=== PATIENT | female | born 1935 | race Caucasian/White ===

== ENCOUNTER 2024-02-25 10:31 | Emergency (ER) | payer MEDICARE, SELFPAY ==
[2024-02-25 10:36] VITALS: BP 153/76; PULSE 78; TEMP 36.8; O2SAT 98; BMI 32.3
--- NOTE | 2024-02-25 10:44 | PC.NURSE ---
Complains of pain to left knee, and left foot, denies injury to area, skin to LLE pink and warm and pulses present, no redness, bruising or swelling present.
--- NOTE | 2024-02-25 10:49 | XR_ITS ---
The [address] [address] Patient Name: ESPERANZA TELLEZ MRN: [id number] date: 1935 Sex: F Assigned Patient Location: ER Current Patient Location: ER Accession/Order Number: [id number] Exam Date: 02/25/2024 11:20 Report Date: 02/25/2024 12:51 At the request of: ADOLPH DOYLE Procedure: XR knee LT 3V EXAM: XR knee LT 3V HISTORY: pain COMPARISON: None. TECHNIQUE: AP, oblique, lateral x-ray left knee. FINDINGS: No fracture or focal bone lesion. Minor spurring without joint space narrowing. Subcutaneous edema. Joint effusion suprapatellar bursa. Faint chondrocalcinosis. No erosive or destructive change. XR/XR knee LT 3V IMPRESSION: Negative for fracture. Joint effusion, subcutaneous edema. Chondrocalcinosis without bony erosion. Electronically authenticated by: MARGO SANFORD Date: 02/25/2024 12:51
--- NOTE | 2024-02-25 10:49 | XR_ITS ---
The [address] [address] Patient Name: ESPERANZA TELLEZ MRN: [id number] date: 1935 Sex: F Assigned Patient Location: ER Current Patient Location: ER Accession/Order Number: [id number] Exam Date: 02/25/2024 11:20 Report Date: 02/25/2024 12:39 At the request of: ADOLPH DOYLE Procedure: XR foot LT 2V HISTORY: Left foot pain and swelling. XR foot LT 2V: 02/25/2024 11:20 AM EST COMPARISON: None. FINDINGS: There is soft tissue swelling along the dorsum of the foot. No fracture or dislocation is seen. There is a hallux valgus deformity. There appear to be at least mild degenerative changes of the first MTP joint and first metatarsal-sesamoid joints. There is a bipartite medial sesamoid bone. There is an enthesophyte at the Achilles tendon insertion on the calcaneus. There is an os peroneum. XR/XR foot LT 2V IMPRESSION: There is nonspecific soft tissue swelling along the dorsum of the foot, but no fracture or dislocation is seen. Electronically authenticated by: KENTRELL TAN Date: 02/25/2024 12:39
[2024-02-25] MEDS: KETOROLAC TROMETHAMINE 30 MG/ML VIAL 15 MG IM (10:56)
--- NOTE | 2024-02-25 11:05 | ED_ITS ---
HPI HPI - Extremity Injury (Lower) General Chief Complaint: Extremity Injury, Lower Stated Complaint: Extremity pain, lower Time Seen by Provider: 02/25/24 10:44 Source: patient Mode of arrival: Wheelchair History of Present Illness HPI Narrative: Patient is coming to the ER with left foot pain and left knee pain that started over the last 2 days she denies any fall or trauma, mentioned that she has not been able to put weight on her left foot since that day because of the pain Related Data Home Medications ?Medication ?Instructions ?Recorded ?Confirmed allopurinol 100 mg tablet 100 mg PO .every other day 02/25/24 02/25/24 carvedilol 25 mg tablet 25 mg PO BID 02/25/24 02/25/24 triamterene 37.5 1 tab PO QAM 02/25/24 02/25/24 mg-hydrochlorothiazide 25 mg tablet Previous Rx's ?Medication ?Instructions ?Recorded acetaminophen 650 mg 650 mg PO Q8H PRN pain #20 tabs 02/25/24 tablet,extended release (Tylenol Arthritis Pain) prednisone 20 mg tablet 40 mg (2 x 20 mg) PO DAILY 3 days 02/25/24 #6 tabs tramadol 50 mg tablet 50 mg PO BID PRN pain #6 tabs 02/25/24 Allergies Allergy/AdvReac Type Severity Reaction Status Date / Time No Known Drug Allergies Allergy Verified 02/25/24 10:42 Opioid HPI Opioid Management Most Recent Pain and Opioid Data: Last Pain Scale 6 02/25/24 10:56 02/25/24 Last ED Pain Assessment 02/25/24 10:55 Last MAR Pain Assessment 02/25/24 10:56 Review of Systems ROS Status of ROS 10 or more systems reviewed and unremark able except as noted in history and below [facility] Medical History (Updated 02/25/24 @ 13:52 by Serenity Rand MD) HTN (hypertension) ?I10 - Essential (primary) hypertension (ICD-10) Gout ?M10.9 - Gout, unspecified (ICD-10) Social History Little interest or pleasure in doing things: not at all Feeling down, depressed, or hopeless: not at all Exam Narrative Exam Narrative: Nurses notes and vital signs reviewed and patient is not hypoxic. Left lower extremity: There is a mild edema on the dorsum of the left foot with the patient have a good anterior tibial pulse the patient also have pain upon palpation of the anterior patella on the left side with the knee having some limitation of movement due to pain and small effusion There is no redness hotness or any signs of infection General: Well-appearing and in no apparent distress. Skin: Warm, dry, no pallor noted. No rash. Head: Normocephalic, atraumatic. Neck: Supple, non-tender. Eye: Pupils are equal, round and EOMI. No scleral icterus. Ears, Nose, Mouth, and Throat: TM are clear, no nasal mucosal hypertrophy. Oral mucosa is moist, no posterior oropharynx erythema, uvula is mid-line Cardiovascular: Regular Rate and Rhythm without murmur, gallop or rub. Respiratory: No accessory muscle use or respiratory distress. Lungs are clear to auscultation, no wheezing, rales or rhonchi Chest Wall: no tenderness Back: No midline thoracic or lumbar vertebral tenderness. No CVA tenderness GI: Abdomen is soft, non-distended. Normal bowel sounds. No masses appreciated. No tenderness to palpation. No rebound, guarding, or rigidity noted. Neurological: A&O x4. No cranial nerve dysfunction observed. No truncal ataxia. Moves all extremities. Sensation intact. Psychiatric: Cooperative and interactive. Normal mood and affect. Constitutional Vital Signs, click to edit/add: Last Vital Signs Temp 98.3 F 02/25/24 10:36 Pulse 78 02/25/24 10:36 Resp 16 02/25/24 10:36 BP 153/76 H 02/25/24 10:36 Pulse Ox 98 02/25/24 10:36 O2 Del Method Room Air 02/25/24 10:36 Course Vital Signs Vital signs: Vital Signs Temperature 98.3 F 02/25/24 10:36 Pulse Rate 78 02/25/24 10:36 Respiratory Rate 16 02/25/24 10:36 Blood Pressure 153/76 H 02/25/24 10:36 Pulse Oximetry 98 02/25/24 10:36 Oxygen Delivery Method Room Air 02/25/24 10:36 Temperature 98.3 F 02/25/24 10:36 Pulse Rate 78 02/25/24 10:36 Respiratory Rate 16 02/25/24 10:36 Blood Pressure 153/76 H 02/25/24 10:36 Pulse Oximetry 98 02/25/24 10:36 Oxygen Delivery Method Room Air 02/25/24 10:36 MDM - Extremity Injury (Lower) MDM Narrative Medical decision making narrative: Patient x-ray of the foot as well as x-ray of the knee showed no acute pathology The patient presentation could be secondary to arthritis or gout the patient was treated in the ER with Toradol after which she felt feeling better She was discharged home with tramadol prednisone for the next 3 days and Tylenol Patient was able to ambulate better after initial treatment ,she was instructed to come back in case of new symptoms of concern The patient is to follow up with primary care physician in next 2-3 days or to return to the emergency department should any of the signs or symptoms worsen or new symptoms develop. The patient agrees with the following Diagnosis and Treatment plan and the patient will be discharged home. Discharge Plan Discharge Chief Complaint: Extremity Injury, Lower Clinical Impression: Arthritis, Gout Patient Disposition: Home, Self-Care Time of Disposition Decision: 13:52 Condition: Good Prescriptions / Home Meds: New prednisone 20 mg tablet 40 mg PO DAILY 3 Days Qty: 6 0RF acetaminophen [Tylenol Arthritis Pain] 650 mg tablet extended release 650 mg PO Q8H PRN (Reason: pain) Qty: 20 0RF tramadol 50 mg tablet 50 mg PO BID PRN (Reason: pain) Qty: 6 0RF No Action allopurinol 100 mg tablet 100 mg PO .every other day carvedilol 25 mg tablet 25 mg PO BID triamterene-hydrochlorothiazid 37.5-25 mg tablet 1 tab PO QAM Print Language: Polish Instructions: Osteoarthritis (DC), Gout (ED) Referrals: Physician,Non-Staff, MD [Primary Care Provider] - 1 week Discharge Date/Time: 02/25/24 14:06
[2024-02-25 11:58] VITALS: BP 136/67; PULSE 68; O2SAT 96
[2024-02-25] MEDS: TRAMADOL HCL 50 MG TABLET PO (13:36)
== END 2024-02-25 14:06 | disposition home or self-care (01) ==
PROVIDERS: Emergency Provider Emergency Medicine
DX: M10.9 Gout, unspecified (principal); M19.90 Unspecified osteoarthritis, unspecified site; M25.462 Effusion, left knee
CPT/HCPCS: 73562; 73620; 96372; 99284; J1885

== ENCOUNTER 2024-12-07 15:09 | Emergency (ER) | payer MEDICARE, SELFPAY ==
[2024-12-07 15:13] VITALS: BP 180/77; PULSE 93; TEMP 36.4; O2SAT 96; BMI 32.4
--- OUTSIDE RECORDS SUMMARY | 2024-12-07 15:24 | XMS_ITS | CCD ---
Author Organization [facility] Care Team Providers [employer] Driver Name Role Phone MATT, DR BUENO Admitting Unavailable ANAND, DR BUENO Primary Care Unavailable ANAND, DR BUENO Consulting Unavailable ANAND, DR BUENO Attending Unavailable ANAND, DR BUENO Primary Care Unavailable HEMMER, DR NANCY Rangel Admitting Unavailable HEMMER, DR NANCY Rangel Attending Unavailable WEST, DR JACINTO Weiss Consulting Unavailable HEMMER, DR NANCY Rangel Consulting Unavailable ANAND, DR BUENO Primary Care Unavailable HEMMER, DR NANCY Rangel Admitting Unavailable ZIEBER, DR CHLOE Agee Consulting Unavailable HEMELIZABETH, DR NANCY Rangel Attending Unavailable HEMMER, DR NANCY Rangel Consulting Unavailable MATT, DR BUENO Primary Care Unavailable ANAND, DR BUENO Consulting Unavailable ANAND, DR BUENO Attending Unavailable ANAND, DR BUENO Admitting Unavailable ZIEBER, DR CHLOE Agee Consulting Unavailable Nicole, Flor Unavailable Phu Anand MD Unavailable Phu Anand MD Primary Care Provider [place] BODY WORKER, Mary Unavailable Unavailable [place] BODY WORKER, Mary Unavailable NANCY MUELLER Attending Unavailable HEMELIZABETH, NANCY Rangel Attending Unavailable HEMELIZABETH, NANCY Rangel Attending Unavailable HEMMERNANCY Attending Unavailable HEMMER, NANCY Rangel Attending Unavailable HEMMER, NANCY Rangel Attending Unavailable Allergies Allergy Classification Reported Allergen(s) Allergy Type Date of Onset Reaction(s) Facility (16 sources) Cephalexin Drug Allergy 12-06-2022 Anaphylaxis [facility] Medications Current Medications Medication Drug Class(es) Dates Sig (Normalized) Sig (Original) Acetaminophen (1 source) Acetaminophen Active allopurinol 100 mg oral tablet (17 sources) Xanthine Oxidase Inhibitor Start: 01-12-2022 End: 01-10-2024 take 1 tablet by mouth every other day allopurinol (Zyloprim) 100 MG tablet Indications: Elevated uric acid in blood Take 1 tablet (100 mg) by mouth every other day 45 tablet 3 01/10/2024 Active carvedilol 25 mg oral tablet (18 sources) alpha-Adrenergic Shyam, beta-Adrenergic Shyam Start: 11-16-2023 End: 01-10-2024 take 1 tablet by mouth in the morning carvedilol (Coreg) 25 MG tablet Indications: Essential hypertension Take 1 tablet (25 mg) by mouth in the morning and 1 tablet (25 mg) in the evening. Take with meals. Take with food.. 180 tablet 3 01/10/2024 Active Carvedilol Activ e cholecalciferol 0.05 mg oral capsule (13 sources) Vitamin D Start: 07-03-2024 take 1 capsule by mouth once daily cholecalciferol (Vitamin D-3) 50 MCG (2000 UT) capsule Indications: Vitamin D deficiency Take 1 capsule (50 mcg) by mouth Daily 100 capsule 3 07/03/2024 Active Start: 11-25-2022 End: 01-10-2024 take 1 capsule by mouth once daily cholecalciferol (Vitamin D-3) 125 MCG (5000 UT) capsule Indications: Vitamin D deficiency TAKE ONE CAPSULE BY MOUTH DAILY 90 capsule 11/25/2022 01/10/2024 Discontinued (Other) fluticasone propionate 0.05 mg/actuat metered dose nasal spray (1 source) Corticosteroid Start: 09-02-2021 take 2 spray(s) nasal route once daily Fluticasone Propionate 50 MCG/ACT 2 sprays Nasally Once a day for 14 day(s) August, Active hydroCHLOROthiazide 25 mg / triamterene 37.5 mg oral tablet (17 sources) Potassium-sparing Diuretic, Thiazide Diuretic Start: 03-29-2023 End: 01-10-2024 take 1 tablet by mouth in the morning triamterene-hydro chlorothiazide (Maxzide-25) 37.5-25 MG tablet Indications: Essential hypertension Take 1 tablet by mouth in the morning. 100 tablet 3 01/10/2024 Active triamcinolone acetonide 0.25 mg/ml topical cream (16 sources) Corticosteroid Start: 11-16-2023 triamcinolone (Kenalog) 0.025 % cream Indications: Dermatitis Apply topically 2 (two) times a day 30 g 2 11/16/2023 Active Triamterene-HCTZ (1 source) Triamterene-HCTZ Active Completed/Discontinued Medications Medication Drug Class(es) Dates Sig (Normalized) Sig (Original) Albuterol Sulfate (2.5 MG/ 3 ML) 2.5 MG/3ML 0.083% Nebulization Solution (1 source) Start: 04-10-2016 Albuterol Sulfate (2.5 MG/ 3 ML) 2.5 MG/3ML 0.083% Nebulization Solution 3ml as needed Inhalation 4 times a day Mar, Not-Taking Blood Glucose Monitoring Suppl (Blood Glucose Monitor System) w/Device kit (8 sources) Start: 07-05-2024 End: 10-08-2024 Blood Glucose Monitoring Suppl (Blood Glucose Monitor System) w/Device kit Indications: Type 2 diabetes mellitus with other specified complication, without long-term current use of insulin ([facility]) 1 each Daily 1 kit 07/05/2024 10/08/2024 Discontinued Start: 07-05-2024 Blood Glucose Monitoring Suppl (Blood Glucose Monitor System) w/Device kit Indications: Type 2 diabetes mellitus with other specified complication, without long-term current use of insulin ([facility]) 1 each Daily 1 kit 07/05/2024 Active Start: 07-05-2024 Blood Glucose Monitoring Suppl (Blood Glucose Monitor System) w/Device kit Indications: Type 2 diabetes mellitus with other specified complication, without long-term current use of insulin 1 each Daily 1 kit 07/05/2024 Active Start: 07-05-2024 Blood Glucose Monitoring Suppl (Blood Glucose Monitor System) w/Device kit Indications: Type 2 diabetes mellitus with other specified complication, without long-term current use of insulin ([facility]) 1 each Daily 1 kit 07/05/2024 Active Naproxen (1 source) Nonsteroidal Anti-inflammatory Drug Aleve Not-Taking oseltamivir 75 mg oral capsule (1 source) Neuraminidase Inhibitor Start: 04-10-20 16 take 1 capsule by mouth every twelve hours Tamiflu 75 MG 1 capsule Orally Twice a day for 5 day(s) Mar, Not-Taking Propranolol (1 source) beta-Adrenergic Shyam Proprano lol HCl Not-Taking Problems Active Problems Problem Classification Problem Date Documented Date Episodic/Chronic Administrative/social admission (2 sources) Patient encounter status; Translations: [Other specified counseling] 01-10-2024 Episodic Chronic kidney disease (20 sources) Chronic kidney disease stage 3B ; Translations: [Stage 3b chronic kidney disease (HCC)] Onset: 12-06-2022 Resolved: 07-05-2024 12-06-2022 Chronic Diabetes mellitus with complications (6 sources) Type 2 diabetes mellitus; Translations: [Type 2 diabetes mellitus with other specified complication] 07-05-2024 Chronic Diabetes mellitus without complication (1 source) Impaired fasting glycemia; Translations: [Impaired fasting glucose] 07-03-2024 Episodic Disorders of lipid metabolism (20 sources) Pure hypercholesterolemia; Translations: [Pure hypercholesterolemia, unspecified] Onset: 12-06-2022 Resolved: 07-03-2024 12-06-2022 Chronic Esophageal disorders (18 sources) Gastroesophageal reflux disease without esophagitis; Translations: [Gastro-esophageal reflux disease without esophagitis] Onset: 12-06-2022 12-06-2022 Chronic Essential hypertension (20 sources) Essential hypertension; Translations: [Essential (primary) hypertension] Onset: 10-24-2007 12-06-2022 Chronic Gout and other crystal arthropathies (20 sources) Primary gout; Translations: [Idiopathic gout, unspecified site] Onset: 12-06-2022 12-06-2022 Chronic Headache; including migraine (18 sources) Migraine without aura, not refractory ; Translations: [Migraine without aura, not intractable, without status migrainosus] Onset: 12-06-2022 12-06-2022 Chronic Hypertension with complications and secondary hypertension (19 sources) Hypertensive chronic kidney disease with stage 1 through stage 4 chronic kidney disease, or unspecified chronic kidney disease; Translations: [Benign hypertensive heart AND renal disease] Onset: 07-09-2020 12-06-2022 Chronic Menopausal disorders (20 sources) Other primary ovarian failure; Translations: [Decreased estrogen level] Onset: 06-11-2021 Chronic Nausea and vomiting (5 sources) Nausea; Translations: [Nausea] Onset: 10-21-2020 Episodic Nutritional deficiencies (20 sources) Vitamin D deficiency; Translations: [Vitamin D deficiency, unspecified] Onset: 12-06-2022 12-06-2022 Chronic Osteoporosis (18 sources) Localized osteoporosis - [place]; Translations: [Localized osteoporosis [[place]]] Onset: 12-06-2022 12-06-2022 Chronic Other bone disease and musculoskeletal deformities (1 source) Other specified disorders of bone density and structure, unspecified site; Translations: [OTH D/O BONE DEN STRUCT UNS SITE] Onset: 06-12-2021 Episodic Other connective tissue disease (4 sources) Pain in right foot; Translations: [PAIN IN RIGHT FOOT] Onset: 06-02-2021 Episodic Other connective tissue disease (1 source) Other specified soft tissue disorders; Translations: [OTHER SPEC SOFT TISSUE DISORDERS] Onset: 06-04-2021 Episodic Other connective tissue disease (1 source) Pain in left lower limb; Translations: [Pain in left leg] 03-07-2024 Episodic Other diseases of veins and lymphatics (1 source) Compression of vein; Translations: [COMPRESSION OF VEIN] Onset: 06-04-2021 Episodic Other inflammatory condition of skin (18 sources) Rosacea; Translations: [Other rosacea] Onset: 12-06-2022 12-06-2022 Chronic Other nervous system disorders (18 sources) Polyneuropathy; Translations: [Polyneuropathy, unspecified] Onset: 12-06-2022 12-06-2022 Chronic Other nutritional; endocrine; and metabolic disorders (20 sources) Hypercalcemia; Translations: [Hypercalcemia] Onset: 12-06-2022 12-06-2022 Chronic Other nutritional; endocrine; and metabolic disorders (20 sources) Morbid obesity; Translations: [Morbid (severe) obesity due to excess calories] Onset: 12-06-2022 12-06-2022 Chronic Other nutritional; endocrine; and metabolic disorders (20 sources) Body mass index 30+ - obesity; Translations: [Obesity, unspecified] Onset: 12-06-2022 Resolved: 10-08-2024 12-06-2022 Chronic Other upper respiratory disease (1 source) Allergic rhinitis; Translations: [Allergic rhinitis, unspecified] Chronic Other upper respiratory disease (1 source) Allergic rhinitis, unspecified Onset: 09-02-2021 Resolved: 09-02-2021 Chronic Spondylosis; intervertebral disc disorders; other back problems (18 sources) Degeneration of lumbar intervertebral disc; Translations: [Lumbar degenerative disc disease] Onset: 12-06-2022 12-06-2022 Chronic Unclassified (1 source) CHRN KIDNEY DISEASE STG 3 UNSP; Translations: [CHRN KIDNEY DISEASE STG 3 UNSP] Onset: 07-09-2020 Past or Other Problems Problem Classification Problem Date Documented Da te Episodic/Chronic Mood disorders (14 sources) Mood disorders Onset: 01-10-2024 01-10-2024 Other inflammatory condition of skin (16 sources) Dermatitis herpetiformis; 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] Onset: 12-06-2022 Resolved: 01-10-2024 12-06-2022 Chronic Other liver diseases (18 sources) Alkaline phosphatase raised; Translations: [Abnormal levels of other serum enzymes] Onset: 12-06-2022 12-06-2022 Episodic Other nutritional; endocrine; and metabolic disorders (18 sources) Blood urate raised; Translations: [Hyperuricemia without signs of inflammatory arthritis and tophaceous disease] Onset: 12-06-2022 12-06-2022 Episodic Other screening for suspected conditions (not mental disorders or infectious disease) (18 sources) Abnormal presence of myoglobin; Translations: [Abnormal histological findings in specimens from other organs, systems and tissues] Onset: 12-06-2022 12-06-2022 Episodic Other skin disorders (18 sources) Actinic keratosis; Translations: [Actinic keratosis] Onset: 12-06-2022 12-06-2022 Episodic Pleurisy; pneumothorax; pulmonary collapse (18 sources) Atelectasis; Translations: [Atelectasis] Onset: 12-06-2022 12-06-2022 Episodic Residual codes; unclassified (4 sources) Localized edema; Translations: [LOCALIZED EDEMA] Onset: 07-01-2020 Episodic Results Test Name Value Interpretation Reference Range Facility ALBUMIN, RANDOM URINE W/CREA [place] 10-10-2024 ALBUMIN, URINE 2.0 mg/dL Normal See Note: [facility] Comment on above: Result Comment: Refe rence Range: Reference Range Not established Performed By: #### 6 517 #### [facility] [place] [address] [place] , [address] [place] [id number] Shop Girl: Brandon Browning MD ALBUMIN/CREATININE RATIO, RANDOM URINE 19 mg/g creat Normal <30 [facility] Comment on above: Result Comment: The ADA defines abnormalities in albumin excretion as follows: Albuminuria Category Result (mg/g creatinine) Normal to Mildly increased <30 Moderately increased 30-299 Severely increased > OR = 300 The ADA recommends that at least two of three specimens collected within a 3-6 month period be abnormal before considering a patient to be within a diagnostic category. Performed By: #### 6 517 #### [facility] [place] [address] Shop Girl: Brandon Browning MD Creatinine (U) [Mass/Vol] 105 mg/dL Normal 20-275 [facility] Comment on above: Performed By: #### 6 517 #### [facility] [place] [address] Shop Girl: Brandon Browning MD Laboratory - Hematology and Cell countson 10-08-2024 HbA1c (Bld) [Mass fraction] 6.3 % [facility] [employer] No Panel Informationon 10-08 Interpretation and review of laboratory results Abnormal [facility] CBC (INCLUDES DIFF/PLT)on Basophils (Bld) [#/Vol] 0.028 10*3/uL Normal 0-200 [facility] Comment on above: Performed By: #### 4 96, 36857, 7600, 905, 78706, 6399 #### [facility] [place] [address] Shop Girl: Brandon Browning MD Basophils/100 WBC (Bld) 0.4 % Normal [facility] Comment on above: Performed By: #### 4 96, 30436, 7600, 905, 10807, 6399 #### [facility] [address], [address] [place] [address] Shop Girl: Brandon Browning MD Eosinophils (Bld) [#/Vol] 0.186 10*3/uL Normal 15-500 [facility] Comment on above: Performed By: #### 4 96, 32045, 7600, 905, 42940, 6399 #### [facility] [place] [address] Shop Girl: Brandon Browning MD Eosinophils/100 WBC (Bld) 2.7 % Normal [facility] Comment on above: Performed By: #### 4 96, 63086, 7600, 905, 32664, 6399 #### [facility] of [address], [address] [place] [address] Shop Girl: Branodn Browning MD Erythrocyte distribution width (RBC) [Ratio] 13.9 % Normal 11.0-15.0 [facility] Comment on above: Performed By: #### 4 96, 60306, 7600, 905, 50227, 6399 #### [facility] of [address], [address] [place] [address] Shop Girl: Brandon Browning MD Hematocrit (Bld) [Volume fraction] 37.3 % Normal 35.0-45.0 [facility] Comment on above: Performed By: #### 4 96, 74324, 7600, 905, 64507, 6399 #### [facility] of [address], [address] [place] [address] Shop Girl: Brandon Browning MD Hemoglobin (Bld) [Mass/Vol] 12.5 g/dL Normal 11.7-15.5 [facility] Comment on above: Performed By: #### 4 96, 92649, 7600, 905, 08915, 6399 #### [facility] of [address], [address] [place] [address] Shop Girl: Brandon Browning MD Lymphocytes (Bld) [#/Vol] 2.346 10*3/uL Normal 850-3900 [facility] Comment on above: Performed By: #### 4 96, 83447, 7600, 905, 94650, 6399 #### [facility] of [address], [address] [place] [address] Shop Girl: Brandon Browning MD Lymphocytes/100 WBC (Bld) 34.0 % Normal [facility] Comment on above: Performed By: #### 4 96, 64538, 7600, 905, 44801, 6399 #### [facility] of [address], [address] [place] [address] Shop Girl: Brandon Browning MD MCH (RBC) [Entitic mass] 29.6 pg Normal 27.0-33.0 [facility] Comment on above: Performed By: #### 4 96, 73413, 7600, 905, 13945, 6399 #### [facility] of [place] [address] Shop Girl: Brandon Browning MD MCHC (RBC) [Mass/Vol] 33.5 g/dL Normal 32.0-36.0 [facility] Comment on above: Result Comment: For adults, a slight decrease in the calculated MCHC value (in the range of 30 to 32 g/dL) is most likely not clinically significant; however, it should be interpreted with caution in correlation with other red cell parameters and the patient's clinical condition. Performed By: #### 4 96, 13099, 7600, 905, 39214, 6399 #### [facility] [place] [address] Shop Girl: Brandon Browning MD MCV (RBC) [Entitic vol] 88.2 fL Normal 80.0-100.0 [facility] Comment on above: Performed By: #### 4 96, 05975, 7600, 905, 25427, 6399 #### [facility] [place] [address] Shop Girl: Brandon Browning MD Monocytes (Bld) [#/Vol] 0.49 10*3/uL Normal 200-950 [facility] Comment on above: Performed By: #### 4 96, 61929, 7600, 905, 32303, 6399 #### [facility] of [place] [address] Shop Girl: Brandon Browning MD Monocytes/100 WBC (Bld) 7.1 % Normal [facility] Comment on above: Performed By: #### 4 96, 07891, 7600, 905, 76609, 6399 #### [facility] [place] [address] Shop Girl: Brandon Browning MD Neutrophils (Bld) [#/Vol] 3.85 10*3/uL Normal 3110-9413 [facility] Comment on above: Performed By: #### 4 96, 14401, 7600, 905, 39673, 6399 #### [facility] of [place] [address] Shop Girl: Brandon Browning MD Neutrophils/100 WBC (Bld) 55.8 % Normal [facility] Comment on above: Performed By: #### 4 96, 33403, 7600, 905, 67832, 6399 #### [facility] of [place] [address] Shop Girl: Brandon Browning MD Platelet mean volume (Bld) [Entitic vol] 11.2 fL Normal 7.5-12.5 [facility] Comment on above: Performed By: #### 4 96, 11994, 7600, 905, 49376, 6399 #### [facility] of [place] [address] Shop Girl: Brandon Browning MD Platelets (Bld) [#/Vol] 257 10*3/uL Normal 140-400 [facility] Comment on above: Performed By: #### 4 96, 99231, 7600, 905, 92684, 6399 #### [facility] of [place] [address] Shop Girl: Brandon Browning MD RBC (Bld) [#/Vol] 4.23 10*6/uL Normal 3.80-5.10 [facility] Comment on above: Performed By: #### 4 96, 58652, 7600, 905, 35061, 6399 #### [facility] of [place] [address] Shop Girl: Brandon Browning MD WBC (Bld) [#/Vol] 6.9 10*3/uL Normal 3.8-10.8 [facility] Comment on above: Performed By: #### 4 96, 79055, 7600, 905, 47562, 6399 #### [facility] of [address], [address] [place] [address] Shop Girl: Brandon Browning MD COMPREHENSIVE METABOLIC PANE [facility] 07-04-2024 Albumin [Mass/Vol] 4.1 g/dL Normal 3.6-5.1 [facility] Comment on above: Performed By: #### 4 96, 85300, 7600, 905, 10892, 6399 #### [facility] of [place] [address] Shop Girl: Brandon Browning MD Albumin/Globulin [Mass ratio] 1.8 {ratio} Normal 1.0-2.5 [facility] Comment on above: Performed By: #### 4 96, 28199, 7600, 905, 93875, 6399 #### [facility] of [place] [address] Shop Girl: Brandon Browning MD ALP [Catalytic activity/Vol] 83 U/L Normal 37-153 [facility] Comment on above: Performed By: #### 4 96, 04521, 7600, 905, 96416, 6399 #### [facility] of [place] [address] Shop Girl: Brandon Browning MD ALT [Catalytic activity/Vol] 15 U/L Normal 6-29 [facility] Comment on above: Performed By: #### 4 96, 13048, 7600, 905, 64060, 6399 #### [facility] of [place] [address] Shop Girl: Brandon Browning MD AST [Catalytic activity/Vol] 11 U/L Normal 10-35 [facility] Comment on above: Performed By: #### 4 96, 46885, 7600, 905, 28982, 6399 #### [facility] of [place] [address] Shop Girl: Brandon Browning MD Bilirubin [Mass/Vol] 0.6 mg/dL Normal 0.2-1.2 [facility] Comment on above: Performed By: #### 4 96, 39320, 7600, 905, 34790, 6399 #### [facility] [place] [address] Shop Girl: Brandon Browning MD Calcium [Mass/Vol] 10.8 mg/dL High 8.6-10.4 [facility] Comment on above: Performed By: #### 4 96, 60489, 7600, 905, 35613, 6399 #### [facility] [place] [address] Shop Girl: Brandon Browning MD Chloride [Moles/Vol] 104 mmol/L Normal 98-110 [facility] Comment on above: Performed By: #### 4 96, 35492, 7600, 905, 46009, 6399 #### [facility] [place] [address] Shop Girl: Brandon Browning MD CO2 [Moles/Vol] 27 mmol/L Normal 20-32 [facility] Comment on above: Performed By: #### 4 96, 04463, 7600, 905, 15679, 6399 #### [facility] [place] [address] Shop Girl: Brandon Browning MD Creatinine [Mass/Vol] 1.60 mg/dL High 0.60-0.95 [facility] Comment on above: Performed By: #### 4 96, 55830, 7600, 905, 70143, 6399 #### [facility] of [place] [address] Shop Girl: Brandon Browning MD GFR/1.73 sq M.predicted among non-blacks MDRD (S/P/Bld) [Vol rate/Area] 31 mL/min/{1.73_m2} Low > OR = 60 [facility] Comment on above: Performed By: #### 4 96, 38841, 7600, 905, 90415, 6399 #### [facility] of [address], [address] [place] [address] Shop Girl: Brandon Browning MD Globulin (S) [Mass/Vol] 2.3 g/dL Normal 1.9-3.7 [facility] Comment on above: Performed By: #### 4 96, 40956, 7600, 905, 76801, 6399 #### [facility] [place] [address] Shop Girl: Brandon Browning MD Glucose [Mass/Vol] 141 mg/dL High 65-99 [facility] Comment on above: Result Comment: Fasting reference interval For someone without known diabetes, a glucose value >125 mg/dL indicates that they may have diabetes and this should be confirmed with a follow-up test. Performed By: #### 4 96, 64489, 7600, 905, 66168, 6399 #### [facility] [place] [address] Shop Girl: Brandon Browning MD Potassium [Moles/Vol] 5.1 mmol/L Normal 3.5-5.3 [facility] Comment on above: Performed By: #### 4 96, 76067, 7600, 905, 76536, 6399 #### [facility] [place] [address] Shop Girl: Brandon Browning MD Protein [Mass/Vol] 6.4 g/dL Normal 6.1-8.1 [facility] Comment on above: Performed By: #### 4 96, 35616, 7600, 905, 75031, 6399 #### [facility] [place] [address] Shop Girl: Brandon Browning MD Sodium [Moles/Vol] 141 mmol/L Normal 135-146 [facility] Comment on above: Performed By: #### 4 96, 07683, 7600, 905, 72440, 6399 #### [facility] [place] [address] Shop Girl: Brandon Browning MD Urea nitrogen [Mass/Vol] 31 mg/dL High 7-25 [facility] Comment on above: Performed By: #### 4 96, 55929, 7600, 905, 05096, 6399 #### [facility] [address], [address] [place] [address] Shop Girl: Brandon Browning MD Urea nitrogen/Creatinine [Mass ratio] 19 mg/mg Normal 6-22 [facility] Comment on above: Performed By: #### 4 96, 42831, 7600, 905, 27587, 6399 #### [facility] of [address], [address] [place] [address] Shop Girl: Brandon Browning MD HEMOGLOBIN A1con 07-04-2024 HEMOGLOBIN A1c 7.1 % of total Hgb High <5.7 [facility] Comment on above: Result Comment: For someone without known diabetes, a hemoglobin A1c value of 6.5% or greater indicates that they may have diabetes and this should be confirmed with a follow-up test. For someone with known diabetes, a value <7% indicates that their diabetes is well controlled and a value greater than or equal to 7% indicates suboptimal control. A1c targets should be individualized based on duration of diabetes, age, comorbid conditions, and other considerations. Currently, no consensus exists regarding use of hemoglobin A1c for diagnosis of diabetes for children. Performed By: #### 4 96, 20306, 7600, 905, 64001, 6399 #### [facility] of [address], [address] [place] [address] Shop Girl: Brandon Browning MD LIPID PANEL, STANDARDon 06-10 Cholesterol [Mass/Vol] 270 mg/dL High <200 [facility] Comment on above: Order Comment: FASTI NG:YES FASTING: YES Performed By: #### 4 96, 40324, 7600, 905, 87303, 6399 #### [facility] [address], [address] [place] [address] Shop Girl: Brandon Browning MD Cholesterol in HDL [Mass/Vol] 42 mg/dL Low > OR = 50 [facility] Comment on above: Order Comment: FASTI NG:YES FASTING: YES Performed By: #### 4 96, 94609, 7600, 905, 37998, 6399 #### [facility] [address], [address] [place] [address] Shop Girl: Brandon Browning MD Cholesterol.total/C holesterol in HDL [Mass ratio] 6.4 {ratio} High <5.0 [facility] Comment on above: Order Comment: FASTI NG:YES FASTING: YES Performed By: #### 4 96, 54129, 7600, 905, 68765, 6399 #### [facility] [address], [address] Shop Girl: Brandon Browning MD LDL-CHOLESTEROL Normal [facility] Comment on above: Order Comment: FASTI NG:YES FASTING: YES Result Comment: LDL cholesterol not calculated. Triglyceride levels greater than 400 mg/dL invalidate calculated LDL results. Reference range: <100 Desirable range <100 mg/dL for primary prevention; <70 mg/dL for patients with CHD or diabetic patients with > or = 2 CHD risk factors. LDL-C is now calculated using the Kamran-Lemuel calculation, which is a validated novel method providing better accuracy than the Friedewald equation in the estimation of LDL-C. Kamran PARKINSON et al. JAKY. 2013;310(19): 6995-9542 (http://education.bMobilized.Taplister/faq/BXQ060) Performed By: #### 4 96, 84954, 7600, 905, 78971, 6399 #### [facility] [address], [address] [place] [address] Shop Girl: Brandon Browning MD NON HDL CHOLESTEROL 228 mg/dL (calc) High <130 [facility] Comment on above: Order Comment: FASTI NG:YES FASTING: YES Result Comment: Non- HDL level > or = 220 is very high and may indicate genetic familial hypercholesterolemia (FH). Clinical assessment and measurement of blood lipid levels should be considered for all first-degree relatives of patients with an FH diagnosis. For patients with diabetes plus 1 major ASCVD risk factor, treating to a non-HDL-C goal of <100 mg/dL (LDL-C of <70 mg/dL) is considered a therapeutic option. Performed By: #### 4 96, 10561, 7600, 905, 63757, 6399 #### [facility] [address], [address] [place] [address] Shop Girl: Brandon Browning MD Triglyceride [Mass/Vol] 466 mg/dL High <150 [facility] Comment on above: Order Comment: FASTI NG:YES FASTING: YES Result Comment: If a non-fasting specimen was collected, consider repeat triglyceride testing on a fasting specimen if clinically indicated. Rae et al. J. of Clin. Lipidol. 2015;9:129-169. Performed By: #### 4 96, 63066, 7600, 905, 95935, 6399 #### [facility] [address], [address] [place] [address] Shop Girl: Brandon Browning MD TEST AUTHORIZATIONon 025 CLIENT CONTACT: NANCY MUELLER/KAELA Normal [facility] Comment on above: Performed By: #### 4 96, 58884, 7600, 905, 64181, 6399 #### [facility] [address], [address] [place] [address] Shop Girl: Brandon Browning MD COMMENT Normal [facility] Comment on above: Result Comment: Plea se have the ordering physician or his or her authorized contact center representative sign a copy of this report and promptly return it by faxing it to: [phone] or by returning the form to your rolloff truck driver. Performed By: #### 4 96, 20336, 7600, 905, 91623, 6399 #### [facility] [address], [address] [place] [address] Shop Girl: Brandon Browning MD REPORT ALWAYS MESSAGE SIGNATURE Normal [facility] Comment on above: Result Comment: The laboratory testing on this patient was verbally requested or confirmed by the ordering physician or his or her authorized contact center representative after contact with an employee of [employer]. Federal regulations require that we maintain on file written authorization for all laboratory testing. Accordingly we are asking that the ordering physician or his or her authorized contact center representative sign a copy of this report and promptly return it to the client service manager. Signature: Performed By: #### 4 96, 38658, 7600, 905, 06545, 6399 #### [facility] [place] [address] Shop Girl: Brandon Browning MD TEST CODE: [id number] Normal [facility] Comment on above: Performed By: #### 4 96, 99949, 7600, 905, 88608, 6399 #### [facility] [place] [address] Shop Girl: Brandon Browning MD TEST NAME: HEMOGLOBIN A1c Normal [facility] Comment on above: Performed By: #### 4 96, 66561, 7600, 905, 50249, 6399 #### [facility] [place] [address] Shop Girl: Brandon Browning MD URIC ACIDon 07-04-2024 Urate [Mass/Vol] 8.5 mg/dL High 2.5-7.0 [facility] Comment on above: Result Comment: Ther apeutic target for gout patients: <6.0 mg/dL Performed By: #### 4 96, 71185, 7600, 905, 13274, 6399 #### [facility] [place] [address] Shop Girl: Brandon Browning MD VITAMIN D,25-OH,TOTAL,IAon 0 07-04-2024 VITAMIN D,25-OH,TOTAL,IA 24 ng/mL Low 30-100 [facility] Comment on above: Result Comment: Klarissa min D Status 25-OH Vitamin D: Deficiency: <20 ng/mL Insufficiency: 20 - 29 ng/mL Optimal: > or = 30 ng/mL For 25-OH Vitamin D testing on patients on D2-supplementation and patients for whom quantitation of D2 and D3 fractions is required, the QuestAssureD() 25-OH VIT D, (D2,D3), LC/MS/MS is recommended: order code 73955 (patients >2yrs). See Note 1 Note 1 For additional information, please refer to http://education.quietrevolution/faq/LMA347 (This link is being provided for informational/ educational purposes only.) Performed By: #### 4 96, 13128, 7600, 905, 96168, 6399 #### [facility] [address] [facility], [address] [place] [address] Shop Girl: Brandon Browning MD XR DEXA BONE DENSITYon 06-11 XR DEXA BONE DENSITY EXAMINATION: XR DEXA BONE DENSITY, 06/11/2021 9:23 AM EST HISTORY: Primary ovarian failure COMPARISON: 2017. TECHNIQUE: Dual-energy X-ray absorptiometry (DEXA) bone density study performed for the axial skeleton. FINDINGS: Bone mineral density of the lumbar spine L2-L4 measures 1.32 g/sq cm. T score 1.5. WHO classification: Normal. The lowest bone mineral density is in the left femoral neck measuring 0.749 g/sq cm. T score -2.1. WHO classification: Osteopenia. This is a 6.3% reduction from the prior exam, physiologic IMPRESSION: Physiologic reduction in bone mineral density. Osteopenia with moderate fracture risk Electronically authenticated by: JACINTO GUZMAN Date: 2021-06-11 10:11 Normal [facility] Complete Blood Count with Au to Diffon 06-02-2021 Basophils (Bld) [#/Vol] 0.03 10*3/uL Normal 0.00-0.20 [facility] Clerical Office Worker Comment on above: Performed By: #### U MEETA, CBCAD, VITD, ESR, CMP, LIPD #### [facility] [address] [place], [place] [id number] Basophils/100 WBC (Bld) 0.3 % Normal [facility] Clerical Office Worker Comment on above: Performed By: #### U MEETA, CBCAD, VITD, ESR, CMP, LIPD #### [facility] [address] [place], [place] [id number] Eosinophils (Bld) [#/Vol] 0.10 10*3/uL Normal 0.02-0.50 [facility] Specialist Comment on above: Performed By: #### U MEETA, CBCAD, VITD, ESR, CMP, LIPD #### [facility] [address] [place], [place] [id number] Eosinophils/100 WBC (Bld) 1.1 % Normal [facility] Specialist Comment on above: Performed By: #### U MEETA, CBCAD, VITD, ESR, CMP, LIPD #### [facility] [address], [place] [id number] Erythrocyte distribution width (RBC) [Ratio] 14.0 % Normal 11.0-15.0 [facility] Specialist Comment on above: Performed By: #### U MEETA, CBCAD, VITD, ESR, CMP, LIPD #### [facility] [address], [place] [id number] Hematocrit (Bld) [Volume fraction] 38.3 % Normal 35.0-47.0 [facility] Specialist Comment on above: Performed By: #### U MEETA, CBCAD, VITD, ESR, CMP, LIPD #### [facility] [address], [place] [id number] Hemoglobin (Bld) [Mass/Vol] 12.4 g/dL Normal 11.6-15.5 [facility] Specialist Comment on above: Performed By: #### U MEETA, CBCAD, VITD, ESR, CMP, LIPD #### [facility] [address], [place] [id number] Lymphocytes (Bld) [#/Vol] 2.3 10*3/uL Normal 0.9-3.9 [facility] Specialist Comment on above: Performed By: #### U MEETA, CBCAD, VITD, ESR, CMP, LIPD #### [facility] [address], [place] [id number] Lymphocytes/100 WBC (Bld) 24.0 % Normal [facility] Specialist Comment on above: Performed By: #### U MEETA, CBCAD, VITD, ESR, CMP, LIPD #### [facility] [address], [place] [id number] MCH (RBC) [Entitic mass] 28.4 pg Normal 27.0-33.0 [facility] Specialist Comment on above: Performed By: #### U MEETA, CBCAD, VITD, ESR, CMP, LIPD #### [facility] [address], [place] [id number] MCHC (RBC) [Mass/Vol] 32.4 g/dL Normal 32.0-36.0 [facility] Comment on above: Performed By: #### U MEETA, CBCAD, VITD, ESR, CMP, LIPD #### [facility] [address], [place] [id number] MCV (RBC) [Entitic vol] 88 fL Normal 80-100 [facility] Special[facility] Comment on above: Performed By: #### U MEETA, CBCAD, VITD, ESR, CMP, LIPD #### [facility] [address], [place] [id number] Monocytes (Bld) [#/Vol] 1.0 10*3/uL High 0.2-0.9 [facility] Comment on above: Performed By: #### U MEETA, CBCAD, VITD, ESR, CMP, LIPD #### [facility] [address], [place] [id number] Monocytes/100 WBC (Bld) 10.2 % Normal [facility] Comment on above: Performed By: #### U MEETA, CBCAD, VITD, ESR, CMP, LIPD #### [facility] [address], [place] [id number] Neutrophils (Bld) [#/Vol] 6.0 10*3/uL Normal 1.5-7.8 [facility] Comment on above: Performed By: #### U MEETA, CBCAD, VITD, ESR, CMP, LIPD #### [facility] [address], [place] [id number] Neutrophils/100 WBC (Bld) 64.0 % Normal [facility] Comment on above: Performed By: #### U MEETA, CBCAD, VITD, ESR, CMP, LIPD #### [facility] [address] [place], [place] [id number] Platelet mean volume (Bld) [Entitic vol] 11.00 fL Normal 7.50-12.50 [facility] Clerical Office Worker Comment on above: Performed By: #### U MEETA, CBCAD, VITD, ESR, CMP, LIPD #### [facility] [address], [place] [id number] Platelets (Bld) [#/Vol] 241 10*3/uL Normal 140-400 [facility] Clerical Office Worker Comment on above: Performed By: #### U MEETA, CBCAD, VITD, ESR, CMP, LIPD #### [facility] [address], [place] [id number] RBC (Bld) [#/Vol] 4.36 10*6/uL Normal 3.90-5.20 [facility] Clerical Office Worker Comment on above: Performed By: #### U MEETA, CBCAD, VITD, ESR, CMP, LIPD #### [facility] [address], [place] [id number] RDW-SD 44.6 fL Normal 37.0-50.0 [facility] Clerical Office Worker Comment on above: Performed By: #### U MEETA, CBCAD, VITD, ESR, CMP, LIPD #### [facility] [address], [place] [id number] WBC (Bld) [#/Vol] 9.4 10*3/uL Normal 3.8-11.0 Halina hernandez [place] Clerical Office Worker Comment on above: Performed By: #### U MEETA, CBCAD, VITD, ESR, CMP, LIPD #### [facility] [address], [place] [id number] Comprehensive Metabolic Pane kashmir 06-02-2021 Albumin [Mass/Vol] 4.4 g/dL Normal 3.6-5.1 Halina rn [place] Clerical Office Worker Comment on above: Performed By: #### U MEETA, CBCAD, VITD, ESR, CMP, LIPD #### [facility] [address], [place] [id number] Albumin/Globulin [Mass ratio] 2.3 {ratio} Normal 1.0-2.5 [facility] Clerical Office Worker Comment on above: Performed By: #### U MEETA, CBCAD, VITD, ESR, CMP, LIPD #### [facility] [address], [place] [id number] ALP [Catalytic activity/Vol] 122 U/L High 35-119 [facility] Specialist Comment on above: Performed By: #### U MEETA, CBCAD, VITD, ESR, CMP, LIPD #### [facility] [address], [place] [id number] ALT [Catalytic activity/Vol] 10 U/L Normal 6-33 [facility] Comment on above: Result Comment: 03/11 Female reference range changed. Performed By: #### U MEETA, CBCAD, VITD, ESR, CMP, LIPD #### [facility] [address], [place] [id number] Anion gap [Moles/Vol] 20 mmol/L Normal 12-20 [facility] Comment on above: Result Comment: Effe ctive 04/16/2019 reference range changed. Performed By: #### U MEETA, CBCAD, VITD, ESR, CMP, LIPD #### [facility] [address], [place] [id number] AST [Catalytic activity/Vol] 9 U/L Normal 9-34 [facility] Comment on above: Performed By: #### U MEETA, CBCAD, VITD, ESR, CMP, LIPD #### [facility] [address] [place], [place] [id number] Bilirubin [Mass/Vol] 0.75 mg/dL Normal 0.30-1.20 [facility] Comment on above: Performed By: #### U MEETA, CBCAD, VITD, ESR, CMP, LIPD #### [facility] [address], [place] [id number] BUN/CREA 22 Ratio Normal 6-22 [facility]ist Comment on above: Performed By: #### U MEETA, CBCAD, VITD, ESR, CMP, LIPD #### [facility] [address], [place] [id number] Calcium [Mass/Vol] 11.2 mg/dL High 8.6-10.2 [facility] Comment on above: Performed By: #### U MEETA, CBCAD, VITD, ESR, CMP, LIPD #### [facility] [address] [place], [place] [id number] Chloride [Moles/Vol] 103 mmol/L Normal 98-107 [facility] Comment on above: Performed By: #### U MEETA, CBCAD, VITD, ESR, CMP, LIPD #### [facility] [address] [place], [place] [id number] CO2 [Moles/Vol] 23 mmol/L Normal 20-31 [facility] Comment on above: Performed By: #### U MEETA, CBCAD, VITD, ESR, CMP, LIPD #### [facility] [address], [place] [id number] Creatinine [Mass/Vol] 1.8 mg/dL High 0.6-1.4 [facility] Comment on above: Performed By: #### U MEETA, CBCAD, VITD, ESR, CMP, LIPD #### [facility] [address], [place] [id number] eGFRAA 33 mL/min/1.73m2 Low >60 [facility] Comment on above: Performed By: #### U MEETA, CBCAD, VITD, ESR, CMP, LIPD #### [facility] [address] [place], [place] [id number] eGFRNAA 28 mL/min/1.73m2 Low >60 [facility] Comment on above: Performed By: #### U MEETA, CBCAD, VITD, ESR, CMP, LIPD #### [facility] [address] [place], [place] [id number] Globulin (S) [Mass/Vol] 1.9 g/dL Normal 1.9-3.7 [facility] Comment on above: Performed By: #### U MEETA, CBCAD, VITD, ESR, CMP, LIPD #### [facility] [address] [place], [place] [id number] Glucose [Mass/Vol] 110 mg/dL High 65-99 [facility] Comment on above: Result Comment: For FASTING Glucose --- ADA reference ranges: Normal 65-99 mg/dl Prediabetes 100-125 Diabetes >/= 126 Performed By: #### U MEETA, CBCAD, VITD, ESR, CMP, LIPD #### [facility] [address] [id number] Potassium [Moles/Vol] 5.0 mmol/L Normal 3.5-5.5 [facility] Clerical Office Worker Comment on above: Performed By: #### U MEETA, CBCAD, VITD, ESR, CMP, LIPD #### [facility] [address] [facility] [place] [id number] Protein [Mass/Vol] 6.3 g/dL Normal 6.1-8.1 Halina hernandez [place] Clerical Office Worker Comment on above: Performed By: #### U MEETA, CBCAD, VITD, ESR, CMP, LIPD #### [facility] [address] [place], [place] [id number] Sodium [Moles/Vol] 142 mmol/L Normal 135-146 [facility] Clerical Office Worker Comment on above: Performed By: #### U MEETA, CBCAD, VITD, ESR, CMP, LIPD #### [facility] [address] [id number] Urea nitrogen [Mass/Vol] 38 mg/dL High 7-25 [facility] Clerical Office Worker Comment on above: Performed By: #### U MEETA, CBCAD, VITD, ESR, CMP, LIPD #### [facility] [address] [id number] Lipid Panelon 06-02-2021 Cholesterol [Mass/Vol] 271 mg/dL High 125-200 [facility] Clerical Office Worker Comment on above: Result Comment: Low risk < 200mg/dL Borderline risk 201-239 mg/dl High risk > or equal to 240 Performed By: #### U MEETA, CBCAD, VITD, ESR, CMP, LIPD #### [facility] [address] [id number] Cholesterol in HDL [Mass/Vol] 50 mg/dL Normal >40 [facility] Clerical Office Worker Comment on above: Result Comment: High Cardiovascular Risk HDL <40 mg/dL Low Cardiovascular Risk HDL > or equal to 60 mg/dl Performed By: #### U MEETA, CBCAD, VITD, ESR, CMP, LIPD #### [facility] [address] [place] [id number] Cholesterol in LDL [Mass/Vol] 165 mg/dL Normal [place] Clerical Office Worker Comment on above: Result Comment: LDL ATP III CLASSIFICATION LDL less than 100 mg/dl Optimal LDL 100-129 mg/dl Near or above optimal LDL 130-159 Borderline high LDL 160-189 High LDL greater than 189 mg/dl Very High Performed By: #### U MEETA, CBCAD, VITD, ESR, CMP, LIPD #### [facility] [address], [place] [id number] Cholesterol in VLDL [Mass/Vol] 56 mg/dL Normal [facility] Specialist Comment on above: Performed By: #### U MEETA, CBCAD, VITD, ESR, CMP, LIPD #### [facility] [address] [place], [place] [id number] Cholesterol.total/C holesterol in HDL [Mass ratio] 5 {ratio} Normal [facility] Specialist Comment on above: Performed By: #### U MEETA, CBCAD, VITD, ESR, CMP, LIPD #### [facility] [address], [place] [id number] Triglyceride [Mass/Vol] 279 mg/dL High 30-150 [facility] Clerical Office Worker Comment on above: Result Comment: TRIG ATPIII CLASSIFICATIONS TRIG less than 150 mg/dl Normal TRIG 150-199 mg/dl Borderline High TRIG 200-500 mg/dl High TRIG greather than 500 mg/dl Very High Performed By: #### U MEETA, CBCAD, VITD, ESR, CMP, LIPD #### [facility] [address], [place] [id number] RBC Sedimentation Rateon ESR (Bld) [Velocity] 31.00 mm/h High 0.00-30.00 [facility] Specialist Comment on above: Performed By: #### U MEETA, CBCAD, VITD, ESR, CMP, LIPD #### [facility] [address] [place], [place] [id number] US KINSEY DOP LEG RTon 06-02-19 US KINSEY DOP LEG RT EXAMINATION: US KINSEY DOP LEG RT HISTORY: Disorder of soft tissue COMPARISON: No relevant comparison available. FINDINGS: REGION: Right lower extremity THROMBI: None. COMPRESSIBILITY: Normal compressibility. FLOW: Normal waveform and antegrade flow between 5 and 20 cm/s. OTHER: Short segment of partially compressible small saphenous vein. IMPRESSION: 1. No deep vein thrombus within the right lower extremity. 2. Short segment of the superficial small saphenous vein is partially compressible suggesting nonocclusive chronic clot versus superficial thrombophlebitis. Electronically authenticated by: CHLOE HESTER Date: 2021-06-02 15:05 Normal [facility] Uric Acidon 06-02-2021 URIC 10.2 mg/dL High 2.5-7.0 [facility] Clerical Office Worker Comment on above: Result Comment: Refe rence range change 02/25/2017. Prior reference range F 2.4-5.7mg/dL. M 3.4-7.0 mg/dL. Performed By: #### U MEETA, CBCAD, VITD, ESR, CMP, LIPD #### [facility] [address], [place] [id number] Vitamin D 25-OHon 06-02-2021 VIT D 25 OH 14 ng/ml Low >29 [facility] Clerical Office Worker Comment on above: Result Comment: Klarissa min D Status Deficiency <20 ng/mL Insufficiency 20-29 ng/mL Optimal 30-100 ng/mL Possible Toxicity >=150 ng/mL Performed By: #### U MEETA, CBCAD, VITD, ESR, CMP, LIPD #### [facility] [address] [place], [place] [id number] HSV Culture and Typingon HSV Culture and Typing Normal . [facility] Comment on above: Order Comment: SOURC E OF SPECIMEN: UTM SWAB Result Comment: Nega tive No Herpes simplex virus isolated. Performed at: - [facility] [id number] Perforator Typist: Vikas Cleveland PhD, Phone: [phone] PERFORMED BY: [facility] [address] [place] [address] PATHOLOGIST INTERACTIVE WEB DEVELOPER PETRONA MAYNARD M.D. Performed By: #### H SV CULTwTYPING #### [facility] , Superficial Wound Cultureon 02-27-2021 Superficial Wound Culture ORGANISM: Staphylococcus aureus (O:STAAUR) Quantity of Growth Heavy Growth Aerobic ROMAN Charge (PC45) - SUSCEPTIBILITY ORGANISM: O:STAAUR ANTIBIOTIC INTERPRETATION ROMAN Amoxacillin/K Clavulanate S <4/2 Ampicillin POOJA 8 Ampicillin/Sulbactam S <8/4 Azithromycin S <2 Cefazolin S <8 Ceftaroline S <0.5 Ceftriaxone S <8 Ciprofloxacin S <1 Clindamycin S <0.5 Daptomycin S <1 Erythromycin S <0.25 Levofloxacin S <1 Linezolid S 4 Meropenem S <4 Oxacillin S 0.5 Penicillin POOJA >8 Piperacillin/Tazobactam S <4 Rifampin S <1 Tetracycline S <4 Trimethoprim/Sulfamethox azole S <0.5/9.5 Vancomycin S 1 S = SUSCEPTIBLE I = INTERMEDIATE R = RESISTANT BLANK = DATA NOT AVAILABLE, OR DRUG NOT ADVISABLE OR TESTED R* = RESISTANCE DUE TO EXTENDED SPECTRUM BETA-LACTAMASES ESBL = EXTENDED SPECTRUM BETA-LACTAMASE TFG = THYMIDINE-DEPENDENT STRAIN POOJA = BETA-LACTAMASE POSITIVE IB = INDUCIBLE BETA-LACTAMASE. APPEARS IN PLACE OF 'S' WITH SPECIES KNOWN TO POSSESS INDUCIBLE BETA-LACTAMASES. POTENTIALLY THEY MAY BECOME RESISTANT TO ALL B-LACTAM DRUGS. PERFORMED BY: [place] [address] PATHOLOGIST INTERACTIVE WEB DEVELOPER PETRONA MAYNARD M.D. [facility] Comment on above: Performed By: #### C USUP #### [facility] [address] [place] [address] Superficial Wound Cultureon 07-18-2020 Superficial Wound Culture BACTERIA IDENTIFIED IN SKIN BY AEROBE CULTURE; RIGHT INFERIOR MEDIAL MALAR CHEEK AND FACE Light Normal Skin Janie 2 Days PERFORMED BY: [place] [address] PATHOLOGIST INTERACTIVE WEB DEVELOPER PETRONA MAYNARD M.D. [facility] Comment on above: Performed By: #### C USUP #### [address] ECHOCARDIO M/2D COMPLETEon 0 07-01-2020 ECHOCARDIO M/2D COMPLETE Patient: ESPERANZA TELLEZ V. Exam Date: 07/01/2020 : 1935 Gender:F Ordering : DR PHU ANAND M.D. Admission #: [id number] Family : Order #: [id number] CLICK HERE TO VIEW EXAM ECHOCARDIOGRAM REPORT PROCEDURE: CARDIO PULMONARY ECHOCARDIO M/2D COMP INDICATIONS: Edema, HTN, CKD COMPARISON: None. DESCRIPTION: COMPLETE ECHOCARDIOGRAM Real-time transthoracic echocardiography with 2D, M-mode, spectral and color flow Doppler performed. QUALITY: Technical quality was good. LEFT VENTRICLE: Normal chamber size. Borderline left ventricular hypertrophy. LV EF: Normal left ventricular ejection fraction, (>55%). DIASTOLIC: Normal diastolic function. ATRIAL SEPTUM: LEFT ATRIUM: Normal chamber size. RIGHT ATRIUM: Normal chamber size. RIGHT VENTRICLE: Normal chamber size. Normal systolic function. TRICUSPID VALVE: Normal mobility and thickness. No stenosis with trace regurgitation. No evidence of pulmonary hypertension.RVSP 22 mmHg. MITRAL VALVE: Mildly thickened with normal mobility. No evidence of mitral valve stenosis. There is no mitral annular calcification. Trace mitral regurgitation. AORTIC VALVE: Normal trileaflet appearance. Normal leaflet mobility. No evidence of aortic valve stenosis. No aortic regurgitation. AORTIC ROOT: Normal diameter and appearance. PULMONIC VALVE: Normal thickness and mobility. No stenosis. Trace regurgitation. PERICARDIUM: No evidence of pericardial effusion. IVC: PLEURA: CONCLUSION: 1. Normal ventricular function. 2. No significant valvular dysfunction. 3. Normal right sided pressures. Adult Echocardiography Procedure Report Left Ventricle LVEDD (3.7 - 5.6 cm): 4.15 cm LVESD (2.2 - 4.0 cm): 2.72 cm LVIVS thickness (0.6 - 1.2 cm): 1.11 cm LVPW thickness (0.5 - 1.0 cm): 9.50 mm e': 3.84 cm/s E - e': 15.40 LVOT Area (cm2): 3.80 cm2 LVOT Diameter 2.20 cm Left Ventricular Ejection Fraction: 64 % Left Atrium Left Atrium Systolic Dimension: 3.90 cm Left Atrium Systolic Area(A4C): 14.20 cm2 Left Atrium Systolic Volume(A4C): 39346 mm3 Mitral Valve MV E to A Ratio: 0.80 Mitral Valve A-Wave Peak Velocity: 78.00 cm/s Mitral Valve E-Wave Peak Velocity: 59.20 cm/s Deceleration Time: 251 ms Right Ventricle Aorta AO Root Diam: 3.20 cm Aortic Valve AoV Area (Peak Maldonado): 2.88 cm2 Peak Velocity(Antegrade Flow): 97.00 cm/s Peak Gradient(Antegrade Flow): 4 mm[Hg] Tricuspid Valve Pulmonic Valve Peak Velocity: 109.00 cm/s Peak Gradient: 5 mm[Hg] Right Atrium Dictated by: Hiram Sexton M.D. on 07/01/2020 at 19:14 Approved by: Hiram Sexton M.D. on 07/01/2020 at 19:17 [facility] Vital Signs Date Time Vital Sign Value Performing Clinician Facility 10-08-2024 14:56-0400 Body height 165.1 cm Nancy Hemmer PA Work Phone: [facility] 10-08-2024 14:56-0400 Body mass index (BMI) [Ratio] 36.28 kg/m2 Nancy Hemmer PA Work Phone: [facility] 10-08-2024 14:56-0400 Body weight 98.88 kg Nancy Hemmer PA Work Phone: [facility] 10-08-2024 14:56-0400 Diastolic blood pressure 84 mm[Hg] Nancy Hemmer PA Work Phone: [facility] 10-08-2024 14:56-0400 Heart rate 67 /min Nancy Hemmer PA Work Phone: [facility] 10-08-2024 14:56-0400 Respiratory rate 16 /min Nancy Hemmer PA Work Phone: [facility] 10-08-2024 14:56-0400 SaO2% (BldA) [Mass fraction] 97 % Nancy Hemmer PA Work Phone: [facility] 10-08-2024 14:56-0400 Systolic blood pressure 136 mm[Hg] Nancy Hemmer PA Work Phone: [facility] 08-06-2024 14:57-0400 Body height 165.1 cm Nancy Hemmer PA Work Phone: [facility] 08-06-2024 14:57-0400 Body mass index (BMI) [Ratio] 35.71 kg/m2 Nancy Hemmer PA Work Phone: [facility] 08-06-2024 14:57-0400 Body weight 97.34 kg Nancy Hemmer PA Work Phone: [facility] 08-06-2024 14:57-0400 Diastolic blood pressure 76 mm[Hg] Nancy Hemmer PA Work Phone: [facility] 08-06-2024 14:57-0400 Heart rate 71 /min Nancy Hemmer PA Work Phone: [facility] 08-06-2024 14:57-0400 Respiratory rate 16 /min Nancy Hemmer PA Work Phone: [facility] 08-06-2024 14:57-0400 SaO2% (BldA) [Mass fraction] 96 % Nancy Hemmer PA Work Phone: [facility] 08-06-2024 14:57-0400 Systolic blood pressure 118 mm[Hg] Nancy Hemmer PA Work Phone: [facility] 07-05-2024 14:58-0400 Body height 165.1 cm Nancy Hemmer PA Work Phone: [facility] 07-05-2024 14:58-0400 Body mass index (BMI) [Ratio] 36.58 kg/m2 Nancy Hemmer PA Work Phone: [facility] 07-05-2024 14:58-0400 Body weight 99.7 kg Nancy Hemmer PA Work Phone: [facility] 07-05-2024 14:58-0400 Diastolic blood pressure 72 mm[Hg] Nancy Hemmer PA Work Phone: [facility] 07-05-2024 14:58-0400 Heart rate 75 /min Nancy Hemmer PA Work Phone: [facility] 03-27-2025 14:58-0400 Respiratory rate 16 /min Nancy Hemmer PA Work Phone: [facility] 07-05-2024 14:58-0400 SaO2% (BldA) [Mass fraction] 96 % Nancy Hemmer PA Work Phone: [facility] 07-05-2024 14:58-0400 Systolic blood pressure 138 mm[Hg] Nancy Hemmer PA Work Phone: [facility] 03-07-2024 15:56-0500 Body mass index (BMI) [Ratio] 34.95 kg/m2 Nancy Hemmer PA Work Phone: [facility] 03-07-2024 15:56-0500 Body weight 95.25 kg Nancy Hemmer PA Work Phone: [facility] 03-07-2024 15:56-0500 Diastolic blood pressure 65 mm[Hg] Nancy Hemmer PA Work Phone: [facility] 03-07-2024 15:56-0500 Heart rate 88 /min Nancy Hemmer PA Work Phone: [facility] 03-07-2024 15:56-0500 Respiratory rate 17 /min Nancy Hemmer PA Work Phone: [facility] 03-07-2024 15:56-0500 SaO2% (BldA) [Mass fraction] 98 % Nancy Hemmer PA Work Phone: [facility] 03-07-2024 15:56-0500 Systolic blood pressure 130 mm[Hg] Nancy Hemmer PA Work Phone: [facility] 01-10-2024 13:53-0400 Body height 165.1 cm Nancy Hemmer PA Work Phone: [facility] 01-10-2024 13:53-0400 Body mass index (BMI) [Ratio] 36.04 kg/m2 Nancy Hemmer PA Work Phone: [facility] 01-10-2024 13:53-0400 Body weight 98.25 kg Nancy Hemmer PA Work Phone: [facility] [employer] 01-10-2024 13:53-0400 Diastolic blood pressure 60 mm[Hg] Nancy Hemmer PA Work Phone: [facility] [employer] 01-10-2024 13:53-0400 Heart rate 76 /min Nancy Hemmer PA Work Phone: [facility] [employer] 01-10-2024 13:53-0400 Respiratory rate 16 /min Nancy Hemmer PA Work Phone: [facility] [employer] 01-10-2024 13:53-0400 SaO2% (BldA) [Mass fraction] 98 % Nancy Hemmer PA Work Phone: [facility] [employer] 01-10-2024 13:53-0400 Systolic blood pressure 110 mm[Hg] Nancy Hemmer PA Work Phone: [facility] [employer] 09-02-2021 18:40-0400 Body height 168.91 cm Flor Garciamond Other [email or web address] Other 09-02-2021 18:40-0400 Body mass index (BMI) [Ratio] 33.7 kg/m2 Flor Nicole Other [email or web address] Other 09-02-2021 18:40-0400 Body temperature 97.6 [degF] Flor Garciamond Other [email or web address] Other 09-02-2021 18:40-0400 Body weight 96.16 kg Flor Garciamond Other [email or web address] Other 09-02-2021 18:40-0400 Respiratory rate 14 /min Flor Nicole Other [email or web address] Other 09-02-2021 18:40-0400 SaO2% (BldA) [Mass fraction] 98 % Flor Nicole Other [email or web address] Other Encounters Encounter Date Encounter Type Care Provider Facility Start: 10-08-2024 End: 10-08-2024 Office outpatient visit 15 minutes Nancy Mueller PA Work Phone: [facility] Comment on above: Type 2 diabetes fatou itus with other specified complication, without long-term current use of insulin (HCC) (Primary Dx); Essential hypertension, benign ; Morbid obesity (CMS-HCC) Start: 10-08-2024 End: 10-08-2024 ambulatory NANCY MUELLER Not Available Start: 10-08-2024 End: 10-08-2024 Bamboo flowsheet Nancy Mueller PA Work Phone: [facility] Start: 10-08-2024 End: 10-08-2024 Bamboo flowsheet Nancy Mueller PA Work Phone: [facility] Start: 08-06-2024 End: 08-06-2024 Office outpatient visit 25 minutes Nancy Mueller PA Work Phone: [facility] Comment on above: Type 2 diabetes fatou itus with other specified complication, without long-term current use of insulin (Primary Dx); Essential hypertension, benign (CMS/HCC); Morbid obesity (CMS/HCC); BMI 35.0-35.9,adult Start: 08-06-2024 End: 08-06-2024 ambulatory NANCY MUELLER Not Available Start: 08-06-2024 End: 08-06-2024 Bamboo flowsheet Nancy Mueller PA Work Phone: [facility] Start: 08-06-2024 End: 08-06-2024 Bamboo flowsheet Nancy Mariemer PA Work Phone: [facility] Start: 07-05-2024 End: 07-05-2024 Office outpatient visit 25 minutes Nancy Mueller PA Work Phone: [facility] Comment on above: Type 2 diabetes fatou itus with other specified complication, without long-term current use of insulin (CMS/HCC) (Primary Dx); Mixed hyperlipidemia (CMS/HCC); Idiopathic chronic gout of multiple sites without tophus; Hypercalcemia; Vitamin D deficiency; Chronic kidney disease, stage 3b (HCC) ([facility]/HCC) Start: 07-05-2024 End: 07-05-2024 ambulatory NANCY MUELLER Not Available Start: 07-05-2024 End: 07-05-2024 Bamboo flowsheet Nancyclaudio Mariemer PA Work Phone: [facility] Start: 07-05-2024 End: 07-05-2024 Bamboo flowsheet Nancy Mariemer PA Work Phone: [facility] Start: 07-03-2024 End: 07-04-2024 Telephone encounter Nancy Mueller PA Work Phone: [facility] Start: 07-02-2024 End: 07-02-2024 ambulatory NANCY MUELLER Not Available Start: 03-07-2024 End: 03-07-2024 Office outpatient visit 15 minutes Nancy Mueller PA Work Phone: [facility] Comment on above: Left leg pain (Prima ry Dx) Start: 03-07-2024 End: 03-07-2024 ambulatory NANCY MUELLER Not Available Start: 03-07-2024 End: 03-07-2024 Bamboo flowsheet Nancy Mueller PA Work Phone: [facility] Start: 03-07-2024 End: 03-07-2024 Bamboo flowsheet Nancy Mueller PA Work Phone: [facility] Start: 01-10-2024 End: 01-10-2024 Bamboo flowsheet Nancy Mariemer PA Work Phone: [facility] Start: 01-10-2024 End: 01-10-2024 Bamboo flowsheet Nancy Rangel Hemmer PA Work Phone: [facility] Start: 01-10-2024 End: 01-10-2024 Patient encounter procedure Nancy Mueller PA Work Phone: [facility] Comment on above: Medicare annual well ness visit, subsequent (Primary Dx); Essential hypertension ([facility]); ACP (advance care planning); Elevated uric acid in blood; Degeneration of intervertebral disc of lumbar region with discogenic back pain; Peripheral polyneuropathy; Atelectasis; 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, stage 1 through stage 4 or unspecified chronic kidney disease, without heart failure ([facility]/HCC); Gastro-esophageal reflux disease without esophagitis; Localized osteoporosis of [place] ([facility]); Morbid obesity ([facility]); Vitamin D deficiency; Actinic keratosis; Elevated alkaline phosphatase level; Elevated myoglobin level; Estrogen deficiency; Hypercalcemia; Idiopathic chronic gout of multiple sites without tophus; Menopausal and postmenopausal disorder; Migraine without aura, not refractory ([facility]); Other rosacea; Pure hypercholesterolemia ([facility]); Chronic kidney disease, stage 4 (severe) ([facility]); BMI 36.0-36.9,adult Start: 01-10-2024 End: 01-10-2024 ambulatory NANCY MUELLER Not Available Start: 01-04-2024 End: 01-11-2024 Telephone encounter Phu Anand MD Work Phone: [facility] Start: 09-02-2021 End: 09-02-2021 ambulatory Flor Rivera Other [email or web address] Other Start: 09-02-2021 Office outpatient vi sit 15 minutes Flor Rivera [facility] [place] Start: 06-11-2021 End: 06-12-[address] PHU ANAND Facility:[facility] Start: 06-02-2021 End: 06-03-[address] PHU ANAND Facility:[facility] Start: 10-21-2020 End: 10-22-[address] PHU ANAND Facility:[facility] Start: 07-01-2020 End: 07-02-[address] PHU ANAND Facility:[facility] Procedures Date Procedure Procedure Detail Performing Clinician Start: 10-08-2024 Hemoglobin glycosyla maikel a1c Nancy Mueller PA Work Phone: Plan of Treatment Date Care Activity Detail Author Start: 01-09-2025 Medicare Annual Wellness (AWV) Medicare Annual Wellness (AWV) [facility] Start: 01-09-2025 Pneumococcal Vaccine: 65+ Years (2 of 2 - PCV) Pneumococcal Vaccine: 65+ Years (2 of 2 - PCV) [facility] Comment on above: Postponed from 03/14/2020 (Patient Refus ed) Start: 01-08-2025 Hemoglobin A1c measurement Diabetes: Hemoglobin A1C [facility] Start: 12-10-2024 Influenza vaccination Influenza Vaccine (Season Ended) [facility] Start: 10-08-2024 End: 10-08-2024 Patient encounter procedure [facility] Comment on above: Arrived Start: 10-08-2024 Influenza vaccination Influenza Vaccine (#1) [facility] Comment on above: Postponed from 12/11/2023 (Patient Refus ed) Start: 10-02-2024 Hemoglobin A1c measurement Diabetes: Hemoglobin A1C [facility] Start: 08-06-2024 End: 08-06-2024 Patient encounter procedure [facility] Comment on above: Arrived Start: 08-06-2024 End: 08-06-2025 Microalbumin/Creatinin e panel in random Urine Microalbumin / creatinine, urine ratio Lab Routine Type 2 diabetes mellitus with other specified complication, without long-term current use of insulin Expected: 08/06/2024 (Approximate), Expires: 08/06/2025 [facility] Work Phone: Comment on above: Expected: 08/06/2024 (Approximate), Expi res: 08/06/2025 Start: 07-05-2024 End: 07-05-2024 Patient encounter procedure [facility] Comment on above: Arrived Start: 03-07-2024 End: 03-07-2024 Patient encounter procedure 03/07/2024 4:00 PM EST Office Visit [facility] [address] [place] [address] Nancy Mueller PA [address] [place] [address] Arrived [facility] Comment on above: Arrived Start: 01-10-2024 End: 01-09-2025 25-hydroxyvitamin D3 [Mass/volume] in Serum or Plasma Vitamin D 25 hydroxy Total Lab Routine Medicare annual wellness visit, subsequent Vitamin D deficiency Expected: 01/10/2024 (Approximate), Expires: 01/09/2025 [facility] Comment on above: Expected: 01/10/2024 (Approximate), Expi res: 01/09/2025 Start: 01-10-2024 End: 01-09-2025 CBC W Auto Differential panel - Blood CBC and differential Lab Routine Medicare annual wellness visit, subsequent Essential hypertension (CMS/HCC) Chronic kidney disease, stage 4 (severe) (CMS/HCC) Expected: 01/10/2024 (Approximate), Expires: 01/09/2025 [facility] Work Phone: Comment on above: Expected: 01/10/2024 (Approximate), Expi res: 01/09/2025 Start: 01-10-2024 End: 01-09-2025 Comprehensive metabolic 2000 panel - Serum or Plasma Comprehensive metabolic panel Lab Routine Medicare annual wellness visit, subsequent Essential hypertension (CMS/HCC) Elevated alkaline phosphatase level Hypercalcemia Chronic kidney disease, stage 4 (severe) (CMS/HCC) Expected: 01/10/2024 (Approximate), Expires: 01/09/2025 [facility] Comment on above: Expected: 01/10/2024 (Approximate), Expi res: 01/09/2025 Start: 01-10-2024 End: 01-09-2025 Lipid 1996 panel - Serum or Plasma Lipid panel Lab Routine Medicare annual wellness visit, subsequent Essential hypertension (CMS/HCC) Pure hypercholesterolemia (CMS/HCC) Expected: 01/10/2024 (Approximate), Expires: 01/09/2025 [facility] Comment on above: Expected: 01/10/2024 (Approximate), Expi res: 01/09/2025 Start: 01-10-2024 End: 01-10-2024 Patient encounter procedure 01/10/2024 2:00 PM EDT Office Visit [facility] [address] [facility] [address] [place] [address] Nancy Mueller PA [address] [facility] [address] [place] [address] Arrived [facility] Comment on above: Arrived Start: 01-10-2024 End: 10-01-2025 Urate [Mass/volume] in Serum or Plasma Uric acid Lab Routine Medicare annual wellness visit, subsequent Elevated uric acid in blood Idiopathic chronic gout of multiple sites without tophus Expected: 01/10/2024 (Approximate), Expires: 01/09/2025 [facility] Comment on above: Expected: 01/10/2024 (Approximate), Expi res: 01/09/2025 Start: 12-11-2023 Influenza vaccination Influenza Vaccine (#1) [facility] Start: 03-14-2020 Pneumococcal Vaccine: 65+ Years (2 of 2 - PCV) Pneumococcal Vaccine: 65+ Years (2 of 2 - PCV) [facility] Start: 08-19-1955 Urine screening for protein Diabetes: Urine Protein Screening [facility] Start: 1945 Glaucoma screening Diabetes: Retinopathy Screening [facility] Immunizations Immunization Date Immunization Notes Care Provider Fa [facility] 01-29-2020 influenza, high dose seasonal, preservative-free Nancy Hemelizabeth PA Work Phone: [facility] 01-29-2020 influenza virus vacc ine, unspecified formulation Nancy Hemmer PA Work Phone: [facility] 03-14-2019 pneumococcal polysaccharide vaccine, 23 valent Nancy Hemelizabeth PA Work Phone: [facility] 02-07-2019 influenza, high dose seasonal, preservative-free Nancy Hemmer PA Work Phone: [facility] 10-03-2013 tetanus toxoid, redu sada diphtheria toxoid, and acellular pertussis vaccine, adsorbed Nancy Hemmer PA Work Phone: [facility] 01-20-2003 seasonal influenza, intradermal, preservative free Nancy Hemmer PA Work Phone: [facility] Payers Date Payer Category Payer Private Health Insurance KENDY espitia [id number] 2022 Unknown AARP AARP [id number] 2022-Present [address] [place] [address] [id number] 2001 Medicare [id number] 1959 Medicare [id number] 1959 Unknown [id number] 1936 Unknown [id number] 1936 Unknown [id number] 1936 Unknown [id number] 1936 Unknown [id number] 1936 Unknown [id number] 1936 Unknown [id number] 1936 Unknown [id number] 1936 Unknown [id number] 1936 Unknown [id number] 1936 Unknown [id number] Social History Date Type Detail Facility Start: 12-08-2022 End: 04-06-2024 Sex Assigned At [facility] [employer] Other Start: 12-06-2022 Tobacco smoking stat [facility] Never smoked tobacco [facility] Start: 12-06-2022 Tobacco use and exposure Smokeless tobacco non-user [facility] Start: 12-08-2022 End: 10-08-2024 Alcoholic beverage intake Lifetime non-drinker (finding) [facility] Start: 12-08-2022 End: 04-06-2024 History of Social function [facility] Start: 1935 Sex assigned at Not on file [facility] How often do you nee d to have someone help you when you read instructions, pamphlets, or other written material from your doctor or pharmacy [SILS] Rarely [facility] Work Phone: Within the last year , have you been afraid of your partner or ex-partner? No [facility] Are you now , , , , never or living with a partner? [facility] How often to you hav e a drink containing alcohol? Never [facility] Do you feel stress - tense, restless, nervous, or anxious, or unable to sleep at night because your mind is troubled all the time - these days [OSQ] Not at all [facility] (I/We) worried wheth er (my/our) food would run out before (I/we) got money to buy more. Never true [facility] How often do you nee d to have someone help you when you read instructions, pamphlets, or other written material from your doctor or pharmacy [SILS] Rarely [facility] Work Phone: Medical Equipment Procedure Code Equipment Code Equipment Origin al Text Equipment Identifier Dates 1 each by In Vit ro route Daily [id number] Start: 07-05-2024 1 each Daily [id number] Start: 07-05-2024 Functional Status Date Assessment Result Facility 10-08-2024 Patient Health Quest ionnaire 2 item (PHQ-2) [Reported] [facility] 08-06-2024 Patient Health Quest ionnaire 2 item (PHQ-2) [Reported] [facility] Clinical Notes 10-21-2020 to 10-08-2024 CARLOS Howe - 10/08/2024 3:00 PM CARLOS Chaves - 08/06/2024 3:00 PM CARLOS Chaves - 07/05/2024 3:00 PM EDTTelephone Encounter - Serene Ortez - 07/04/2024 9:16 AM EDT Note Date & Type Note Facility 10-08-2024 History of Presen t illness Narrative Images from the original note were not included. Subjective Patient ID: Esperanza Tellez is a 89 y.o. female who presents for diabetes. Esperanza is present today for follow up diabetes. Denies foot ulcers, hypoglycemia, tingling/numbness in extremities. Does check BS's at home every other day and running on average 125. Not currently on any medications for diabetes. States has had no candy since her last appointment. Over the past 2 weeks, how often have you been bothered by any of the following problems? Little interest or pleasure in doing things: Not at all Feeling down, depressed, or hopeless: Not at all Patient Health Questionnaire-2 Score: 0 Current Outpatient Medications on File Prior to Visit Medication Sig Dispense Refill allopurinol (Zyloprim) 100 MG tablet Take 1 tablet (100 mg) by mouth every other day 45 tablet 3 carvedilol (Coreg) 25 MG tablet Take 1 tablet (25 mg) by mouth in the morning and 1 tablet (25 mg) in the evening. Take with meals. Take with food.. 180 tablet 3 cholecalciferol (Vitamin D-3) 50 MCG (1999 UT) capsule Take 1 capsule (50 mcg) by mouth Daily 100 capsule 3 Glucose Blood (Blood Glucose Test) strip 1 each by In Vitro route Daily 100 strip 3 Lancets 30G misc 1 each Daily 100 each 3 triamcinolone (Kenalog) 0.025 % cream Apply topically 2 (two) times a day 30 g 2 triamterene-hydrochlorothiazide (Maxzide-25) 37.5-25 MG tablet Take 1 tablet by mouth in the morning. 100 tablet 3 [DISCONTINUED] Blood Glucose Monitoring Suppl (Blood Glucose Monitor System) w/Device kit 1 each Daily 1 kit 0 No current facility-administered medications on file prior to visit. I have reviewed and reconciled the history and medication list with the patient today. Allergies Allergen Reactions Cephalexin Anaphylaxis Social History Tobacco Use Smoking status: Never Smokeless tobacco: Never Vaping Use Vaping status: Never Used Substance Use Topics Alcohol use: Never Drug use: Never No family history on file. 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 Respiratory: Negative for cough, shortness of breath and wheezing. Cardiovascular: Negative for chest pain, palpitations and leg swelling. Gastrointestinal: Negative for abdominal pain, constipation, diarrhea, nausea and vomiting. Skin: Negative for rash. Objective Physical Exam Constitutional: General: She is not in acute distress. Appearance: She is well-developed. She is obese. HENT: Head: Normocephalic and atraumatic. Eyes: General: No scleral icterus. Conjunctiva/sclera: Conjunctivae normal. Cardiovascular: Rate and Rhythm: Normal rate and regular rhythm. Heart sounds: Normal heart sounds. No murmur heard. Pulmonary: Effort: Pulmonary effort is normal. No respiratory distress. Breath sounds: Normal breath sounds. No wheezing, rhonchi or rales. Skin: General: Skin is warm and dry. Neurological: General: No focal deficit present. Mental Status: She is alert and oriented to person, place, and time. Gait: Gait abnormal. Psychiatric: Mood and Affect: Mood normal. Behavior: Behavior normal. Office Visit on 10/08/2024 Component Date Value Ref Range Status Hemoglobin A1C 10/08/2024 6.3 Final Assessment/Plan Diagnoses and all orders for this visit: Type 2 diabetes mellitus with other specified complication, without long-term current use of insulin (HCC) - POCT Glycated hemoglobin, total Advised pt that her HgbA1c has improved from 7.1 to 6.3. She is doing great with improving her diet. Encouraged her to continue to limit simple sugars. Will recheck HgbA1c at her follow up. She can go down to twice a week checking her glucose. Urine sample was obtained for Microalbumin send out today. Essential hypertension, benign Patient's blood pressure is currently stable. Continue with current medications and I will continue to monitor. Goal BP remains less than 130/80. Morbid obesity Encouraged portion control, decrease simple sugars and carbohydrates, gradually increase activity level. Aim for gradual steady weight loss. Follow up in about 14 weeks (around 01/14/2025) for Medicare Wellness Visit. documented in this encounter [facility] 08-06-2024 History of Presen t illness Narrative Images from the original note were not included. Subjective Patient ID: Esperanza Tellez is a 88 y.o. female who presents for diabetes. Esperanza is present today for follow up diabetes. Denies foot ulcers, hypoglycemia, tingling/numbness in extremities. She was diagnosed with diabetes on 07/05/24 with an A1C of 7.1, but she did not want to go on any medication. She wanted to try lifestyle changes first and was advised to check her BS's at home, which she has been and they are running between 108 - 155. She has cut most of her sugar intake out of her diet. She has been trying to eat fruit instead of candy bars. States had one episode of lightheadedness, queasiness, after eating a meal. Had to sit for a while and drank some water and started to feel better. Current Outpatient Medications on File Prior to Visit Medication Sig Dispense Refill allopurinol (Zyloprim) 100 MG tablet Take 1 tablet (100 mg) by mouth every other day 45 tablet 3 Blood Glucose Monitoring Suppl (Blood Glucose Monitor System) w/Device kit 1 each Daily 1 kit 0 carvedilol (Coreg) 25 MG tablet Take 1 tablet (25 mg) by mouth in the morning and 1 tablet (25 mg) in the evening. Take with meals. Take with food.. 180 tablet 3 cholecalciferol (Vitamin D-3) 50 MCG (1999) capsule Take 1 capsule (50 mcg) by mouth Daily 100 capsule 3 Glucose Blood (Blood Glucose Test) strip 1 each by In Vitro route Daily 100 strip 3 Lancets 30G misc 1 each Daily 100 each 3 triamcinolone (Kenalog) 0.025 % cream Apply topically 2 (two) times a day 30 g 2 triamterene-hydrochlorothiazide (Maxzide-25) 37.5-25 MG tablet Take 1 tablet by mouth in the morning. 100 tablet 3 No current facility-administered medications on file prior to visit. I have reviewed and reconciled the history and medication list with the patient today. Allergies Allergen Reactions Cephalexin Anaphylaxis Social History Tobacco Use Smoking status: Never Smokeless tobacco: Never Vaping Use Vaping status: Never Used Substance Use Topics Alcohol use: Never Drug use: Never No family history on file. 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 Respiratory: Negative for cough, shortness of breath and wheezing. Cardiovascular: Negative for chest pain, palpitations and leg swelling. Gastrointestinal: Negative for abdominal pain, constipation, diarrhea, nausea and vomiting. Skin: Negative for rash. Objective Physical Exam Constitutional: General: She is not in acute distress. Appearance: She is well-developed. She is obese. HENT: Head: Normocephalic and atraumatic. Eyes: General: No scleral icterus. Conjunctiva/sclera: Conjunctivae normal. Cardiovascular: Rate and Rhythm: Normal rate and regular rhythm. Heart sounds: Normal heart sounds. No murmur heard. Pulmonary: Effort: Pulmonary effort is normal. No respiratory distress. Breath sounds: Normal breath sounds. No wheezing, rhonchi or rales. Skin: General: Skin is warm and dry. Neurological: General: No focal deficit present. Mental Status: She is alert and oriented to person, place, and time. Gait: Gait abnormal (Straight cane for ambulation). Psychiatric: Mood and Affect: Mood normal. Behavior: Behavior normal. Assessment/Plan Diagnoses and all orders for this visit: Type 2 diabetes mellitus with other specified complication, without long-term current use of insulin - Microalbumin / creatinine, urine ratio; Future Patient's glucose readings have gradually improved and are mostly between 110-130's. Will recheck a HgbA1c in two months. Last HgbA1c was 7.1. Encouraged patient to monitor her glucose every other day, continuing to vary the time of day she checks it, did very well with monitoring it. Encouraged her to check her glucose if she ever has another episode of lightheadedness. Essential hypertension, benign (CMS/HCC) Patient's blood pressure is currently well controlled. Continue with current medications and I will continue to monitor. Goal BP remains less than 130/80. Morbid obesity (CMS/HCC) Has lost 5 pounds since her last appointment. Patient has clearly made some positive lifestyle modifications. Encouraged her to continue to aim for a balanced diet and avoid simple sugars. BMI 35.0-35.9,adult See above. Follow up in about 2 months (around 10/06/2024) for Diabetes. documented in this encounter [facility] 07-05-2024 History of Presen t illness Narrative Images from the original note were not included. Subjective Patient ID: Esperanza Tellez is a 88 y.o. female who presents to discuss lab results. Esperanza is present today to discuss the results of her abnormal labs results. Has been working on adding drinking a bottle of water a day. Has done it a few days. Current Outpatient Medications on File Prior to Visit Medication Sig Dispense Refill allopurinol (Zyloprim) 100 MG tablet Take 1 tablet (100 mg) by mouth every other day 45 tablet 3 carvedilol (Coreg) 25 MG tablet Take 1 tablet (25 mg) by mouth in the morning and 1 tablet (25 mg) in the evening. Take with meals. Take with food.. 180 tablet 3 cholecalciferol (Vitamin D-3) 50 MCG (1999 UT) capsule Take 1 capsule (50 mcg) by mouth Daily 100 capsule 3 triamcinolone (Kenalog) 0.025 % cream Apply topically 2 (two) times a day 30 g 2 triamterene-hydrochlorothiazide (Maxzide-25) 37.5-25 MG tablet Take 1 tablet by mouth in the morning. 100 tablet 3 No current facility-administered medications on file prior to visit. I have reviewed and reconciled the history and medication list with the patient today. Allergies Allergen Reactions Cephalexin Anaphylaxis Social History Tobacco Use Smoking status: Never Smokeless tobacco: Never Vaping Use Vaping status: Never Used Substance Use Topics Alcohol use: Never Drug use: Never No family history on file. 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 Respiratory: Negative for cough, shortness of breath and wheezing. Cardiovascular: Negative for chest pain, palpitations and leg swelling. Gastrointestinal: Negative for abdominal pain, constipation, diarrhea, nausea and vomiting. Skin: Negative for rash. Neurological: Positive for dizziness and weakness. Objective Physical Exam Constitutional: General: She is not in acute distress. Appearance: She is well-developed. She is obese. HENT: Head: Normocephalic and atraumatic. Eyes: General: No scleral icterus. Extraocular Movements: Extraocular movements intact. Conjunctiva/sclera: Conjunctivae normal. Pupils: Pupils are equal, round, and reactive to light. Cardiovascular: Rate and Rhythm: Normal rate and regular rhythm. Heart sounds: Normal heart sounds. No murmur heard. Pulmonary: Effort: Pulmonary effort is normal. No respiratory distress. Breath sounds: Normal breath sounds. No wheezing, rhonchi or rales. Skin: General: Skin is warm and dry. Neurological: General: No focal deficit present. Mental Status: She is alert and oriented to person, place, and time. Cranial Nerves: No cranial nerve deficit. Gait: Gait abnormal (Slow, straight cane for ambulation). Psychiatric: Mood and Affect: Mood normal. Behavior: Behavior normal. No visits with results within 1 Month(s) from this visit. Latest known visit with results is: Office Visit on 01/10/2024 Component Date Value Ref Range Status WHITE BLOOD CELL COUNT 07/02/2024 6.9 3.8 - 10.8 Thousand/uL Final RED BLOOD CELL COUNT 07/02/2024 4.23 3.80 - 5.10 Million/uL Final HEMOGLOBIN 07/02/2024 12.5 11.7 - 15.5 g/dL Final HEMATOCRIT 07/02/2024 37.3 35.0 - 45.0 % Final MCV 07/02/2024 88.2 80.0 - 100.0 fL Final MCH 07/02/2024 29.6 27.0 - 33.0 pg Final MCHC 07/02/2024 33.5 32.0 - 36.0 g/dL Final Comment: For adults, a slight decrease in the calculated MCHC value (in the range of 30 to 32 g/dL) is most likely not clinically significant; however, it should be interpreted with caution in correlation with other red cell parameters and the patient's clinical condition. RDW 07/02/2024 13.9 11.0 - 15.0 % Final PLATELET COUNT 07/02/2024 257 140 - 400 Thousand/uL Final MPV 07/02/2024 11.2 7.5 - 12.5 fL Final ABSOLUTE NEUTROPHILS 07/02/2024 3,850 1,500 - 7,800 cells/uL Final ABSOLUTE LYMPHOCYTES 07/02/2024 2,346 850 - 3,900 cells/uL Final ABSOLUTE MONOCYTES 07/02/2024 490 200 - 950 cells/uL Final ABSOLUTE EOSINOPHILS 07/02/2024 186 15 - 500 cells/uL Final ABSOLUTE BASOPHILS 07/02/2024 28 0 - 200 cells/uL Final NEUTROPHILS 07/02/2024 55.8 % Final LYMPHOCYTES 07/02/2024 34.0 % Final MONOCYTES 07/02/2024 7.1 % Final EOSINOPHILS 07/02/2024 2.7 % Final BASOPHILS 07/02/2024 0.4 % Final Glucose 07/02/2024 141 (H) 65 - 99 mg/dL Final Comment: Fasting reference interval For someone without known diabetes, a glucose value >125 mg/dL indicates that they may have diabetes and this should be confirmed with a follow-up test. BUN 07/02/2024 31 (H) 7 - 25 mg/dL Final Creatinine 07/02/2024 1.60 (H) 0.60 - 0.95 mg/dL Final EGFR 07/02/2024 31 (L) > OR = 60 mL/min/1.73m2 Final BUN/CREATININE RATIO 07/02/2024 19 6 - 22 (calc) Final Sodium 07/02/2024 141 135 - 146 mmol/L Final Potassium, Bld 07/02/2024 5.1 3.5 - 5.3 mmol/L Final Chloride 07/02/2024 104 98 - 110 mmol/L Final Carbon Dioxide 07/02/2024 27 20 - 32 mmol/L Final Calcium 07/02/2024 10.8 (H) 8.6 - 10.4 mg/dL Final PROTEIN, TOTAL 07/02/2024 6.4 6.1 - 8.1 g/dL Final ALBUMIN 07/02/2024 4.1 3.6 - 5.1 g/dL Final GLOBULIN 07/02/2024 2.3 1.9 - 3.7 g/dL (calc) Final ALBUMIN/GLOBULIN RATIO 07/02/2024 1.8 1.0 - 2.5 (calc) Final BILIRUBIN, TOTAL 07/02/2024 0.6 0.2 - 1.2 mg/dL Final ALKALINE PHOSPHATASE 07/02/2024 83 37 - 153 U/L Final AST 07/02/2024 11 10 - 35 U/L Final ALT 07/02/2024 15 6 - 29 U/L Final CHOLESTEROL, TOTAL 07/02/2024 270 (H) <200 mg/dL Final HDL CHOLESTEROL 07/02/2024 42 (L) > OR = 50 mg/dL Final TRIGLYCERIDES 07/02/2024 466 (H) <150 mg/dL Final Comment: If a non-fasting specimen was collected, consider repeat triglyceride testing on a fasting specimen if clinically indicated. aRe et al. J. of Clin. Lipidol. 2015;9:129-169. LDL-CHOLESTEROL 07/02/2024 Final Comment: LDL cholesterol not calculated. Triglyceride levels greater than 400 mg/dL invalidate calculated LDL results. Reference range: <100 Desirable range <100 mg/dL for primary prevention; <70 mg/dL for patients with CHD or diabetic patients with > or = 2 CHD risk factors. LDL-C is now calculated using the Kamran-Hdez calculation, which is a validated novel method providing better accuracy than the Friedewald equation in the estimation of LDL-C. Kamran SS et al. JAKY. 2013;310(19): 7324-8172 (http://education.bMobilized.Taplister /faq/ETE052) CHOL/HDLC RATIO 07/02/2024 6.4 (H) <5.0 (calc) Final NON HDL CHOLESTEROL 07/02/2024 228 (H) <130 mg/dL (calc) Final Comment: Non-HDL level > or = 220 is very high and may indicate genetic familial hypercholesterolemia (FH). Clinical assessment and measurement of blood lipid levels should be considered for all first-degree relatives of patients with an FH diagnosis. For patients with diabetes plus 1 major ASCVD risk factor, treating to a non-HDL-C goal of <100 mg/dL (LDL-C of <70 mg/dL) is considered a therapeutic option. VITAMIN D,25-OH,TOTAL,IA 07/02/2024 24 (L) 30 - 100 ng/mL Final Comment: Vitamin D Status 25-OH Vitamin D: Deficiency: <20 ng/mL Insufficiency: 20 - 29 ng/mL Optimal: > or = 30 ng/mL For 25-OH Vitamin D testing on patients on D2-supplementation and patients for whom quantitation of D2 and D3 fractions is required, the QuestAssureD(TM) 25-OH VIT D, (D2,D3), LC/MS/MS is recommended: order code 94591 (patients >2yrs). See Note 1 Note 1 For additional information, please refer to http://education.bMobilized.Taplister/ faq/OHD586 (This link is being provided for informational/ educational purposes only.) URIC ACID 07/02/2024 8.5 (H) 2.5 - 7.0 mg/dL Final Comment: Therapeutic target for gout patients: <6.0 mg/dL TEST NAME: 07/02/2024 HEMOGLOBIN A1c Final TEST CODE: 07/02/2024 496SB Final CLIENT CONTACT: 07/02/2024 NANCY MUELLER/KAELA Final REPORT ALWAYS MESSAGE SIGNATURE 07/02/2024 Final Comment: The laboratory testing on this patient was verbally requested or confirmed by the ordering physician or his or her authorized contact center representative after contact with an employee of [employer]. Federal regulations require that we maintain on file written authorization for all laboratory testing. Accordingly we are asking that the ordering physician or his or her authorized contact center representative sign a copy of this report and promptly return it to the client service manager. Signature: COMMENT 07/02/2024 Final Comment: Please have the ordering physician or his or her authorized contact center representative sign a copy of this report and promptly return it by faxing it to: [phone] or by returning the form to your rolloff truck driver. Hemoglobin A1C 07/02/2024 7.1 (H) <5.7 % of total Hgb Final Comment: For someone without known diabetes, a hemoglobin A1c value of 6.5% or greater indicates that they may have diabetes and this should be confirmed with a follow-up test. For someone with known diabetes, a value <7% indicates that their diabetes is well controlled and a value greater than or equal to 7% indicates suboptimal control. A1c targets should be individualized based on duration of diabetes, age, comorbid conditions, and other considerations. Currently, no consensus exists regarding use of hemoglobin A1c for diagnosis of diabetes for children. Assessment/Plan Diagnoses and all orders for this visit: Type 2 diabetes mellitus with other specified complication, without long-term current use of insulin ([facility]) - Blood Glucose Monitoring Suppl (Blood Glucose Monitor System) w/Device kit; 1 each Daily - Glucose Blood (Blood Glucose Test) strip; 1 each by In Vitro route Daily - Lancets 30G misc; 1 each Daily Patient's glucose was > 126 on two consecutive labs. HgbA1c ordered and showed that she has Diabetes, at 7.1. Normal is < 5.7. Advise pt that 7.1 is Diabetic range. Discussed today, the importance of proper diabetic control. Discussed possible complications of diabetes, including loss of vision, renal failure, increased risk of heart attacks and strokes, blood vessel and/or nerve damage. Discussed the recommended changes to reduce your blood sugars and minimize the risk of these complications. Discussed diabetic goals, including keeping A1C <7.0%. Encouraged her to work on decreasing carbohydrate and simple sugar intake. Recommend that patient switch to zero sugar Gatorade, and continue to work on increasing her water intake. Limit breads, pastas, and deserts. Provided pt with hand out on low glycemic index foods as a starting point for diet modification. Reviewed portion control with the patient. If the patient still has questions on this, a referral to a Dietitian can be arranged. The patient verbalized understanding of these instructions. Sent in glucometer and supplies to begin testing her glucose daily, varying the time of day she checks it. Advised goal is fasting glucose < 100. Nursing did demonstration and did review technique for checking glucose with the patient. Will see her back in one month to review glucose log and see how she is doing with lifestyle modification. She would like to try to bring her glucose down without medication first if possible. Mixed hyperlipidemia (CMS/HCC) Cholesterol was worse than previous. See above for diet modifications. Will plan to recheck with next labs. Idiopathic chronic gout of multiple sites without tophus Her Uric Acid for Gout was elevated, slightly higher than her previous. Verified with patient that she is taking the Allopurinol routinely every other day. Hypercalcemia Calcium was higher than previous at 10.8, would plan to recheck this after patient has been back on the Vitamin D. Likely when she comes in for her Medicare Wellness in January. Vitamin D deficiency Her Vitamin D was low, advised pt that I sent in a supplement for her to begin once a day. Chronic kidney disease, stage 3b (CMS/HCC) Kidney function still impaired, but slight improvement. This should continue to improve as she increases her water intake. Will recheck with next labs. Follow up in about 4 weeks (around 08/02/2024) for Diabetes. documented in this encounter [facility] 07-04-2024 Telephone encount er Note Pt scheduled [facility] 07-04-2024 Miscellaneous Notes Formattin g of this note might be different from the original. Pt scheduled Please let pt know that her recent labs showed multiple abnormal results that will be easier to discuss in person. Nothing dangerous, but it is important that we get them addressed. Please help her get scheduled for an appointment to discuss the lab results at her convenience. documented in this encounter [facility] 07-03-2024 Telephone encount er Note Please let pt know that her recent labs showed multiple abnormal results that will be easier to discuss in person. Nothing dangerous, but it is important that we get them addressed. Please help her get scheduled for an appointment to discuss the lab results at her convenience. [facility] 03-07-2024 History of Presen t illness Narrative Images from the original note were not included. Flowsheet Row Patient Outreach from 03/01/2024 in [facility] with Angy Tuesday, [employer] Hospital Information ED, Hospital or Group Home Facility Discharge? ED Patient has been contacted within 1 week of being seen in the ED No [Pt contacted outside of 1 week window] Have two attempts been made to contact the patient within one week of being seen in the ED? Yes Diagnosis left foot & knee pain, Arthritis, Gout Discharge Date 02/25/24 Discharged To: Home Setting Discharge Hospital [facility] Engagement Call Start Time 933 Admission Date 02/25/24 Medications Discharge medications reviewed and reconciled from hospital? No [[facility] nurse not available for med rec] Is the patient having any side effects they believe may be caused by any medication additions or changes? No Does the patient have all medications ordered at discharge? Yes Prescription Comments Prednisone 20mg - 2 tablets daily x3 days, Tramadol 50mg tablet - 1 tablet BID prn for pain. Pt reports finishing both prescriptions and taking as prescribed. She did not take acetaminophen 650mg. Appointments Does the patient have a primary care provider? Yes [Nancy GONZALEZ 03/07] Nursing Interventions Verified appointment date/time/provider Nursing Interventions Advised patient to keep appointment Self Management Patient Teaching Does the patient have access to their discharge instructions? Yes Nursing Interventions Reviewed instructions with patient What is the patient's perception of their health status since discharge? Improving Is the patient/caregiver able to teach back the hierarchy of who to call/visit for symptoms/problems? PCP, Specialist, Home Health nurse, Urgent Care, ED, 911 Yes Wrap Up Wrap Up Additional Comments patient presented to ED for left foot and ankle pain. XRs completed. Pt treated with toradol, discharged home with rx tramadol, prednisone, and tylenol arthritis pain. Pt reports completing rx tramadol and prednisone. She did not take the Tylenol arthritis pain. Pt reports pain improved and she is able to ambulate without difficulty. Call End Time 09 Subjective Patient ID: Esperanza Tellez is a 88 y.o. female who presents for a hospital follow up. Esperanza is in today for a hospital follow up from [facility] on 02/24 for left leg and foot pain that they said was gout or arthritis. She was prescribed prednisone and tramadol, states these helped. States she feels better than she did just a little weak. X-rays done in ER were negative for any acute findings. Current Outpatient Medications on File Prior to Visit Medication Sig Dispense Refill allopurinol (Zyloprim) 100 MG tablet Take 1 tablet (100 mg) by mouth every other day 45 tablet 3 carvedilol (Coreg) 25 MG tablet Take 1 tablet (25 mg) by mouth in the morning and 1 tablet (25 mg) in the evening. Take with meals. Take with food.. 180 tablet 3 triamcinolone (Kenalog) 0.025 % cream Apply topically 2 (two) times a day 30 g 2 triamterene-hydrochlorothiazide (Maxzide-25) 37.5-25 MG tablet Take 1 tablet by mouth in the morning. 100 tablet 3 No current facility-administered medications on file prior to visit. I have reviewed and reconciled the history and medication list with the patient today. Allergies Allergen Reactions Cephalexin Anaphylaxis Social History Tobacco Use Smoking status: Never Smokeless tobacco: Never Substance Use Topics Alcohol use: Never No family history on file. 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 Respiratory: Negative for cough, shortness of breath and wheezing. Cardiovascular: Negative for chest pain, palpitations and leg swelling. Gastrointestinal: Negative for abdominal pain, constipation, diarrhea, nausea and vomiting. Musculoskeletal: Positive for arthralgias. Skin: Negative for rash. Neurological: Positive for weakness. Objective Physical Exam Constitutional: General: She is not in acute distress. Appearance: She is well-developed. She is obese. Comments: Very pleasant HENT: Head: Normocephalic and atraumatic. Eyes: General: No scleral icterus. Conjunctiva/sclera: Conjunctivae normal. Cardiovascular: Rate and Rhythm: Normal rate and regular rhythm. Heart sounds: Normal heart sounds. No murmur heard. Pulmonary: Effort: Pulmonary effort is normal. No respiratory distress. Breath sounds: Normal breath sounds. No wheezing, rhonchi or rales. Musculoskeletal: Left knee: Normal range of motion. Left lower leg: No swelling or tenderness. Left ankle: No swelling. No tenderness. Normal range of motion. Left foot: Normal range of motion. No tenderness. Skin: General: Skin is warm and dry. Neurological: General: No focal deficit present. Mental Status: She is alert and oriented to person, place, and time. Psychiatric: Mood and Affect: Mood normal. Behavior: Behavior normal. Assessment/Plan Diagnoses and all orders for this visit: Left leg pain Patient's symptoms are much improved at this time. Encouraged her to follow up with us if the symptoms should return. The patient was seen today in follow up of recent hospital ER visit. All available hospital records/diagnostics were reviewed and discussed with the patient. ER discharge meds were reviewed. Pt is aware of blood work order and states will get this done before the end of the year. Follow up in about 5 months (around 08/05/2024) for Routine Follow Up with Dr. Anand. documented in this encounter [facility] 01-10-2024 History of Presen t illness Narrative Images from the original note were not included. Subjective : Chief Complaint: Esperanza Tellez is an 88 y.o. female here for an annual wellness visit. I have reviewed and reconciled the history and medication list with the patient today. Current Outpatient Medications on File Prior to Visit Medication Sig Dispense Refill triamcinolone (Kenalog) 0.025 % cream Apply topically 2 (two) times a day 30 g 2 [DISCONTINUED] allopurinol (Zyloprim) 100 MG tablet Take 100 mg by mouth every other day [DISCONTINUED] carvedilol (Coreg) 25 MG tablet Take 1 tablet (25 mg) by mouth in the morning and 1 tablet (25 mg) in the evening. Take with meals. Take with food.. 180 tablet 0 [DISCONTINUED] cholecalciferol (Vitamin D-3) 125 MCG (5000 UT) capsule TAKE ONE CAPSULE BY MOUTH DAILY 90 capsule 0 [DISCONTINUED] triamterene-hydrochlorothiazide (Maxzide-25) 37.5-25 MG tablet Take 1 tablet by mouth in the morning. 100 tablet 2 No current facility-administered medications on file prior to visit. Allergies Allergen Reactions Cephalexin Anaphylaxis Social History Tobacco Use Smoking status: Never Smokeless tobacco: Never Substance Use Topics Alcohol use: Never No family history on file. 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 HENT: Negative for congestion, ear pain, rhinorrhea and sore throat. Eyes: Negative for pain, discharge and visual disturbance. Respiratory: Negative for cough, shortness of breath and wheezing. Cardiovascular: Negative for chest pain, palpitations and leg swelling. Gastrointestinal: Negative for abdominal pain, constipation, diarrhea, nausea and vomiting. Genitourinary: Negative for difficulty urinating, dysuria and frequency. Musculoskeletal: Negative for arthralgias and back pain. Skin: Negative for rash. Neurological: Negative for dizziness and numbness. Psychiatric/Behavioral: Negative for sleep disturbance. The patient is not nervous/anxious. List of current healthcare providers: Patient Care Team: Phu Anand MD as PCP - General (Internal Medicine) Phu Anand MD as PCP - ACO Reach Medicare Annual Visit Over the past 2 weeks, how often have you been bothered by any of the following problems? Little interest or pleasure in doing things: Not at all Feeling down, depressed, or hopeless: Not at all Patient Health Questionnaire-2 Score: 0 Over the past 2 weeks, how often have you been bothered by any of the following problems? Trouble falling or staying asleep, or sleeping too much: Not at all Feeling tired or having little energy: Not at all Poor appetite or overeating: Not at all Feeling bad about yourself - or that you are a failure or have let yourself or your family down: Not at all Trouble concentrating on things, such as reading the newspaper or watching television: Not at all Moving or speaking so slowly that other people could have noticed? Or the opposite - being so fidgety or restless that you have been moving around a lot more than usual.: Not at all Thoughts that you would be better off or hurting yourself in some way: Not at all Patient Health Questionnaire-9 Score: 0 Tan Fall Risk History of Falling, Immediate or Within 3 Months: No Health Risk Assessment Form Do you need help eating, bathing, using the toilet, dressing, or getting around your home?: No Can you prepare your own meals?: Yes Can you do your own housework without help?: Yes Can you shop for groceries or clothes without help?: Yes Do you exercise for about 20 minutes 3 or more days a week?: No How confident are you that you can control and manage most of your health problems?: Very confident Can you mange your money, credit cards and accounts, pay bills and taxes?: Yes Vision Screening: Yes, no gross abnormalities Hearing Screening: Yes, no gross abnormalities Cognitive Screening Self Assessment: No overt cognitive deficiency is apparent by direct observation Three Word Registration: Leader, Season, Table Clock Drawing: Partial Clock - 1 (all number correct but time wrong) Three Word Recall: 2/3 words correct - 2 Total Score (0-5 Points): 3 Pain Assessment Pain Score: 2 Advance Care Planning Do you have a living will?: Yes Do you have a medical power of litigation attorney associate?: Yes Objective : BP 110/60 Pulse 76 Resp 16 Ht 5' 5 Wt 216 lb 9.6 oz SpO2 98% BMI 36.04 kg/m No results found. Physical Exam Constitutional: General: She is not in acute distress. Appearance: She is well-developed. She is obese. HENT: Head: Normocephalic and atraumatic. Right Ear: Tympanic membrane and ear canal normal. Left Ear: Tympanic membrane and ear canal normal. Nose: Nose normal. Mouth/Throat: Mouth: Mucous membranes are moist. Pharynx: No posterior oropharyngeal erythema. Eyes: General: No scleral icterus. Extraocular Movements: Extraocular movements intact. Conjunctiva/sclera: Conjunctivae normal. Pupils: Pupils are equal, round, and reactive to light. Neck: Vascular: No carotid bruit. Cardiovascular: Rate and Rhythm: Normal rate and regular rhythm. Heart sounds: Normal heart sounds. No murmur heard. Pulmonary: Effort: Pulmonary effort is normal. No respiratory distress. Breath sounds: Normal breath sounds. No wheezing, rhonchi or rales. Abdominal: General: Bowel sounds are normal. There is no distension. Palpations: Abdomen is soft. Tenderness: There is no abdominal tenderness. There is no guarding. Musculoskeletal: General: No swelling or deformity. Normal range of motion. Cervical back: Normal range of motion and neck supple. No tenderness. Skin: General: Skin is warm and dry. Capillary Refill: Capillary refill takes less than 2 seconds. Findings: No rash. Neurological: General: No focal deficit present. Mental Status: She is alert and oriented to person, place, and time. Cranial Nerves: No cranial nerve deficit. Sensory: No sensory deficit. Motor: No weakness. Gait: Gait normal. Deep Tendon Reflexes: Reflexes normal. Psychiatric: Mood and Affect: Mood normal. Behavior: Behavior normal. Thought Content: Thought content normal. Judgment: Judgment normal. Assessment/Plan : The following health maintenance schedule was reviewed with the patient and provided in printed form in the after visit summary: Health Maintenance Topic Date Due Influenza Vaccine (1) 10/08/2024 (Originally 12/11/2023) Pneumococcal Vaccine: 65+ Years (2 of 2 - PCV) 01/09/2025 (Originally 03/14/2020) Advance Care Planning Has ACP in place. 1. Medicare annual wellness visit, subsequent Reviewed all relevant preventative screenings with the patient in detail. Medicare Wellness form completed and will be scanned into patient's chart. All needed testing was ordered. Will continue with yearly Medicare Wellness exams. - CBC and differential - Comprehensive metabolic panel - Lipid panel - Vitamin D 25 hydroxy Total - Uric acid 2. Essential hypertension (CMS/HCC) Patient's blood pressure is currently well controlled. Continue with current medications and I will continue to monitor. Goal BP remains less than 130/80. - triamterene-hydrochlorothiazide (Maxzide-25) 37.5-25 MG tablet; Take 1 tablet by mouth in the morning. Dispense: 100 tablet; Refill: 3 - carvedilol (Coreg) 25 MG tablet; Take 1 tablet (25 mg) by mouth in the morning and 1 tablet (25 mg) in the evening. Take with meals. Take with food.. Dispense: 180 tablet; Refill: 3 - CBC and differential - Comprehensive metabolic panel - Lipid panel 3. ACP (advance care planning) Patient willing to discuss ACP. Pt has Living Will and DPOA in place. 4. Elevated uric acid in blood This is a chronic medical condition that is stable since last assessment. No changes in treatment are suggested at this time. Will continue to monitor with routine labs. - allopurinol (Zyloprim) 100 MG tablet; Take 1 tablet (100 mg) by mouth every other day Dispense: 45 tablet; Refill: 3 - Uric acid 5. Degeneration of intervertebral disc of lumbar region with discogenic back pain Provided pt with handicap placard today. This is a chronic medical condition that is stable since last assessment. No changes in treatment are suggested at this time. - Handicap Placard Lifetime 6. Peripheral polyneuropathy Provided pt with handicap placard today. This is a chronic medical condition that is stable since last assessment. No changes in treatment are suggested at this time. - Handicap Placard Lifetime 7. Atelectasis This is a chronic medical condition that is stable since last assessment. No changes in treatment are suggested at this time. 8. 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 No changes in treatment are suggested at this time. Will continue to monitor with routine labs. 9. Gastro-esophageal reflux disease without esophagitis This is a chronic medical condition that is stable since last assessment. No changes in treatment are suggested at this time. 10. Localized osteoporosis of [place] ([facility]) This is a chronic medical condition that is stable since last assessment. No changes in treatment are suggested at this time. 11. Morbid obesity ([facility]) Encouraged portion control, decrease simple sugars and carbohydrates, gradually increase activity level. Aim for gradual steady weight loss. 12. Vitamin D deficiency This is a chronic medical condition that is stable since last assessment. No changes in treatment are suggested at this time. Will continue to monitor with routine labs. - Vitamin D 25 hydroxy Total 13. Actinic keratosis This is a chronic medical condition that is stable since last assessment. No changes in treatment are suggested at this time. 14. Elevated alkaline phosphatase level This is a chronic medical condition that is stable since last assessment. No changes in treatment are suggested at this time. Will continue to monitor with routine labs. - Comprehensive metabolic panel 15. Elevated myoglobin level This is a chronic medical condition that is stable since last assessment. No changes in treatment are suggested at this time. 16. Estrogen deficiency This is a chronic medical condition that is stable since last assessment. No changes in treatment are suggested at this time. 17. Hypercalcemia This is a chronic medical condition that is stable since last assessment. No changes in treatment are suggested at this time. Will continue to monitor with routine labs. - Comprehensive metabolic panel 18. Idiopathic chronic gout of multiple sites without tophus This is a chronic medical condition that is stable since last assessment. No changes in treatment are suggested at this time. Will continue to monitor with routine labs. - Uric acid 19. Menopausal and postmenopausal disorder This is a chronic medical condition that is stable since last assessment. No changes in treatment are suggested at this time. 20. Migraine without aura, not refractory ([facility]) This is a chronic medical condition that is stable since last assessment. No changes in treatment are suggested at this time. 21. Other rosacea This is a chronic medical condition that is stable since last assessment. No changes in treatment are suggested at this time. 22. Pure hypercholesterolemia ([facility]/HCC) This is a chronic medical condition that is stable since last assessment. No changes in treatment are suggested at this time. Will continue to monitor with routine labs. - Lipid panel 23. Chronic kidney disease, stage 4 (severe) (CMS/HCC) This is a chronic medical condition that is stable since last assessment. No changes in treatment are suggested at this time. Will continue to monitor with routine labs. - CBC and differential - Comprehensive metabolic panel 24. BMI 36.0-36.9,adult Encouraged portion control, decrease simple sugars and carbohydrates, gradually increase activity level. Aim for gradual steady weight loss. Follow up in about 6 months (around 07/10/2024) for Hypertension. Electronically signed by Nancy Mueller PA-C on January 10, 2024 documented in this encounter [facility] 01-04-2024 Telephone encount er Note LVM [facility] 01-04-2024 Miscellaneous Notes Formattin g of this note might be different from the original. LVM Pt has not been in office since 11/2022 and needs to make an a MAWV appt , at the appt she can get the placard Pt would like to have a handicap plaque if possible. Hers is expiring documented in this encounter [facility] 01-04-2024 Telephone encount er Note Pt has not been in office since 11/2022 and needs to make an a MAWV appt , at the appt she can get the placard [facility] 01-04-2024 Telephone encount er Note Pt would like to have a handicap plaque if possible. Hers is expiring T [facility] 09-02-2021 Evaluation note Encounter Date Diagnosis Assessment Notes August, Allergic rhinitis, unspecified seasonality, unspecified trigger (ICD-10 - J30.9) Drink plenty fluids, get plenty of rest. Continue your home medications as prescribed. Continue to take your daily antihistamine. Use the Flonase inhaler as prescribed until your symptoms improve. Follow-up with your family physician if no improvement in 2 to 3 days. [email or web address] Other 07-13-2021 NotePROCEDURE: XR GI UPPER AIR KUB DUAL CONTRAST, XR CINERADIOGRAPHY COMPARISON: None. HISTORY: Nausea TECHNIQUE: An air contrast upper gastrointestinal series was performed in the usual manner. Standard level fluoroscopic mode of operation utilized. FINDINGS: ESOPHAGUS:Momentary delay in passage of contents from esophagus into the stomach with narrowing of the gastroesophageal junction initially, however, a 13 mm barium tablet passed easily through the gastroesophageal junction indicating the valve will relax and open widely when needed. No gastroesophageal reflux. Occasional mild tertiary waves. STOMACH: No obstruction, mass, or ulceration. Normal motility. DUODENUM:No ulceration or diverticulum. OTHER: Negative. IMPRESSION: 1. No abnormal findings to account the patient's symptoms. Electronically authenticated by: CHLOE HESTER Date: 2020-10-21 11:41[facility]07-13-2021 NotePROCEDURE: XR GI UPPER AIR KUB DUAL CONTRAST, XR CINERADIOGRAPHY COMPARISON: None. HISTORY: Nausea TECHNIQUE: An air contrast upper gastrointestinal series was performed in the usual manner. Standard level fluoroscopic mode of operation utilized. FINDINGS: ESOPHAGUS:Momentary delay in passage of contents from esophagus into the stomach with narrowing of the gastroesophageal junction initially, however, a 13 mm barium tablet passed easily through the gastroesophageal junction indicating the valve will relax and open widely when needed. No gastroesophageal reflux. Occasional mild tertiary waves. STOMACH: No obstruction, mass, or ulceration. Normal motility. DUODENUM:No ulceration or diverticulum. OTHER: Negative. IMPRESSION: 1. No abnormal findings to account the patient's symptoms. 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, stage 1 through stage 4 or unspecified chronic kidney disease, without heart failure ([facility]/HCC) Gastro-esophageal reflux disease without esophagitis Localized osteoporosis of [place] ([facility]/HCC) Morbid obesity ([facility]/HCC) Morbid obesity Vitamin D deficiency Actinic keratosis Elevated alkaline phosphatase level Elevated myoglobin level Other abnormal blood chemistry Estrogen deficiency Other ovarian failure Hypercalcemia Idiopathic chronic gout of multiple sites without tophus Menopausal and postmenopausal disorder Unspecified menopausal and postmenopausal disorder Migraine without aura, not refractory ([facility]) Other rosacea Pure hypercholesterolemia ([facility]/HCC) Pure hypercholesterolemia Chronic kidney disease, stage 4 (severe) ([facility]) BMI 36.0-36.9,adult documented in this encounter [facility] HealthcareEvaluation note* Diagnosis Left leg pain- Primary Pain in soft tissues of limb documented in this encounter [facility] HealthcareEvaluation note* Diagnosis Vitamin D deficiency- Primary Idiopathic chronic gout of multiple sites without tophus Mixed hyperlipidemia ([facility]) Mixed hyperlipidemia Impaired fasting glucose documented in this encounter [facility] HealthcareEvaluation note* Diagnosis Type 2 diabetes mellitus with other specified complication, without long-term current use of insulin ([facility])- Primary Mixed hyperlipidemia ([facility]/HCC) Mixed hyperlipidemia Idiopathic chronic gout of multiple sites without tophus Hypercalcemia Vitamin D deficiency Chronic kidney disease, stage 3b (HCC) ([facility]) documented in this encounter [facility] HealthcareEvaluation note* Diagnosis Type 2 diabetes mellitus with other specified complication, without long-term current use of insulin- Primary Essential hypertension, benign (CMS/HCC) Essential hypertension, benign Morbid obesity ([facility]/HCC) Morbid obesity BMI 35.0-35.9,adult documented in this encounter [facility] HealthcareEvaluation note* Diagnosis Type 2 diabetes mellitus with other specified complication, without long-term current use of insulin ([facility])- Primary Essential hypertension, benign Essential hypertension, benign Morbid obesity ([facility]-HCC) Morbid obesity documented in this encounter [facility] HealthcareHistory general Narrative - Reported* Type Description Date Medical History Hypertension Surgical History cyst removal [email or web address] Other Summary Purpose Family History No Family History Records FoundNo Family History Records FoundNo Family History Records FoundNo Family History Records FoundNo Family History Records Found Advance Directives No Advanced Directives Records FoundDocuments on File Type Date Recorded 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 Power of Aircraft Riveter 07/05/2024 4:04 PM Healt hcare Power of Aircraft Riveter Advance Directives and Living Will 07/05/2024 4:03 PM Living Will Declaration Additional Source Comments INFORMATION SOURCE (unrecogn ized section and content) DATE CREATED AUTHOR 04/25/2021 [facility] DATE CREATED AUTHOR AUTHOR'S ORGANIZ ATION 06/03/2021 [facility] dical Specialist DATE CREATED AUTHOR AUTHOR'S ORGANIZ ATION 06/13/2021 [facility] DATE CREATED AUTHOR AUTHOR'S ORGANIZ ATION 10/09/2024 [facility] d[facility] Specialists EPIC DATE CREATED AUTHOR AUTHOR'S ORGANIZ ATION 10/13/2024 [facility] REASON FOR VISIT (unrecogniz ed section and content) Reason Comments Med Refill Allopurinol, Carvedi olol, Triamterene-hydrochlorothiazide, handicap placard Care Teams (unrecognized sec tion and content) [employer] Relationship Specialty Start Date End Date Phu Anand MD [address] [facility] [address] [place] [address] PCP - ACO Reach 09/02/22 Phu Anand MD [address] [facility] [address] [place] [address] PCP - General Internal Medicine 08/17/22 [employer] Relationship Specialty Start Date End Date Phu Anand MD [address] [facility] [address] [place] [address] PCP - ACO Reach 09/02/22 Phu Anand MD [address] [facility] [address] [place] [address] PCP - General Internal Medicine 08/17/22 [employer] Relationship Specialty Start Date End Date Phu Anand MD [address] [place] [address] [place] [address] PCP - ACO Reach 09/02/22 Phu Anand MD [address] [facility] [address] [place] [address] PCP - General Internal Medicine 08/17/22 [employer] Relationship Specialty Start Date End Date Phu Anand MD [address] [place] [address] [place] [address] PCP - ACO Reach 09/02/22 Phu Anand MD [address] [facility] [address] [place] [address] PCP - General Internal Medicine 08/17/22 [employer] Relationship Specialty Start Date End Date Phu Anand MD [address] [place] [address] [place] [address] PCP - ACO Reach 09/02/22 Phu Anand MD [address] [place] [address] [place] [address] PCP - General Internal Medicine 08/17/22 Mary Almonte LPN 06/29/24 [employer] Relationship Specialty Start Date End Date Phu Anand MD [address] [place] [address] [place] [address] PCP - ACO Reach 09/02/22 Phu Anand MD [address] [facility] [address] [place] [address] PCP - General Internal Medicine 08/17/22 Mary Almonte LPN 06/29/24 [employer] Relationship Specialty Start Date End Date Phu Anand MD [address] [place] [address] [place] [address] PCP - ACO Reach 09/02/22 Phu Anand MD [address] [place] [address] [place] [address] PCP - General Internal Medicine 08/17/22 Mary Almonte LPN 06/29/24 [employer] Relationship Specialty Start Date End Date Phu Anand MD [address] [place] [address] [place] [address] PCP - ACO Reach 09/02/22 Phu Anand MD [address] [place] [address] [place] [address] PCP - General Internal Medicine 08/17/22 Mary Almonte BODY WORKER 06/29/24 [employer] Relationship Specialty Start Date End Date Phu Anand MD [address] [place] [address] [place] [address] PCP - ACO Reach 09/02/22 Phu Anand MD [address] [place] [address] [place] [address] PCP - General Internal Medicine 08/17/22 Mary Almonte LPN 06/29/24 [employer] Relationship Specialty Start Date End Date Phu Anand MD [address] [place] [address] [place] [address] PCP - ACO Reach 09/02/22 Phu Anand MD [address] [place] [address] [place] [address] PCP - General Internal Medicine 08/17/22 Mary Almonte LPN [address] [facility] [address] [place] [address] 06/29/24 [employer] Relationship Specialty Start Date End Date Phu Anand MD [address] [facility] [address] [place] [address] PCP - ACO Reach 09/02/22 Phu Anand MD [address] [facility] [address] [place] [address] PCP - General Internal Medicine 08/17/22 Mary Almonte LPN [address] [facility] [address] [place] [address] 06/29/24 FOR RECORDS PERTAINING TO PATIENTS WHO ARE OR HAVE BEEN ENROLLED IN A CHEMICAL DEPENDENCY/SUBSTANCEABUSE PROGRAM, SOME INFORMATION MAY BE OMITTED. This clinical summary was aggregated from multiple sources. Caution should be exercised in using it in the provision of clinical care. This summary normalizes information from multiple sources, and as a consequence, information in this document may materially change the coding, format and clinical context of patient data. In addition, data may be omitted in some cases. CLINICAL DECISIONS SHOULD BE BASED ON THE PRIMARY CLINICAL RECORDS. [facility]. provides no warranty or guarantee of the accuracy or completeness of information in this document.
--- NOTE | 2024-12-07 15:25 | XR_ITS ---
The [address] [address] Patient Name: ESPERANZA TELLEZ MRN: [id number] date: 1935 Sex: F Assigned Patient Location: ER Current Patient Location: ER Accession/Order Number: [id number] Exam Date: 12/07/2024 15:32 Report Date: 12/07/2024 15:54 At the request of: LISETTE SHAIKH MD Procedure: XR hand LT min 3V XR hand LT min 3V 12/07/2024 3:34 PM SIGNS AND SYMPTOMS: Left hand pain and swelling PROTOCOL: Frontal, lateral, and oblique radiographs of the left hand COMPARISON: None FINDINGS: There is narrowing of the interphalangeal joint spaces and to a lesser extent the metacarpophalangeal joint spaces throughout. There is narrowing of the first carpometacarpal junction. There is no evidence of fracture or dislocation. There is nonspecific diffuse soft tissue swelling. XR/XR hand LT min 3V IMPRESSION: No fracture or dislocation. Nonspecific diffuse soft tissue swelling is noted. Degenerative changes are noted throughout the left hand as above. Impression dictated by: Shaheen Trejo M.D. 12/07/2024 3:54 PM Dictation Location: [place] [address] Electronically authenticated by: [id number] Y Date: 12/07/2024 15:54
[2024-12-07] MEDS: KETOROLAC TROMETHAMINE 30 MG/ML VIAL IM (15:33)
--- NOTE | 2024-12-07 15:53 | ED.GENADUL1 ---
HPI HPI - General Adult General Chief complaint: Extremity Problem, Nontraumatic Stated complaint: SWOLLEN LEFT HAND Time Seen by Provider: 12/07/24 15:19 Source: patient Mode of arrival: walk-in Limitations: no limitations History of Present Illness HPI narrative: 83-year-old female to the emergency department chief complaint of hand pain. Reports this morning she noticed some mild redness and discomfort on the back of her hand over the 2nd and 3rd digits. No falls. No fever, sweats, chills. She has never had anything like this before. Related Data Home Medications ?Medication ?Instructions ?Recorded ?Confirmed allopurinol 100 mg tablet 100 mg PO .every other day 02/25/24 12/07/24 carvedilol 25 mg tablet 25 mg PO BID 02/25/24 12/07/24 triamterene 37.5 1 tab PO QAM 02/25/24 12/07/24 mg-hydrochlorothiazide 25 mg tablet triamcinolone acetonide 0.025 % applic topical 12/07/24 topical cream Previous Rx's ?Medication ?Instructions ?Recorded acetaminophen 650 mg 650 mg PO Q8H PRN pain #20 tabs 02/25/24 tablet,extended release (Tylenol Arthritis Pain) cephalexin 500 mg capsule 500 mg PO Q6H 7 days #28 caps 12/07/24 cephalexin 500 mg capsule 500 mg PO Q6H 7 days #28 caps 12/07/24 Allergies Allergy/AdvReac Type Severity Reaction Status Date / Time No Known Drug Allergies Allergy Verified 02/25/24 10:42 Opioid HPI Opioid Management Most Recent Opioid Data: Last Pain Scale 6 Today, 15:33 Last JUN Pain Assessment Today, 15:33 Review of Systems ROS Status of ROS 10 or more systems reviewed and unremarkable except as noted in history and below [facility] Medical History (Updated 12/07/24 @ 15:55 by Jarrod Kuhn MD) HTN (hypertension) ?I10 - Essential (primary) hypertension (ICD-10) Gout ?M10.9 - Gout, unspecified (ICD-10) Social History Little interest or pleasure in doing things: not at all Feeling down, depressed, or hopeless: not at all Exam Narrative Exam Narrative: VITALS: I have reviewed the triage vital signs. GENERAL: Well developed, well appearing adult in no acute distress. NEURO: Alert and oriented. Moves all extremities. Face is symmetric and expressive. EYES: PERRL. No scleral icterus or conjunctival injection. No discharge. HENT: Normocephalic, atraumatic. Hearing is grossly intact. Nares grossly patent and without discharge. Mucous membranes moist. NECK: No JVD. Patient moves neck without restriction. Left hand: Radial pulses intact. Sensation is intact over the hand. Cap refill intact in each digit. Flexion, extension, gym instructor strength, wrist extension are intact. There is some trace erythema and warmth about the posterior hand. SKIN: Warm and dry. Normal turgor. No rash or lesions appreciated. PSYCH: Mood, affect, and interaction is appropriate to the setting. Constitutional Vital Signs, click to edit/add: Last Vital Signs Temp 97.5 F L 12/07/24 15:13 Pulse 93 H 12/07/24 15:13 Resp 18 12/07/24 15:13 BP 180/77 H 12/07/24 15:13 Pulse Ox 96 12/07/24 15:13 O2 Del Method Room Air 12/07/24 15:13 Course Vital Signs Vital signs: Vital Signs Temperature 97.5 F L 12/07/24 15:13 Pulse Rate 93 H 12/07/24 15:13 Respiratory Rate 18 12/07/24 15:13 Blood Pressure 180/77 H 12/07/24 15:13 Pulse Oximetry 96 12/07/24 15:13 Oxygen Delivery Method Room Air 12/07/24 15:13 Temperature 97.5 F L 12/07/24 15:13 Pulse Rate 93 H 12/07/24 15:13 Respiratory Rate 18 12/07/24 15:13 Blood Pressure 180/77 H 12/07/24 15:13 Pulse Oximetry 96 12/07/24 15:13 Oxygen Delivery Method Room Air 12/07/24 15:13 Medical Decision Making [facility] Narrative Medical decision making narrative: 89-year-old female to the emergency department with chief complaint of hand pain. Vital stable, the patient is afebrile. There is some trace erythema, warmth and edema to the posterior aspect of her left hand. The limb is neurovascularly intact. Suspect an early cellulitis. Will obtain x-ray. X-ray without acute findings Will treat for early cellulitis. Keflex 4 times daily. Follow-up with PCP. Return precautions were discussed. All questions were answered. The patient was discharged home. Medical Records Medical records reviewed: Yes I reviewed the patient's medical records Imaging Data xray hand: Attestation: I have reviewed the pertinent imaging results. Radiologist's impression: ITS Impressions Hand X-Ray 12/07/24 15:25 IMPRESSION: No fracture or dislocation. Nonspecific diffuse soft tissue swelling is noted. Degenerative changes are noted throughout the left hand as above. Impression dictated by: Shaheen Trejo M.D. 12/07/2024 3:54 PM Dictation Location: [place] [address] Electronically authenticated by: [id number] Y Date: 12/07/2024 15:54 Discharge Plan Discharge Chief Complaint: Extremity Problem, Nontraumatic Clinical Impression: Cellulitis Patient Disposition: Home, Self-Care Time of Disposition Decision: 16:16 Condition: Good Mode of Transportation: Private Vehicle Prescriptions / Home Meds: New cephalexin 500 mg capsule 500 mg PO Q6H 7 Days Qty: 28 0RF cephalexin 500 mg capsule 500 mg PO Q6H 7 Days Qty: 28 0RF No Action allopurinol 100 mg tablet 100 mg PO .every other day carvedilol 25 mg tablet 25 mg PO BID triamterene-hydrochlorothiazid 37.5-25 mg tablet 1 tab PO QAM acetaminophen [Tylenol Arthritis Pain] 650 mg tablet extended release 650 mg PO Q8H PRN (Reason: pain) Qty: 20 0RF triamcinolone acetonide 0.025 % cream TOPICAL Print Language: Cam[place]onian Instructions: Cellulitis (ED) Additional Instructions: Call the office of your primary care doctor to arrange for follow-up within the above-stated timeframe. Your ED visit was focused on your acute issue and does not replace primary care. You should review your labs, imaging, and diagnoses from this ED visit with your primary care physician. There may be non-emergent/ incidental findings that need further evaluation. You should review your vital signs including blood pressure with your PCP. If you were prescribed medications you should discuss possible side-effects and drug interactions with your pharmacist. Call 911 or go to the nearest Emergency Department if you develop any new or worsening symptoms. Referrals: Physician,Non-Staff, MD [Primary Care Provider] - 1 week
== END 2024-12-07 16:29 | disposition home or self-care (01) ==
PROVIDERS: Emergency Provider Student in an Organized Health Care Education/Training Program
DX: L03.114 Cellulitis of left upper limb (principal)
CPT/HCPCS: 73130; 96372; 99284; J1885

== ENCOUNTER 2025-04-08 06:00 | Emergency (ER) | payer MEDICARE, SELFPAY ==
[2025-04-08 06:03] VITALS: BP 162/96; PULSE 77; TEMP 37; O2SAT 97; BMI 32.3
--- NOTE | 2025-04-08 06:20 | XR_ITS ---
The [address] [address] Patient Name: ESPERANZA TELLEZ MRN: [id number] date: 1935 Sex: F Assigned Patient Location: ED.MAIN Current Patient Location: ED.MAIN Accession/Order Number: [id number] Exam Date: 04/08/2025 06:38 Report Date: 04/08/2025 09:02 At the request of: AZRA HARRIS Procedure: XR knee LT 4V LEFT KNEE - 4 views COMPARISON: 02/25/2024 CLINICAL DATA: Left knee pain without injury. AP, lateral and both oblique views were obtained. There is osteopenia. No acute fracture or dislocation is noted. There is mild narrowing at the medial tibiofemoral joint compartment. There are small tricompartment marginal spurs. There is enthesophyte at the insertion of quadriceps tendon. A small knee effusion is present. XR/XR knee LT 4V IMPRESSION: OSTEOPENIA AND MILD DEGENERATIVE CHANGES. SMALL KNEE EFFUSION. NO ACUTE BONY FINDINGS. Impression dictated by: Nancy Cuevas M.D. 04/08/2025 9:02 AM Dictation Location: [place] [address] Electronically authenticated by: [id number] Y Date: 04/08/2025 09:02
--- NOTE | 2025-04-08 06:21 | ED.EXTPRO1 ---
HPI - Extremity Problem General Chief complaint: Extremity Problem, Nontraumatic Stated complaint: L LEG PAIN Time Seen by Provider: 04/08/25 06:03 Source: patient Mode of arrival: Wheelchair History of Present Illness HPI Narrative: cc - left knee pain Pt developed increased pain to the left knee 2-3 days ago. She denied any recent injury or increased/changed activity that might have caused the knee pain. She tried some topical Aspercream to the front of the knee but it didn't help at all . She woke this morning about an hour ago with markedly worse pain, so she had a family member bring her to the ED for evaluation and treatment. She reported having gout in the past - but not in that knee. Many years ago, she had a left knee scope - but she cannot tell me what they found. She has never had any other surgeries to that knee. No knee redness, no calf pain, no fever or chills. Related Data Home Medications ?Medication ?Instructions ?Recorded ?Confirmed allopurinol 100 mg tablet 100 mg PO .every other day 02/25/24 04/08/25 carvedilol 25 mg tablet 25 mg PO BID 02/25/24 04/08/25 triamterene 37.5 1 tab PO QAM 02/25/24 04/08/25 mg-hydrochlorothiazide 25 mg tablet Allergies Allergy/AdvReac Type Severity Reaction Status Date / Time No Known Drug Allergies Allergy Verified 02/25/24 10:42 [facility] Medical History (Updated 12/07/24 @ 15:55 by Jarrod Kuhn MD) HTN (hypertension) ?I10 - Essential (primary) hypertension (ICD-10) Gout ?M10.9 - Gout, unspecified (ICD-10) Social History Little interest or pleasure in doing things: not at all Feeling down, depressed, or hopeless: not at all Exam Narrative Exam Narrative: Vital signs reviewed and nurse?s notes. The patient is not hypoxic. General:Alert, no acute distress, patient resting comfortably Skin:warm, intact, no pallor noted Head: Normocephalic, atraumatic Eye:Normal conjunctiva Respiratory:No acute distress Musculoskeletal:No evidence of deformity to the L knee. There is a minimal amount of swelling. There is no ecchymosis. No erythema or warmth noted. DP and PT pulses are intact 2+. Normal sensation, normal capillary refill less than 2 seconds. There is no cyanosis or mottling noted. The patient has tenderness to the anterior and medial aspect of the left knee. The patient has no laxity with varus or valgus stressing -but this testing is limited because of the patient's complaint of pain in the left knee. The patient has negative anterior drawer and Deondre testing -but this is also limited due to pain.The patient was able to flex and extend although with pain. Patient was able to extend leg off the cart but with a great deal of difficulty due to the pain. No tenderness noted to the 5th MT, midfoot, ankle or proximal fibular area. There is no pain with calcaneal squeeze, achilles tendon is intact and no defect is palpated. The patient has no pelvic instability. The patient has no shortening or rotation noted to the bilateral lower extremities. Neurological:alert and orient x4, normal sensory and motor observed. Psychiatric:Cooperative Constitutional Vital Signs, click to edit/add: Last Vital Signs Temp 98.6 F 04/08/25 06:03 Pulse 77 04/08/25 06:03 Resp 18 04/08/25 06:03 BP 162/96 H 04/08/25 06:03 Pulse Ox 97 04/08/25 06:03 O2 Del Method Room Air 04/08/25 06:03 Course Vital Signs Vital signs: Vital Signs Temperature 98.6 F 04/08/25 06:03 Pulse Rate 77 04/08/25 06:03 Respiratory Rate 18 04/08/25 06:03 Blood Pressure 162/96 H 04/08/25 06:03 Pulse Oximetry 97 04/08/25 06:03 Oxygen Delivery Method Room Air 04/08/25 06:03 Temperature 98.6 F 04/08/25 06:03 Pulse Rate 77 04/08/25 06:03 Respiratory Rate 18 04/08/25 06:03 Blood Pressure 162/96 H 04/08/25 06:03 Pulse Oximetry 97 04/08/25 06:03 Oxygen Delivery Method Room Air 04/08/25 06:03 MDM - Extremity (Nontraumatic) MDM Narrative Medical decision making narrative: X-rays of the left knee were ordered to be obtained. Blood was also ordered to be drawn and sent for testing including CBC, CRP, sed rate and uric acid. Patient was ordered to receive oral Tylenol and oral prednisone for pain. She said that she was told by her primary care provider that because of issues with her kidney she could not receive NSAIDs. Pt signed out at shift change. Discharge Plan Discharge Patient Disposition: Still a Patient
[2025-04-08 06:43] LABS: Hematocrit 35.7 % (36.0-48.0); Hemoglobin 11.9 g/dL (12.0-16.0); Immature Granulocytes Abs Auto 0.10 10^3/uL (0.00-0.03); Immature Granulocytes Pct Auto 1.3 % (0.0-0.5); Lymphocytes Absolute Auto 1.9 10^3/uL (1.2-3.8); Mean Corpuscular HGB Conc 33.3 g/dL (29.9-35.2); Mean Corpuscular Hemoglobin 29.4 pg (26.7-34.0); Mean Corpuscular Volume 88.1 fL (81.0-99.0); Platelet Count 258 10^3/uL (150-450); Red Blood Count 4.05 10^6/uL (4.20-5.40); White Blood Count 7.7 10^3/uL (4.0-11.0)
--- OUTSIDE RECORDS SUMMARY | 2025-04-08 06:44 | XMS_ITS | Clinical Summary ---
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 Name Role Phone Unavailable Primary Care Provider Unavailabl e Social History Tobacco UseTypesPacks/DayYears UsedDateSmoking Tobacco: Never AssessedUT Safety & EnvironmentAnswerDate RecordedFear of Current or Ex-PartnerNot on file 06/02/2023Emotionally AbusedNot on file06/02/2023hysically AbusedNot on file 06/02/2023Sexually AbusedNot on file06/02/2023hysically or Sexually AbusedNot on file06/02/2023CommentsUnknownSex and Gender InformationValueDate RecordedSex Assigned at BirthNot on fileLegal DoiDcmnfp48/29/2022 10:33 PM EDT Gender IdentityNot on fileSexual OrientationNot on file Plan of Treatment Not on file
--- OUTSIDE RECORDS SUMMARY | 2025-04-08 06:44 | XMS_ITS | Clinical Summary ---
Author Organization [facility] Address [address] [place] [address] Care Team Providers Care Infection Prevention Specialist Name Role Phone Phu Anand MD Unavailable [phone] hPu Anand MD Primary Care Provider [phone] Mary Almonte LPN Unavailable Allergies Active AllergyReactionsCriticalityNoted DateCommentsCholecalciferolItchingMedium 12/11/2024 Medications MedicationSigDispense QuantityRefillsLast FilledStart DateEnd DateStatus triamcinolone (Kenalog) 0.025 % cream Indications:DermatitisApply topically 2 (two) times a day 30 g 4Active Glucose Blood (Blood Glucose Test) strip Indications:Type 2 diabetes mellitus with other specified complication, without long-term current use of insulin (HCC)1 each by In Vitro route Daily 100 strip 5Active Lancets 30G misc Indications:Type 2 diabetes mellitus with other specified complication, without long-term current use of insulin (HCC)1 each Daily 100 each 5Active allopurinol (Zyloprim) 100 MG tablet Indications:Elevated uric acid in bloodTake 1 tablet (100 mg) by mouth every other day 45 tablet 5Active triamterene-hydrochlorothiazide (Maxzide-25) 37.5-25 MG tablet Indications:Essential hypertensionTake 1 tablet by mouth in the morning. 90 tablet 5Active carvedilol (Coreg) 25 MG tablet Indications:Essential hypertensionTake 1 tablet (25 mg) by mouth in the morning and 1 tablet (25 mg) in the evening. Take with meals.Take with food. 180 tablet 5Active Active Problems ProblemNoted DateDiagnosed DateMixed lmiasswiqticrw93/25/2025Actinic keratosis 12/06/20226796Qbwkrbjarcl25/28/2023enign hypertensive heart and kidney disease with chronic kidney qkahvkd5812/06/2022Elevated alkaline phosphatase level12/06/2022 Elevated myoglobin level12/06/2022Elevated uric acid in blood12/06/2022Estrogen msigmxbtqd53/28/2023astro-esophageal reflux disease without esophagitis 12/06/20229207Fvoepfwjvchsz76/28/2023Idiopathic gout12/06/2022Localized osteoporosis of [place]jeujd06/28/2023Lumbar degenerative disc cmpmwnt5512/06/2022Menopausal and postmenopausal gkupciad42/28/2023Migraine without aura, not dowhsankzk43/28/2023 Morbid lnnoevn7212/06/2022Other lxjbpmn4812/06/2022eripheral polyneuropathy 12/06/2022hronic kidney disease, stage 3b12/06/2022Vitamin D deficiency 12/06/2022 Resolved Problems ProblemNoted DateDiagnosed DateResolved DateChronic kidney disease, stage 4 (severe)/Dermatitis mskadzcpvbcoa35/28/202310/MI 35.0-35.9,adult/Pure bcxytpetfecaauctvlys98/28/202303/ Essential hypertension, cxkhje49 Encounters DateTypeDepartmentCare SndtIhuxzptsxhv48/12/2025Patient Outreach [facility] [address] [place] [address] Mary Almonte LPN 02/05/2025bstract [facility] [address] [facility] [address] [place] [address] Phu Anand MD 01/30/2025 1:30 PM EDTOffice Visit [facility] [address] [place] [address] Nancy Donald PA Medicare annual wellness visit, subsequent (Primary Dx); ACP (advance care planning); Essential hypertension; Actinic keratosis; Atelectasis; 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, stage 1 through stage 4 or unspecified chronic kidney disease, without heart failure; Elevated alkaline phosphatase level; Elevated myoglobin level; Elevated uric acid in blood; Estrogen deficiency; Gastro-esophageal reflux disease without esophagitis; Hypercalcemia; Idiopathic chronic gout of multiple sites without tophus; Localized osteoporosis of [place]; Degeneration of intervertebral disc of lumbar region with discogenic back pain; Menopausal and postmenopausal disorder; Migraine without aura, not refractory; Morbid obesity ([facility] Other rosacea; Peripheral polyneuropathy; Chronic kidney disease, stage 3b ([facility]); Vitamin D deficiency; Mixed ulrbqdhmfsycjq01/22/2025amboo flowsheet [facility] [address] [facility] [address] [place] [address] Nancy Donald PA 01/30/20259289Pjhpoq01/29/2025Patient Outreach [facility] [address] [place] [address] Mary Almonte LPN from Last 3 Months Immunizations ImmunizationAdministration DatesNext DueInfluenza, High Dose Seasonal, Preservative Free01/29/2020,02/07/2019Influenza, seasonal, intradermal, preservative free01/20/2003Pneumococcal Polysaccharide GWJD045105/15/2018Tdap 10/03/2013 Family History RelationNameStatusCommentsFatherDeceasedMotherDeceased Social History Tobacco UseTypesPacks/DayYears UsedDateSmoking Tobacco: NeverSmokeless Tobacco: Never Tobacco Cessation:Counseling Given: Not Answered Alcohol UseStandard Drinks/WeekCommentsNever0 (1 standard drink = 0.6 oz pure alcohol)B1300 Health LiteracyAnswerDate RecordedHow often do you need to have someone help you when you read instructions, pamphlets, or other written material from your doctor or pharmacy?Qcpjof4504/06/2024Humiliation, Afraid, Rape, and Kick questionnaireAnswerDate RecordedWithin the last year, have you been afraid of your partner or ex-partner?No04/06/2024Within the last year, have you been humiliated or emotionally abused in other ways by your partner or ex-partner?No04/06/2024Within the last year, have you been kicked, hit, slapped, or otherwise physically hurt by your partner or ex-partner?No04/06/2024Within the last year, have you been raped or forced to have any kind of sexual activity by your partner or ex-partner?No04/06/2024Social Connection and Isolation Panel AnswerDate RecordedIn a typical week, how many times do you talk on the phone with family, friends, or neighbors?More than three times a week04/06/2024How often do you get together with friends or relatives?More than three times a week 04/06/2024How often do you attend zoroastrian or restoration services?1 to 4 times per year04/06/2024o you belong to any clubs or organizations such as zoroastrian groups, unions, fraternal or athletic groups, or school groups?No04/06/2024How often do you attend meetings of the clubs or organizations you belong to?More than 4 times per year04/06/2024re you , , , , never , or living with a partner?Jgrkzso6904/06/2024UDIT-CAnswerDate RecordedQ1: How often do you have a drink containing alcohol?Never04/06/2024Q2: How many drinks containing alcohol do you have on a typical day when you are drinking? Patient does not drink04/06/2024Q3: How often do you have six or more drinks on one occasion?Never04/06/2024Overall Financial Resource Strain (CARDIA)AnswerDate RecordedHow hard is it for you to pay for the very basics like food, housing, medical care, and heating?Not hard at all04/06/2024HQ-2AnswerDate Recorded Patient Health Questionnaire-2 [facility] - Occupational Stress QuestionnaireAnswerDate RecordedDo you feel stress - tense, restless, nervous, or anxious, or unable to sleep at night because your mind is troubled all the time - these days?Not at all04/06/2024Exercise Vital SignAnswerDate RecordedOn average, how many days per week do you engage in moderate to strenuous exercise (like a brisk walk)?0 days04/06/2024On average, how many minutes do you engage in exercise at this level?0 min04/06/2024Hunger Vital SignAnswerDate RecordedWithin the past 12 months, you worried that your food would run out before you got the money to buymore.Never true04/06/2024 Within the past 12 months, the food you bought just didn't last and you didn't have money to get more.Never true04/06/2024RAPARE - TransportationAnswerDate RecordedIn the past 12 months, has lack of transportation kept you from medical appointments or from getting medications?No04/06/2024In the past 12 months, has lack of transportation kept you from meetings, work, or from getting things needed for daily living?No04/06/2024Housing Stability Vital SignAnswerDate RecordedIn the last 12 months, was there a time when you were not able to pay the mortgage or rent on time?No04/06/2024In the past 12 months, how many times have you moved where you were living?t any time in the past 12 months, were you homeless or living in a fdc (including now)?No04/06/2024 CommentsUnknownSex and Gender InformationValueDate RecordedSex Assigned at BirthNot on fileLegal OwsGpssxr51/15/2023 6:35 PM EDTGender IdentityNot on fileSexual OrientationNot on file Last Filed Vital Signs Vital SignReadingTime TakenCommentsBlood Zyriwssq168/7810 1:49 PM EDT Bszqv837301/30/2025 1:38 PM EDTTemperature--Respiratory Qzoc1469 1:38 PM EDTOxygen Gddsxpybli94%01/30/2025 1:38 PM EDTInhaled Oxygen Concentration-- Aeuwqs190 kg (223 lb 12.8 oz)01/30/2025 1:38 PM CJLNtvtxw196.1 cm (5' 5 ) 01/30/2025 1:38 PM EDTBody Mass Index37.241 1:38 PM EDT Plan of Treatment Health MaintenanceDue DateLast DoneCommentsDiabetes: Retinopathy Screening 1946Diabetes: Hemoglobin A1C, 07/02/2024, 07/29/2017 Influenza Vaccine (#1), 02/07/2019, 01/20/2003Postponed from 12/10/2024 (Patient Refused)Diabetes: Urine Protein Mlojwpcxk80/01/2026 10/09/2024Medicare Annual Wellness (AWV), 01/10/2024, 06/02/2021neumococcal Vaccine: 65+ Years (2 of 2 - PCV) Postponed from 03/14/2020 (Patient Refused) Procedures Procedure NamePriorityDate/TimeAssociated DiagnosisCommentsMICROALBUMIN / CREATININE URINE LAALXZnnqyrb29/01/2025 1:34 PM EDT Type 2 diabetes mellitus with other specified complication, without long-term current use of insulin (HCC) POCT GLYCATED HEMOGLOBIN, OIUIDDrkersv79/30/2025 3:02 PM EDT Type 2 diabetes mellitus with other specified complication, without long-term current use of insulin (HCC) from Last 3 Months or Most Recently Relevant to Health Maintenance Results * Microalbumin / creatinine, urine ratio (10/09/2024 1:34 PM EDT)ComponentValue Ref RangeTest MethodAnalysis TimePerformed AtPathologist SignatureCREATININE, RANDOM [id number] - 275 mg/dLQUESTALBUMIN, URINE2.0See Note: mg/dLQUEST Comment: Reference Range: Reference Range Not established ALBUMIN/CREATININE RATIO, RANDOM URINE19<30 mg/g creatQUESTComment: The ADA defines abnormalities in albumin excretion as follows: Albuminuria Category ?Result (mg/g creatinine) Normal to Mildly increased <30 Moderately increased ? 30-299 Severely increased > OR = 300 The ADA recommends that at least two of three specimens collected within a 3-6 month period be abnormal before considering a patient to be within a diagnostic category. Specimen (Source)Anatomical Location / LateralityCollection Method / Volume Collection TimeReceived TimeUrineUrine specimen obtained by clean catch procedure / Ooysnjg9210/09/2024 1:34 PM EDT10/09/2024 1:35 PM EDT Narrative Resulting Agency Comment Performing Organization Information ?Site ID: [id number] ?Name: [facility] ?Address: [address] [place] [address], [address] [place] [id number] ?Director: Brandon Browning MD Authorizing ProviderResult TypeResult StatusNancy Donald PALAB URINE ORDERABLESFinal ResultPerforming OrganizationAddressCity/State/ZIP CodePhone Number [facility] * (ABNORMAL) POCT Glycated hemoglobin, total (10/08/2024 3:02 PM EDT)Component ValueRef RangeTest MethodAnalysis TimePerformed AtPathologist Signature Hemoglobin A1C6.3Specimen (Source)Anatomical Location / LateralityCollection Method / VolumeCollection TimeReceived IdvhIzmup60/30/2025 3:02 PM EDT Narrative Authorizing ProviderResult TypeResult StatusNancy Donald PAPOINT OF CARE TEST ENTER/EDIT ORDERABLESFinal Result from Last 3 Months or Most Recently Relevant to Health Maintenance Insurance Advance Directives TypeDate RecordedPatient RepresentativeExplanationPower of Attorney07/05/2024 4:04 PMHealthcare Power of AttorneyAdvance Directives and Living Will07/05/2024 4:03 PMLiving Will Declaration Care Teams Team MemberRelationshipSpecialtyStart DateEnd Date Phu Anand MD [address] [facility] [address] [place] [address] PCP - ACO Reach09/02/22 Phu Anand MD [address] [facility] [address] [place] [address] PCP - GeneralInternal Medicine08/17/22 Mary Almonte LPN [address] [facility] [address] [place] [address] 06/29/24
--- OUTSIDE RECORDS SUMMARY | 2025-04-08 06:45 | XMS_ITS | CCD ---
Author Organization [facility] Care Team Providers Care Wool Tamper Name Role Phone MATT, DR BUENO Admitting Unavailable MATT, DR BUENO Primary Care Unavailable [...] Unavailable ZIEBER, DR CHLOE [employer] Unavailable HEMMER, DR NANCY Rangel Attending Unavailable HEMMER, DR NANCY Rangel Consulting Unavailable MATT, DR BUENO Primary Care Unavailable ANAND, DR BUENO Consulting Unavailable ANAND, DR BUENO Attending Unavailable ANAND, DR BUENO Admitting Unavailable ZIEBER, DR CHLOE [employer] Unavailable Nicole, Flor Unavailable Phu Anand MD Unavailable [phone] Phu Anand MD Primary Care Provider [place] [employer] COMPENS[employer] SPECIALIST, Mary Unavailable Unavailable [place] WORK[employer] COMPENSATION SPECIALIST, Mary Unavailable NANCY MUELLER Attending Unavailable HEMNANCY HIDALGO Attending Unavailable HEMNANCY HIDALGO Attending Unavailable HEMMERNANCY Attending Unavailable HEMMERNANCY Attending Unavailable HEMMERNANCY Attending Unavailable HEMMER, NANCY Rangel Attending Unavailable Allergies Allergy ClassificationReported Allergen(s)Allergy TypeDate of OnsetReaction(s) Facility (16 sources)CephalexinDrug Dixqugg70-57-1611GxqwptyjhlvKTO[facility] (5 sources)CholecalciferolDrug Wnpjbsk81-17-3761CdbpquiDZFK [facility] Work Phone: Medications Current Medications MedicationDrug Class(es)DatesSig (Normalized)Sig (Original)Acetaminophen (1 source)Acetaminophen Activeallopurinol 100 mg oral tablet (20 sources)Xanthine Oxidase InhibitorStart: 01-12-2022 End: 51-53-6717rvsd 1 tablet by mouth every other dayallopurinol (Zyloprim) 100 MG tablet Indications: Elevated uric acid in blood Take 1 tablet (100 mg) by mouth every other day 45 tablet 3 12/11/2024 Activecephalexin 500 mg oral capsule (2 sources)Cephalosporin AntibacterialStart: 12-07-2024 End: 82-58-2562vdvtpflyup (Keflex) 500 MG capsule Take 500 mg by mouth in the morning and 500 mg at noon and 500 mg in the evening and 500 mg before bedtime. 12/07/2024 12/13/2024 Activefluticasone propionate 0.05 mg/actuat metered dose nasal spray (1 source)CorticosteroidStart: 16-58-1449komj 2 spray(s) nasal route once daily Fluticasone Propionate 50 MCG/ACT 2 sprays Nasally Once a day for 14 day(s) August, Activetriamcinolone acetonide 0.25 mg/ml topical cream (20 sources)CorticosteroidStart: 23-70-2731lagmdviifogdg (Kenalog) 0.025 % cream Indications: Dermatitis Apply topically 2 (two) times a day 30 g 2 11/16/2023 ActiveTriamterene-HCTZ (1 source)Triamterene-HCTZ Active Completed/Discontinued Medications MedicationDrug Class(es)DatesSig (Normalized)Sig (Original)Albuterol Sulfate (2.5 MG/ 3 ML) 2.5 MG/3ML 0.083% Nebulization Solution (1 source)Start: 87-14-8923Rztihmccf Sulfate (2.5 MG/ 3 ML) 2.5 MG/3ML 0.083% Nebulization Solution 3ml as needed Inhalation 4times a day Mar, Not-TakingBlood Glucose Monitoring Suppl (Blood Glucose Monitor System) w/Device kit (8 sources)Start: 07-05-2024 End: 99-37-6766Xaajh Glucose Monitoring Suppl (Blood Glucose Monitor System) w/Device kit Indications: Type 2 diabetes mellitus with other specified complication, without long-term current use of insulin (HCC) 1 each Daily 1 kit 07/05/2024 10/08/2024 DiscontinuedStart: 52-54-4655Glheg Glucose Monitoring Suppl (Blood Glucose Monitor System) w/Device kit Indications: Type 2 diabetes mellitus with other specified complication, without long-term current use of insulin (HCC) 1 each Daily 1 kit 07/05/2024 ActiveStart: 89-65-0842Rblxl Glucose Monitoring Suppl (Blood Glucose Monitor System) w/Device kit Indications: Type 2 diabetes mellitus with other specified complication, without long-term current use of insulin 1 each Daily 1 kit 07/05/2024 ActiveStart: 94-74-4501Mfong Glucose Monitoring Suppl (Blood Glucose Monitor System) w/Device kit Indications: Type 2 diabetes mellitus with other specified complication, without long-term current use of insulin ([facility]/HCC) 1 each Daily 1 kit 07/05/2024 Active carvedilol 25 mg oral tablet (20 sources)alpha-Adrenergic Shyam, beta-Adrenergic BlockerStart: 11-16-2023 End: 21-77-6736yded 1 tablet by mouth in the morningcarvedilol (Coreg) 25 MG tablet Indications: Essential hypertension Take 1 tablet (25 mg) by mouth in the morning and 1 tablet (25 mg) in the evening. Take with meals. Take with food.. 180 tablet 3 01/10/2024 01/30/2025 Discontinued (Reorder)Carvedilol Active cholecalciferol 0.05 mg oral capsule (15 sources)Vitamin DStart: 07-03-2024 End: 56-41-4412mydh 1 capsule by mouth once dailycholecalciferol (Vitamin D-3) 50 MCG (2000 UT) capsule Indications: Vitamin D deficiency Take 1 capsule (50 mcg) by mouth Daily 100 capsule 3 07/03/2024 12/11/2024 Discontinued (Side effects)Start: 11-25-2022 End: 24-93-4103xtco 1 capsule by mouth once dailycholecalciferol (Vitamin D-3) 125 MCG (5000 UT) capsule Indications: Vitamin D deficiency TAKE ONE CAPSULE BY MOUTH DAILY 90 capsule 11/25/2022 01/10/2024 Discontinued (Other) hydroCHLOROthiazide 25 mg / triamterene 37.5 mg oral tablet (20 sources)Potassium-sparing Diuretic, Thiazide DiureticStart: 03-29-2023 End: 81-07-6506fvhd 1 tablet by mouth in the morningtriamterene- hydrochlorothiazide (Maxzide-25) 37.5-25 MG tablet Indications: Essential hypertension Take 1 tablet by mouth in the morning. 100 tablet 3 01/10/2024 01/30/2025 Discontinued (Reorder)Naproxen (1 source)Nonsteroidal Anti-inflammatory DrugAleve Not-Takingoseltamivir 75 mg oral capsule (1 source)Neuraminidase InhibitorStart: 62-98-7473ohkp 1 capsule by mouth every twelve hoursTamiflu 75 MG 1 capsule Orally Twice a day for 5 day(s) Mar, Not-TakingPropranolol (1 source)beta-Adrenergic BlockerPropranolol HCl Not-Taking Problems Active Problems Problem ClassificationProblemDateDocumented DateEpisodic/Chronic Administrative/social admission (4 sources)Patient encounter status; Translations: [Other specified counseling] 05-32-6109PyptnsmdVuzxlfb kidney disease (20 sources)Chronic kidney disease stage 3B ; Translations: [Stage 3b chronic kidney disease (HCC)]Onset: 12-06-2022 Resolved: 948677-48-3398YirrwvcQqjzxjeo mellitus with complications (6 sources)Type 2 diabetes mellitus; Translations: [Type 2 diabetes mellitus with other specified complication]35-34-3895LfpwrqxBbrdbkrj mellitus without complication (1 source)Impaired fasting glycemia; Translations: [Impaired fasting glucose] 94-39-2362ThcvilzuGnptmjdwv of lipid metabolism (20 sources)Pure hypercholesterolemia; Translations: [Pure hypercholesterolemia, unspecified]Onset: 12-06-2022 Resolved: 490128-12-4471JhswnfeXxgzpcvjeq disorders (20 sources)Gastroesophageal reflux disease without esophagitis; Translations: [Gastro-esophageal reflux disease without esophagitis]Onset: 12-06-2022 97-06-2892FyvlscpSvorevyxw hypertension (20 sources)Essential hypertension; Translations: [Essential (primary) hypertension]Onset: 10-24-2007 Resolved: 920047-95-3132FlrfptxIttf and other crystal arthropathies (20 sources)Primary gout; Translations: [Idiopathic gout, unspecified site] Onset: 782272-50-6086CjsucxeHalfpjef; including migraine (20 sources)Migraine without aura, not refractory ; Translations: [Migraine without aura, not intractable, without status migrainosus]Onset: 12-06-2022 10-93-1274QgwqgprQssjxlgpublt with complications and secondary hypertension (20 sources)Hypertensive chronic kidney disease with stage 1 through stage 4 chronic kidney disease, or unspecified chronic kidney disease; Translations: [Benign hypertensive heart AND renal disease]Onset: hronic Menopausal disorders (20 sources)Other primary ovarian failure; Translations: [Decreased estrogen level]Onset: 08-46-3968KbpvrvtKcpqvx and vomiting (5 sources)Nausea; Translations: [Nausea]Onset: 43-84-3090XbwqtogxPcjsewumcig deficiencies (20 sources)Vitamin D deficiency; Translations: [Vitamin D deficiency, unspecified]Onset: 775455-64-5467VhgweksYaklgccarnaf (20 sources)Localized osteoporosis - [place]; Translations: [Localized osteoporosis [[place]]]Onset: 162755-90-6788MhcugtbXrvkl bone disease and musculoskeletal deformities (1 source)Other specified disorders of bone density and structure, unspecified site; Translations: [OTH D/O BONE DEN STRUCT UNS SITE]Onset: 32-32-2083Eetzknhr Other connective tissue disease (4 sources)Pain in right foot; Translations: [PAIN IN RIGHT FOOT]Onset: 37-61-9735AmdvmcgtRladf connective tissue disease (1 source)Other specified soft tissue disorders; Translations: [OTHER SPEC SOFT TISSUE DISORDERS]Onset: 07-98-2483JvnidyzqDqrnb connective tissue disease (1 source)Pain in left lower limb; Translations: [Pain in left leg]03-07-2024 EpisodicOther diseases of veins and lymphatics (1 source)Compression of vein; Translations: [COMPRESSION OF VEIN]Onset: 83-98-5508SkzhskwhQlspx inflammatory condition of skin (20 sources)Rosacea; Translations: [Other rosacea]Onset: ChronicOther liver diseases (20 sources)Alkaline phosphatase raised; Translations: [Abnormal levels of other serum enzymes]Onset: 596364-33-4278SohoayzzThefw nervous system disorders (20 sources)Polyneuropathy; Translations: [Polyneuropathy, unspecified]Onset: 190138-17-8568IogbdazKevhq nutritional; endocrine; and metabolic disorders (20 sources)Hypercalcemia; Translations: [Hypercalcemia]Onset: 12-06-2022 35-77-9399BgnnnnyBedvq nutritional; endocrine; and metabolic disorders (20 sources)Morbid obesity; Translations: [Morbid (severe) obesity due to excess calories]Onset: 596331-63-5577IsofbuvVjlxo nutritional; endocrine; and metabolic disorders (20 sources)Blood urate raised; Translations: [Hyperuricemia without signs of inflammatory arthritis and tophaceous disease]Onset: EpisodicOther screening for suspected conditions (not mental disorders or infectious disease) (20 sources)Abnormal presence of myoglobin; Translations: [Abnormal histological findings in specimens from other organs, systems and tissues]Onset: 12-06-2022 42-38-9588XrtercllJfnlz skin disorders (20 sources)Actinic keratosis; Translations: [Actinic keratosis]Onset: 415698-21-7221MsliefkdKndfc upper respiratory disease (1 source)Allergic rhinitis; Translations: [Allergic rhinitis, unspecified] ChronicOther upper respiratory disease (1 source)Allergic rhinitis, unspecifiedOnset: 09-02-2021 Resolved: 06-93-6222BlgamldTuipqlhj; pneumothorax; pulmonary collapse (20 sources)Atelectasis; Translations: [Atelectasis]Onset: EpisodicSkin and subcutaneous tissue infections (2 sources)Cellulitis of left hand; Translations: [Cellulitis of left upper limb]01-82-3033QbfxdhsxXzhsrumziak; intervertebral disc disorders; other back problems (20 sources)Degeneration of lumbar intervertebral disc; Translations: [Lumbar degenerative disc disease]Onset: 927390-32-0770IrvlbfkJsdkxopmcser (1 source)CHRN KIDNEY DISEASE STG 3 UNSP; Translations: [CHRN KIDNEY DISEASE STG 3 UNSP]Onset: 07-09-2020 Past or Other Problems Problem ClassificationProblemDateDocumented DateEpisodic/ChronicMood disorders (19 sources)Mood disordersOnset: 01-10-2024 Resolved: Other inflammatory condition of skin (20 sources)Dermatitis herpetiformis; 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] Onset: 12-06-2022 Resolved: 444100-28-2615GlvousxHjosf nutritional; endocrine; and metabolic disorders (20 sources)Body mass index 30+ - obesity; Translations: [Obesity, unspecified] Onset: 12-06-2022 Resolved: 818271-46-0097QbyyrmpWgugjusm codes; unclassified (4 sources)Localized edema; Translations: [LOCALIZED EDEMA]Onset: 07-01-2020 Episodic Results Test NameValueInterpretationReference RangeFacilityALBUMIN, RANDOM URINE W/CREATININEon 04-96-0030TCWDSXK, URINE2.0 mg/dLNormalSee Note:[facility] Comment on above:Result Comment: Reference Range: Reference Range Not establishedPerformed By: #### [id number] #### [facility] [address], [address] [place] [address] : Brandon Browning MDALBUMIN/CREATININE RATIO, RANDOM URINE19 mg/g creatNormal<30Quest DiagnosticsComment on above:Result Comment: The ADA defines abnormalities in albumin excretion as follows: Albuminuria Category Result (mg/g creatinine) Normal to Mildly increased <30 Moderately increased 30-299 Severely increased > OR = 300 The ADA recommends that at least two of three specimens collected within a 3-6 month period be abnormal before considering a patient to be within a diagnostic category.Performed By: #### 6517 #### [facility] [address], [address] [place], [place] [id number] : Brandon Browning MDCreatinine (U) [Mass/Vol]105 mg/mINymwol06-487 [facility]osticsComment on above:Performed By: #### 6517 #### [facility] [address], [address] [place], [place] [id number] : Brandon Browning MDLaboratory - Hematology and Cell countson 37-36-9695VcH1i (Bld) [Mass fraction]6.3 %[facility]No Panel Informationon 97-33-2151Vqscrueavsrwtx and review of laboratory resultsAbCommunity HealthCBC (INCLUDES DIFF/PLT)on 49-73-1556Awwddoauy (Bld) [#/Vol]0.028 10*3/uLNormal0-200Quest DiagnosticsComment on above:Performed By: #### 496, 54555, 7600, 905, 21567, 6399 #### [facility] of [address], [address] [place] [address] : Brandon Browning MDBasophils/100 WBC (Bld)0.4 %NormalQuest DiagnosticsComment on above:Performed By: #### 496, 46301, 7600, 905, 59945, 6399 #### [facility] of [address], [address] [place] [address] : Brandon Browning MDEosinophils (Bld) [#/Vol]0.186 10*3/uLNormal 15-500Quest DiagnosticsComment on above:Performed By: #### 496, 10550, 7600, 905, 92156, 6399 #### [facility] of [address], [address] [place] [address] : Brandon Browning MDEosinophils/100 WBC (Bld)2.7 %NormalQuest DiagnosticsComment on above:Performed By: #### 496, 92799, 7600, 905, 89923, 6399 #### [facility] of [address], [address] [place] [address] : Brandon Browning MDErythrocyte distribution width (RBC) [Ratio] 13.9 %Mthjeg65.0-15.0Quest DiagnosticsComment on above:Performed By: #### 496, 60073, 7600, 905, 90280, 6399 #### [facility] of [address], [address] [place] [address] : Brandon Browning MDHematocrit (Bld) [Volume fraction]37.3 %Normal 35.0-45.0Quest DiagnosticsComment on above:Performed By: #### 496, 26351, 7600, 905, 36121, 6399 #### [facility] of [place] [address] : Brandon Browning MDHemoglobin (Bld) [Mass/Vol]12.5 g/dLNormal 11.7-15.5Quest DiagnosticsComment on above:Performed By: #### 496, 81339, 7600, 905, 72650, 6399 #### [facility] of [place] [address] : Brandon Browning MDLymphocytes (Bld) [#/Vol]2.346 10*3/uLNormal 850-3900Quest DiagnosticsComment on above:Performed By: #### 496, 63923, 7600, 905, 99823, 6399 #### [facility] of [place] [address] : Brandon Browning MDLymphocytes/100 WBC (Bld)34.0 %NormalQuest DiagnosticsComment on above:Performed By: #### 496, 62239, 7600, 905, 42005, 6399 #### [facility] of [place] [address] : Brandon Browning MDMCH (RBC) [Entitic mass]29.6 cjThfrlv42.0-33.0 [facility]osticsComment on above:Performed By: #### 496, 80387, 7600, 905, 88001, 6399 #### [facility] of [place] [address] : Brandon Browning MDMCHC (RBC) [Mass/Vol]33.5 g/cENbvrub92.0-36.0 [facility] DiagnosticsComment on above:Result Comment: For adults, a slight decrease in the calculated MCHC value (in the range of 30 to 32 g/dL) is most likely not clinically significant; however, it should be interpreted with caution in correlation with other red cell parameters and the patient's clinical condition.Performed By: #### 496, 54264, 7600, 905, 79680, 6399 #### [facility] of [place] [address] : Brandon MCQUEENCV (RBC) [Entitic vol]88.2 zVFfmned01.0-100.0 [facility]osticsComment on above:Performed By: #### 496, 42012, 7600, 905, 48203, 6399 #### [facility] of [place] [address] : Brandon Browning MDMonocytes (Bld) [#/Vol]0.49 10*3/uLNormal 200-950Quest DiagnosticsComment on above:Performed By: #### 496, 33544, 7600, 905, 28887, 6399 #### [facility] of [place] [address] : Brandon MCQUEENonocytes/100 WBC (Bld)7.1 %NormalQuest DiagnosticsComment on above:Performed By: #### 496, 89220, 7600, 905, 71793, 6399 #### [facility] of [place] [address] : Brandon Browning MDNeutrophils (Bld) [#/Vol]3.85 10*3/uLNormal 1500-7800Quest DiagnosticsComment on above:Performed By: #### 496, 16141, 7600, 905, 30361, 6399 #### [facility] of [place] [address] : Brandon Browning MDNeutrophils/100 WBC (Bld)55.8 %NormalQuest DiagnosticsComment on above:Performed By: #### 496, 13066, 7600, 905, 39777, 6399 #### [facility] of [address], [address] [place] [address] : Brandon MATTSONlateludwig mean volume (Bld) [Entitic vol]11.2 fLNormal7.5-12.5Quest DiagnosticsComment on above:Performed By: #### 496, 01117, 7600, 905, 09835, 6399 #### [facility] of [address], [address] [place] [address] : Brandon Browning MDPlatelets (Bld) [#/Vol]257 10*3/uLNormal 140-400Quest DiagnosticsComment on above:Performed By: #### 496, 14297, 7600, 905, 49184, 6399 #### [facility] of [address], [address] [place] [address] : Brandon Browning MDRBC (Bld) [#/Vol]4.23 10*6/uLNormal3.80-5.10 [facility]osticsComment on above:Performed By: #### 496, 24088, 7600, 905, 09998, 6399 #### [facility] of [address], [address] [place] [address] : Brandon Browning MDWBC (Bld) [#/Vol]6.9 10*3/uLNormal3.8-10.8 [facility]osticsComment on above:Performed By: #### 496, 32938, 7600, 905, 80500, 6399 #### [facility] of [address], [address] [place] [address] : Brandon Browning MDCOMPREHENSIVE METABOLIC PANELon 07-04-2024 Albumin [Mass/Vol]4.1 g/dLNormal3.6-5.1Quest DiagnosticsComment on above: Performed By: #### 496, 39823, 7600, 905, 26419, 6399 #### [facility] of [address], [address] [place] [address] : Brandon Browning MDAlbumin/Globulin [Mass ratio]1.8 {ratio}Normal 1.0-2.5Quest DiagnosticsComment on above:Performed By: #### 496, 81593, 7600, 905, 80216, 6399 #### [facility] of [address], [address] [place] [address] : Brandon Browning MDALP [Catalytic activity/Vol]83 U/PFbtdtl47-994 [facility]osticsComment on above:Performed By: #### 496, 23618, 7600, 905, 11942, 6399 #### [facility] of [address], [address] [place] [address] : Brandon Browning MDALT [Catalytic activity/Vol]15 U/LNormal6-29 [facility]osticsComment on above:Performed By: #### 496, 76655, 7600, 905, 67833, 6399 #### [facility] of [address], [address] [place] [address] : Brandon Browning MDAST [Catalytic activity/Vol]11 U/JLvkhuc95-02 [facility]osticsComment on above:Performed By: #### 496, 46035, 7600, 905, 17442, 6399 #### [facility] of [address], [address] [place] [address] : Brandon Browning MDBilirubin [Mass/Vol]0.6 mg/dLNormal0.2-1.2 [facility]osticsComment on above:Performed By: #### 496, 54452, 7600, 905, 54238, 6399 #### [facility] of [address], [address] [place] [address] : Brandon Browning MDCalcium [Mass/Vol]10.8 mg/dLHigh8.6-10.4Quest DiagnosticsComment on above:Performed By: #### 496, 01339, 7600, 905, 82909, 6399 #### [facility] [place] [address] : Brandon Browning MDChloride [Moles/Vol]104 mmol/IMtcwzo89-323 [facility]osticsComment on above:Performed By: #### 496, 72950, 7600, 905, 26678, 6399 #### [facility] [place] [address] : Brandon Browning MDCO2 [Moles/Vol]27 mmol/ZVjzhyt59-05Xzvvk DiagnosticsComment on above:Performed By: #### 496, 33900, 7600, 905, 81408, 6399 #### [facility] of [place] [address] : Brandon BRARreatinine [Mass/Vol]1.60 mg/dLHigh0.60-0.95 [facility]osticsComment on above:Performed By: #### 496, 93878, 7600, 905, 81625, 6399 #### [facility] [place] [address] : Brandon Browning MDGFR/1.73 sq M.predicted among non-blacks MDRD (S/P/Bld) [Vol rate/Area]31 mL/min/{1.73_m2}Low> OR = 60Quest DiagnosticsComment on above:Performed By: #### 496, 31710, 7600, 905, 97867, 6399 #### [facility] of [place] [address] : Brandon Browning MDGlobulin (S) [Mass/Vol]2.3 g/dLNormal1.9-3.7 [facility]osticsComment on above:Performed By: #### 496, 75053, 7600, 905, 69120, 6399 #### [facility] [place] [address] : Brandon Browning MDGlucose [Mass/Vol]141 mg/jQBrrc94-92Iapph DiagnosticsComment on above:Result Comment: Fasting reference interval For someone without known diabetes, a glucose value >125 mg/dL indicates that they may have diabetes and this should be confirmed with a follow-up test.Performed By: #### 496, 40518, 7600, 905, 79347, 6399 #### [facility] [place] [address] : Brandon Browning MDPotassium [Moles/Vol]5.1 mmol/LNormal3.5-5.3 [facility]osticsComment on above:Performed By: #### 496, 17755, 7600, 905, 32399, 6399 #### [facility] [place] [address] : Brandon Browning MDProtein [Mass/Vol]6.4 g/dLNormal6.1-8.1Quest DiagnosticsComment on above:Performed By: #### 496, 90032, 7600, 905, 79957, 6399 #### [facility] [place] [address] : Brandon Browning MDSodium [Moles/Vol]141 mmol/BEjnpxm124-760Avhvx DiagnosticsComment on above:Performed By: #### 496, 04846, 7600, 905, 81633, 6399 #### [facility] [place] [address] : Brandon Browning MDUrea nitrogen [Mass/Vol]31 mg/dLHigh7-25Quest DiagnosticsComment on above:Performed By: #### 496, 95290, 7600, 905, 61825, 6399 #### [facility] [address], [address] [place] [address] : Brandon Browning MDUrea nitrogen/Creatinine [Mass ratio]19 mg/mg Normal6-22Quest DiagnosticsComment on above:Performed By: #### 496, 25610, 7600, 905, 43974, 6399 #### [facility] [address], [address] [place] [address] : Brandon Browning MDHEMOGLOBIN A1con 11-13-0006ACALNDJJHA A1c7.1 % of total HgbHigh<5.7Quest DiagnosticsComment on above:Result Comment: For someone without known diabetes, a [...] hemoglobin A1c for diagnosis of diabetes for children.Performed By: #### 496, 88582, 7600, 905, 45339, 6399 #### [facility] [address], [address] [place] [address] : Brandon Browning MDLIPID PANEL, STANDARDon 14-60-0560Ytufqlxrjuh [Mass/Vol]270 mg/dLHigh<200Quest DiagnosticsComment on above:Order Comment: FASTING:YES FASTING: YESPerformed By: #### 496, 95157, 7600, 905, 25331, 6399 #### [facility] [address], [address] [place] [address] : Brandon BARRholesterol in HDL [Mass/Vol]42 mg/dLLow> OR = 50Quest DiagnosticsComment on above:Order Comment: FASTING:YES FASTING: YESPerformed By: #### 496, 13723, 7600, 905, 29757, 6399 #### [facility] [address], [address] [place] [address] : Brandon Hsusteromathew.total/Cholesterol in HDL [Mass ratio]6.4 {ratio}High<5.0Quest DiagnosticsComment on above:Order Comment: FASTING:YES FASTING: YESPerformed By: #### 496, 04852, 7600, 905, 65343, 6399 #### [facility] [address], [address] [place] [address] : Brandon Browning MDLDL-CHOLESTEROLNormalQuest DiagnosticsComment on above:Order Comment: FASTING:YES FASTING: YESResult Comment: LDL cholesterol not calculated. Triglyceride levels greater than 400 mg/dL invalidate calculated LDL results. Reference range: <100 Desirable range <100 mg/dL for primary prevention; <70 mg/dL for patients with CHD or diabetic patients with > or = 2 CHD risk factors. LDL-C is now calculated using the Pina calculation, which is a validated novel method providing better accuracy than the Friedewald equation in the estimation of LDL-C. Kamran PARKINSON et al. JAKY. 2013;310(19): 5662-5417 (http://education.[employer]/faq/MPL915)Performed By: #### 496, 24721, 7600, 905, 15958, 6399 #### [facility] [address], [address] [place] [address] : Brandon MEDINA HDL RHYOFFHVLTX406 mg/dL (calc)High<130 [facility]osticsComment on above:Order Comment: FASTING:YES FASTING: YESResult Comment: Non-HDL level > or = 220 [...] of <70 mg/dL) is considered a therapeutic option.Performed By: #### 496, 36150, 7600, 905, 73282, 6399 #### [facility] [address], [address] [place] [address] : Brandon Browning MDTriglyceride [Mass/Vol]466 mg/dLHigh<150Quest DiagnosticsComment on above:Order Comment: FASTING:YES FASTING: YESResult Comment: If a non-fasting specimen was collected, consider repeat triglyceride testing on a fasting specimen if clinically indicated. Rae et al. J. of Clin. Lipidol. 2015;9:129-169.Performed By: #### 496, 86417, 7600, 905, 63917, 6399 #### [facility] [address], [address] [place] [address] : Brandon Browning MDTEST AUTHORIZATIONon [id number] CONTACT: NANCY MUELLER/IVANormalQuest DiagnosticsComment on above:Performed By: #### 496, 02176, 7600, 905, 42387, 6399 #### [facility] [address], [address] [place] [address] : Brandon Browning MDCOMMENTNormalQuest DiagnosticsComment on above:Result Comment: Please have the ordering physician or his or her authorized inbound customer service representative sign a copy of this report and promptly return it by faxing it to: [phone] or by returning the form to your research manager.Performed By: #### 496, 04282, 7600, 905, 95706, 6399 #### [facility] [address], [address] [place] [address] : Brandon Browning MDREPORT ALWAYS MESSAGE SIGNATURENormalQuest DiagnosticsComment on above:Result Comment: The laboratory testing on this patient was verbally requested or confirmed by the ordering physician or his or her authorized inbound customer service representative after contact with an employee of [employer]. Federal regulations require that we maintain on file written authorization for all laboratory testing. Accordingly we are asking that the ordering physician or his or her authorized inbound customer service representative sign a copy of this report and promptly return it to the client associate. Signature: Performed By: #### 496, 41488, 7600, 905, 83285, 6399 #### [facility] [address], [address] [place] [address] : Brandon ADHIKARI CODE:[id number] DiagnosticsComment on above:Performed By: #### 496, 90418, 7600, 905, 43517, 6399 #### [facility] [place] [address] : Brandon ADHIKARI NAME:HEMOGLOBIN J1hDmhhdcDinyb DiagnosticsComment on above:Performed By: #### 496, 56503, 7600, 905, 72216, 6399 #### [facility] [place] [address] : Brandon VILLELA ACIDon 01-39-0668Rhbwa [Mass/Vol]8.5 mg/dLHigh2.5-7.0Quest DiagnosticsComment on above:Result Comment: Therapeutic target for gout patients: <6.0 mg/dLPerformed By: #### 496, 63100, 7600, 905, 71639, 6399 #### [facility] [place] [address] : Brandon Browning MDVITAMIN D,25-OH,TOTAL,IAon [id number] D,25-OH,TOTAL,IA24 ng/iWQwp04-120Cstiv DiagnosticsComment on above:Result Comment: Vitamin D Status 25-OH Vitamin D: Deficiency: <20 ng/mL Insufficiency: 20 - 29 ng/mL Optimal: > or = 30 ng/mL For 25-OH Vitamin D testing on patients on D2-supplementation and patients for whom quantitation of D2 and D3 fractions is required, the QuestAssureD(TM) 25-OH VIT D, (D2,D3), LC/MS/MS is recommended: order code 19659 (patients >2yrs). See Note 1 Note 1 For additional information, please refer to http://education.[employer]/faq/QGK168 (This link is being provided for informational/ educational purposes only.)Performed By: #### 496, 79436, 7600, 905, 02495, 6399 #### [facility] [address] [facility], [address] [place] [address] : Brandon CRUZ DEXA BONE DENSITYon [id number] DEXA BONE DENSITYEXAMINATION: XR DEXA BONE DENSITY, 06/11/2021 9:23 AM [...] Electronically authenticated by: JACINTO GUZMAN Date: 2021-06-11 10:[address] [address] HospitalComplete Blood Count with Auto Diffon 81-74-0401Ctllhqlfg (Bld) [#/Vol]0.03 10*3/uLNormal0.00-0.20[facility] [place] SpecialistComment on above:Performed By: #### URIC, CBCAD, VITD, ESR, CMP, LIPD #### [facility] [address] [place], [place] [id number]/100 WBC (Bld)0.3 %NormalNortveterans health administration [facility] phoenixn The Institute Of LivingComment on above:Performed By: #### URIC, CBCAD, VITD, ESR, CMP, LIPD #### [facility] [address] [place], [place] [id number] (Bld) [#/Vol]0.10 10*3/uLNormal0.02-0.50NoTriHealth SpecialistComment on above:Performed By: #### URIC, CBCAD, VITD, ESR, CMP, LIPD #### [facility] [address] [place], [place] [id number]/100 WBC (Bld)1.1 %NormalOhiohealth Arthur [facility] SpecialistComment on above:Performed By: #### URIC, CBCAD, VITD, ESR, CMP, LIPD #### [facility] [address] [place], [place] [id number] distribution width (RBC) [Ratio]14.0 %Normal 11.0-15.0[facility] SpecialistComment on above:Performed By: #### URIC, CBCAD, VITD, ESR, CMP, LIPD #### [facility] [address] [place], [place] [id number] (Bld) [Volume fraction]38.3 %Bcpchj12.0-47.0 [facility] SpecialistComment on above:Performed By: #### URIC, CBCAD, VITD, ESR, CMP, LIPD #### [facility] [address], [place] [id number] (Bld) [Mass/Vol]12.4 g/oTJbwice90.6-15.5[facility] SpecialistComment on above:Performed By: #### URIC, CBCAD, VITD, ESR, CMP, LIPD #### [facility] [address], [place] [id number] (Bld) [#/Vol]2.3 10*3/uLNormal0.9-3.9NoTriHealth SpecialistComment on above:Performed By: #### URIC, CBCAD, VITD, ESR, CMP, LIPD #### [facility] [address] [place], [place] [id number]/100 WBC (Bld)24.0 %NormalOhiohealth Arthur [facility], [facility] SpecialistComment on above:Performed By: #### URIC, CBCAD, VITD, ESR, CMP, LIPD #### [facility] [address] [place], [place] [id number] (RBC) [Entitic mass]28.4 qnZvazkg56.0-33.0[facility] SpecialistComment on above:Performed By: #### URIC, CBCAD, VITD, ESR, CMP, LIPD #### [facility] [address], [place] [id number] (RBC) [Mass/Vol]32.4 g/pGCifvhv48.0-36.0NoTriHealth SpecialistComment on above:Performed By: #### URIC, CBCAD, VITD, ESR, CMP, LIPD #### [facility] [address] [place], [place] [id number] (RBC) [Entitic vol]88 vCJmcsrf80-011Nubaygps [facility] SpecialistComment on above:Performed By: #### URIC, CBCAD, VITD, ESR, CMP, LIPD #### [facility] [address] [place], [place] [id number] (Bld) [#/Vol]1.0 10*3/uLHigh0.2-0.9NoTriHealth SpecialistComment on above:Performed By: #### URIC, CBCAD, VITD, ESR, CMP, LIPD #### [facility] [address] [place], [place] [id number]/100 WBC (Bld)10.2 %NormalNoTriHealth SpecialistComment on above:Performed By: #### URIC, CBCAD, VITD, ESR, CMP, LIPD #### [facility] [address] [place], [place] [id number] (Bld) [#/Vol]6.0 10*3/uLNormal1.5-7.8NoTriHealth SpecialistComment on above:Performed By: #### URIC, CBCAD, VITD, ESR, CMP, LIPD #### [facility] [address] [place], [place] [id number]/100 WBC (Bld)64.0 %NormalNoTriHealth SpecialistComment on above:Performed By: #### URIC, CBCAD, VITD, ESR, CMP, LIPD #### [facility] [address], [place] [id number] mean volume (Bld) [Entitic vol]11.00 fLNormal 7.50-12.50NoTriHealth SpecialistComment on above:Performed By: #### URIC, CBCAD, VITD, ESR, CMP, LIPD #### [facility] [address] [place], [place] [id number] (Bld) [#/Vol]241 10*3/yXDbtsdy299-346Uobvqzhm [facility] SpecialistComment on above:Performed By: #### URIC, CBCAD, VITD, ESR, CMP, LIPD #### [facility] [address] [place], [place] [id number] (Bld) [#/Vol]4.36 10*6/uLNormal3.90-5.20NortUniversity Hospitals [facility]ly[facility] SpecialistComment on above:Performed By: #### URIC, CBCAD, VITD, ESR, CMP, LIPD #### [facility] [address] [place], [place] [id number]-HM21.6 bZBplubb94.0-50.0NortUniversity Hospitals Elyria Medical CenterForms Designer Comment on above:Performed By: #### URIC, CBCAD, VITD, ESR, CMP, LIPD #### [facility] [address], [place] [id number] (Bld) [#/Vol]9.4 10*3/uLNormal3.8-11.0NortUniversity Hospitals Elyria Medical Center SpecialistComment on above:Performed By: #### URIC, CBCAD, VITD, ESR, CMP, LIPD #### [facility] [address] [place], [place] [id number] Metabolic Panelon 49-24-2336Itaptrm [Mass/Vol] 4.4 g/dLNormal3.6-5.1NortherLutheran Hospital SpecialistComment on above:Performed By: #### URIC, CBCAD, VITD, ESR, CMP, LIPD #### [facility] [address] [place], [place] [id number]/Globulin [Mass ratio]2.3 {ratio}Normal1.0-2.5NoTriHealth SpecialistComment on above:Performed By: #### URIC, CBCAD, VITD, ESR, CMP, LIPD #### [facility] [address] [place], [place] [id number] [Catalytic activity/Vol]122 U/VBzfl33-535Dfhrehtl [facility] SpecialistComment on above:Performed By: #### URIC, CBCAD, VITD, ESR, CMP, LIPD #### [facility] [address], [place] [id number] [Catalytic activity/Vol]10 U/LNormal6-33NoTriHealth SpecialistComment on above:Result Comment: 03/11/2021 Female reference range changed.Performed By: #### URIC, CBCAD, VITD, ESR, CMP, LIPD #### [facility] [address], [place] [id number] gap [Moles/Vol]20 mmol/YJjktvs15-28Ynrydrsi [facility] SpecialistComment on above:Result Comment: Effective 04/16/2019 reference range changed.Performed By: #### URIC, CBCAD, VITD, ESR, CMP, LIPD #### [facility] [address], [place] [id number] [Catalytic activity/Vol]9 U/LNormal9-34NoTriHealth SpecialistComment on above:Performed By: #### URIC, CBCAD, VITD, ESR, CMP, LIPD #### [facility] [address], [place] [id number] [Mass/Vol]0.75 mg/dLNormal0.30-1.20No[facility]Health SpecialistComment on above:Performed By: #### URIC, CBCAD, VITD, ESR, CMP, LIPD #### [facility] [address] [place], [place] [id number]/CREA22 RatioNormal6-22NoUSC [facility] Forms Designer Comment on above:Performed By: #### URIC, CBCAD, VITD, ESR, CMP, LIPD #### [facility] [address], [place] [id number] [Mass/Vol]11.2 mg/dLHigh8.6-10.2[facility] SpecialistComment on above:Performed By: #### URIC, CBCAD, VITD, ESR, CMP, LIPD #### [facility] [address] [place], [place] [id number] [Moles/Vol]103 mmol/ASmeqzm79-581Wfacosxt [facility] SpecialistComment on above:Performed By: #### URIC, CBCAD, VITD, ESR, CMP, LIPD #### [facility] [address], [place] [id number] [Moles/Vol]23 mmol/WCnxawf75-96Iupsodgf [facility] SpecialistComment on above:Performed By: #### URIC, CBCAD, VITD, ESR, CMP, LIPD #### [facility] [address], [place] [id number] [Mass/Vol]1.8 mg/dLHigh0.6-1.4NoTriHealth SpecialistComment on above:Performed By: #### URIC, CBCAD, VITD, ESR, CMP, LIPD #### [facility] [address] [place], [place] [id number] mL/min/1.90k0Aon>60NortOhioHealth [facility] Hospital Forms Designer Comment on above:Performed By: #### URIC, CBCAD, VITD, ESR, CMP, LIPD #### [facility] [address], [place] [id number] mL/min/1.25q0Sal>60NortOhioHealth Mansfield Hospital Forms Designer Comment on above:Performed By: #### URIC, CBCAD, VITD, ESR, CMP, LIPD #### [facility] [address], [place] [id number] (S) [Mass/Vol]1.9 g/dLNormal1.9-3.7NoTriHealth SpecialistComment on above:Performed By: #### URIC, CBCAD, VITD, ESR, CMP, LIPD #### [facility] [address] [place], [place] [id number] [Mass/Vol]110 mg/qKJanh78-73Rmbrinxx [facility] SpecialistComment on above:Result Comment: For FASTING Glucose --- ADA reference ranges: Normal 65-99 mg/dl Prediabetes 100-125 Diabetes >/= 126Performed By: #### URIC, CBCAD, VITD, ESR, CMP, LIPD #### [facility] [address], [place] [id number] [Moles/Vol]5.0 mmol/LNormal3.5-5.5NoTriHealth SpecialistComment on above:Performed By: #### URIC, CBCAD, VITD, ESR, CMP, LIPD #### [facility] [address] [place], [place] [id number] [Mass/Vol]6.3 g/dLNormal6.1-8.1NortherLutheran Hospital SpecialistComment on above:Performed By: #### URIC, CBCAD, VITD, ESR, CMP, LIPD #### [facility] [address] [place], [place] [id number] [Moles/Vol]142 mmol/UYbiozb079-943Dvamovbk [facility] SpecialistComment on above:Performed By: #### URIC, CBCAD, VITD, ESR, CMP, LIPD #### [facility] [address] [place], [place] [id number] nitrogen [Mass/Vol]38 mg/dLHigh7-25NoTriHealth SpecialistComment on above:Performed By: #### URIC, CBCAD, VITD, ESR, CMP, LIPD #### [facility] [address] [place], [place] [id number] Panelon 32-14-3375Wcsgsosjhlq [Mass/Vol]271 mg/dLHigh 125-200NoTriHealth SpecialistComment on above:Result Comment: Low risk < 200mg/dL Borderline risk 201-239 mg/dl High risk > or equal to 240Performed By: #### URIC, CBCAD, VITD, ESR, CMP, LIPD #### [facility] [address] [place], [place] [id number] in HDL [Mass/Vol]50 mg/dLNormal>40NortUniversity Hospitals Ely[facility] SpecialistComment on above:Result Comment: High Cardiovascular Risk HDL <40 mg/dL Low Cardiovascular Risk HDL > or equal to 60 mg/dlPerformed By: #### URIC, CBCAD, VITD, ESR, CMP, LIPD #### [facility] [address] [place], [place] [id number] in LDL [Mass/Vol]165 mg/dLNormalOhiohealth [facility] SpecialistComment on above:Result Comment: LDL ATP III CLASSIFICATION LDL less than 100 mg/dl Optimal LDL 100-129 mg/dl Near or above optimal LDL 130-159 Borderline high LDL 160-189 High LDL greater than 189 mg/dl Very HighPerformed By: #### URIC, CBCAD, VITD, ESR, CMP, LIPD #### [facility] [address] [place], [place] [id number] in VLDL [Mass/Vol]56 mg/dLNormalNoTriHealth SpecialistComment on above:Performed By: #### URIC, CBCAD, VITD, ESR, CMP, LIPD #### [facility] [address] [facility] [id number].total/Cholesterol in HDL [Mass ratio]5 {ratio} NormalNortUniversity Hospitals Elyria Medical Center SpecialistComment on above:Performed By: #### URIC, CBCAD, VITD, ESR, CMP, LIPD #### [facility] [address] [place], [place] [id number] [Mass/Vol]279 mg/yBEobk41-972Ldzgldrg [facility] SpecialistComment on above:Result Comment: TRIG ATPIII CLASSIFICATIONS TRIG less than 150 mg/dl Normal TRIG 150-199 mg/dl Borderline High TRIG 200-500 mg/dl High TRIG greather than 500 mg/dl Very HighPerformed By: #### URIC, CBCAD, VITD, ESR, CMP, LIPD #### [facility] [address] [place], [place] [id number] Sedimentation Rateon 60-19-6006YFG (Bld) [Velocity]31.00 mm/hHigh0.00-30.00Nortveterans health administration [facility] phoenixn [facility] SpecialistComment on above:Performed By: #### URIC, CBCAD, VITD, ESR, CMP, LIPD #### [facility] [address] [place], [place] [id number] KINSEY DOP LEG RTon [id number] KINSEY DOP LEG RTEXAMINATION: US KINSEY DOP LEG RT HISTORY: Disorder [...] Electronically authenticated by: CHLOE HESTER Date: 2021-06-02 15:05[facility] [address] HospitalUric Acidon 42-55-3137OYPA24.2 mg/dLHigh2.5-7.0Nortveterans health administration [facility] phoenixn [facility] SpecialistComment on above:Result Comment: Reference range change 02/25/2017. Prior reference range F 2.4-5.7mg/dL. M 3.4-7.0 mg/dL.Performed By: #### URIC, CBCAD, VITD, ESR, CMP, LIPD #### [facility] [address] [place], [place] [id number] D 25-OHon 85-13-0368AIX D 25 OH14 ng/mlLow>29[facility] SpecialistComment on above:Result Comment: Vitamin D Status Deficiency <20 ng/mL Insufficiency 20-29 ng/mL Optimal 30-100 ng/mL Possible Toxicity >=150 ng/mLPerformed By: #### URIC, CBCAD, VITD, ESR, CMP, LIPD #### [facility] [address] [facility], [place] [id number] Culture and Typingon 38-40-3911ZUI Culture and Typing Normal.[facility] HospitalComment on above:Order Comment: SOURCE OF SPECIMEN: UTM SWABResult Comment: Negative No Herpes simplex virus isolated. Performed at: - [facility], [place], [place] [id number] Staff Field Engineer: Vikas Cleveland PhD, Phone: [phone] PERFORMED BY: [facility] [address] [place] [address] PATHOLOGIST CLINICAL MEDICAL ASSISTANT PETRONA MAYNARD M.D.Performed By: #### HSV CULTwTYPING #### [facility] ,Superficial Wound Cultureon 12-43-6724Knulblevquq Wound CultureORGANISM: Staphylococcus aureus (O:STAAUR) Quantity of Growth Heavy Growth Aerobic ROMAN Charge (PC45) SUSCEPTIBILITY ORGANISM: O:STAAUR ANTIBIOTIC INTERPRETATION ROMAN Amoxacillin/K [...] <4 Rifampin S <1 Tetracycline S <4 Trimethoprim/Sulfamethoxazole S <0.5/9.5 Vancomycin S 1 S = [...] RESISTANT TO ALL B-LACTAM DRUGS. PERFORMED BY: [address] [address] PATHOLOGIST CLINICAL MEDICAL ASSISTANT PETRONA MAYNARD M.D.Kettering HealthComment on above: Performed By: #### CUSUP #### [address] [address] USASuperficial Wound Cultureon 97-23-5962Hvstghekrva Wound CultureBACTERIA IDENTIFIED IN SKIN BY AEROBE CULTURE; RIGHT INFERIOR MEDIAL MALAR CHEEK AND FACE Light Normal Skin Janie 2 Days PERFORMED BY: [address] [address] PATHOLOGIST CLINICAL MEDICAL ASSISTANT PETRONA MAYNARD M.D.[facility]tering HealthComment on above: Performed By: #### CUSUP #### [address] [address] USAECHOCARDIO M/2D COMPLETEon 24-83-4860MAEAGJMGSE M/2D COMPLETEPatient: ESPERANZA TELLEZ V. Exam Date: 07/01/2020 : 1935 Gender:F Ordering : DR PHU ANAND M.D. Admission #: [id number] Family : Order #: [id number] CLICK HERE TO VIEW EXAM ECHOCARDIOGRAM REPORT [...] Area(A4C): 14.20 cm2 Left Atrium Systolic Volume(A4C): 97425 mm3 Mitral Valve MV E to A [...] by: Hiram Sexton M.D. on 07/01/2020 at 19:17[facility] Vital Signs Date TimeVital SignValuePerforming UrazzaivjUmlmqufn46-33-3491 13:49-0400 Diastolic blood cqwphfno41 mm[Hg]Nancy GONZALEZ Work Phone: noGuestDriven Lswwoxjuxz91-73-0606 13:49-0400Systolic blood fplabdtw343 mm[Hg]Nancy GONZALEZ Work Phone: noBates County Memorial HospitalMyjtfidfar07-59-0595 13:38-0400Body pewinq692.1 cmKaren Hemmer PA Work Phone: [facility] HealthBfevmncdny22-06-2819 13:38-0400Body mass index (BMI) [Ratio]37.24 kg/l7Khsxk Hemmer PA Work Phone: [facility] HealthEgbcihqeex39-49-3440 13:38-0400Body ckxkdu307.52 kgKaren Hemmer PA Work Phone: [facility] HealthBqjesepkvx29-39-0880 13:38-0400Heart rate70 /min Nancy Hemmer PA Work Phone: [facility] HealthSktzmjnxmg94-84-9951 13:38-0400Respiratory rate16 /minKaren Hemmer PA Work Phone: [facility] HealthBgkavgcaqk76-19-4626 13:38-7384HzF3% (BldA) [Mass fraction]98 %Nancy Hemmer PA Work Phone: [facility] HealthHfjmixloot82-17-0407 15:03-0400Body wfaxiv448.1 cmKaren Hemmer PA Work Phone: [facility] HealthWgceryktvm61-48-1140 15:03-0400Body mass index (BMI) [Ratio]37.24 kg/q8Vlmvl Hemmer PA Work Phone: [facility] HealthXvdodspnpz95-15-5707 15:03-0400Body .52 kgKaren Hemmer PA Work Phone: [facility] HealthAgidzsefqs59-25-9422 15:03-0400Diastolic blood dgdxxnfe34 mm[Hg]Nancy Hemmer PA Work Phone: [facility] HealthVsgjonkehd72-11-3758 15:03-0400Heart rate68 /min Nancy Hemmer PA Work Phone: [facility] HealthZttycluoxs41-66-7278 15:03-0400Respiratory rate16 /minKaren Hemmer PA Work Phone: [place] [address]Axqjiriobi32-56-1389 15:03-4422SgV5% (BldA) [Mass fraction]99 %Nancy Hemmer PA Work Phone: [facility] HealthPtdgoulaji20-24-5260 15:03-0400Systolic blood anixweqr439 mm[Hg]Nancy Hemmer PA Work Phone: [facility] HealthHstnhtipyj23-34-2984 14:56-0400Body drsyxw091.1 cmKaren Hemmer PA Work Phone: [facility] HealthWngictndrr92-29-2100 14:56-0400Body mass index (BMI) [Ratio]36.28 kg/g0Qoplw Hemmer PA Work Phone: [facility] HealthMegsoukgvv57-99-4826 14:56-0400Body ojpusy50.88 kgMynoren Hemmer PA Work Phone: [facility] HealthSjsmexvvrz68-10-1369 14:56-0400Diastolic blood abocqzzp08 mm[Hg]Nancy Hemmer PA Work Phone: [facility] HealthOdhhxhsaqy33-63-2770 14:56-0400Heart rate67 /min Nancy Hemmer PA Work Phone: [facility] HealthRstokvitoc76-05-5443 14:56-0400Respiratory rate16 /minNancy Hemmer PA Work Phone: [facility] HealthMhtjpajnva96-81-7153 14:56-0507AaF4% (BldA) [Mass fraction]97 %Nancy Hemmer PA Work Phone: [facility] HealthHduqxdmdnp13-60-6929 14:56-0400Systolic blood mm[Hg]Nancy Hemmer PA Work Phone: [facility] HealthKscxbirfkv20-10-6856 14:57-0400Body jaiegq822.1 cmKaren Hemmer PA Work Phone: [facility] HealthLpmomvhpkw31-13-0092 14:57-0400Body mass index (BMI) [Ratio]35.71 kg/e6Hjgkc Hemmer PA Work Phone: [facility] HealthJgcfsllnon65-25-9285 14:57-0400Body fboceb04.34 kgKaren Hemmer PA Work Phone: [facility] HealthVsgypwbwyv43-44-5503 14:57-0400Diastolic blood zcldbuks88 mm[Hg]Nancy Hemmer PA Work Phone: [facility] HealthKpdyintcsu70-94-9952 14:57-0400Heart rate71 /min Nancy Hemmer PA Work Phone: [facility] HealthBgpxmldgck03-65-6461 14:57-0400Respiratory rate16 /minKaren Hemmer PA Work Phone: [facility] HealthBdovndjgvw80-00-4961 14:57-4623JhH6% (BldA) [Mass fraction]96 %Nancy Hemmer PA Work Phone: [facility] HealthCpzqdaollw80-76-0409 14:57-0400Systolic blood vpcttued279 mm[Hg]Nancy Hemmer PA Work Phone: [facility] HealthCoczcfkuue03-10-5049 14:58-0400Body viojof999.1 cmKaren Hemmer PA Work Phone: [facility] HealthOfzjzaxemq05-36-8627 14:58-0400Body mass index (BMI) [Ratio]36.58 kg/v4Dhahf Hemmer PA Work Phone: [facility] HealthVfdboinzzf79-67-5932 14:58-0400Body lfhhhe45.7 kg Nancy Hemmer PA Work Phone: [facility] HealthKhbyvlprhv56-39-6683 14:58-0400Diastolic blood djodutpu74 mm[Hg]Nancy Hemmer PA Work Phone: [facility] HealthCtbehnhihc56-10-7330 14:58-0400Heart rate75 /min Nancy Hemmer PA Work Phone: [facility] HealthCfskmnwjbc66-87-0475 14:58-0400Respiratory rate16 /minKaren Hemmer PA Work Phone: [place] [address]Nhwehkende69-77-4434 14:58-5032WaM5% (BldA) [Mass fraction]96 %Nancy Hemmer PA Work Phone: [place] [address]Kkqicdecmy56-50-4935 14:58-0400Systolic blood utzomzfe621 mm[Hg]Nancy Hemmer PA Work Phone: [facility] HealthRotkerqdok86-87-5996 15:56-0500Body mass index (BMI) [Ratio]34.95 kg/p2Efpct Hemmer PA Work Phone: [facility] HealthCsilqjjjyu82-59-6157 15:56-0500Body wypdsu23.25 kgKaren Hemmer PA Work Phone: [facility] HealthXufsntkrqy26-18-9658 15:56-0500Diastolic blood skajoywb38 mm[Hg]Nancy Hemmer PA Work Phone: [place] [address]Pmbqofwrls84-51-5841 15:56-0500Heart rate88 /min Nancy Hemmer PA Work Phone: [place] [address]Ppdbtpasoa36-21-6781 15:56-0500Respiratory rate17 /minKaren Hemmer PA Work Phone: [facility] HealthZxsdkseyiu70-43-5351 15:56-1841NvQ3% (BldA) [Mass fraction]98 %Nancy Hemmer PA Work Phone: [place] [address]Mkwhdeibdf09-88-7242 15:56-0500Systolic blood cbgirkkr398 mm[Hg]Nancy Hemmer PA Work Phone: [facility] HealthBozzpmiocb79-46-8899 13:53-0400Body .1 cmKaren Hemmer PA Work Phone: [facility] HealthMthfybczbv38-76-2122 13:53-0400Body mass index (BMI) [Ratio]36.04 kg/y0Qkbwq Hemmer PA Work Phone: 1([phone])206-[address] [place], [place] [address]Kimhselcrb78-35-4610 13:53-0400Body utvexx93.25 kgKaren Hemmer PA Work Phone: 1(923)[facility]-[address] [place], [place] [address]Aefznlhhmv37-33-7155 13:53-0400Diastolic blood pvobhxir68 mm[Hg]Nancy Hemmer PA Work Phone: 1(114)[facility]-5252Carondelet HealthGmuqgbkbnx07-81-8069 13:53-0400Heart rate76 /min Nancy Hemmer PA Work Phone: 1(768)[facility]-[address] [place], [place] [address]Hnihaekgye83-30-9148 13:53-0400Respiratory rate16 /Jerilyn Mueller PA Work Phone: noSilicon & Software SystemsCjniwapala52-20-9307 13:53-8413WhF3% (BldA) [Mass fraction]98 %Nancy Muleler PA Work Phone: noSilicon & Software SystemsPtjpfnlbkp77-77-3528 13:53-0400Systolic blood ptmkwakm824 mm[Hg]Nancyclaudio Mueller PA Work Phone: noSilicon & Software SystemsXebggzwprx10-24-6269 18:40-0400Body .91 cmPamelvalentina Rivera Other [employer] [employer] Other 05-25-2022 18:40-0400Body mass index (BMI) [Ratio]33.7 kg/h2Awhlfqmakenna Rivera Other [facility] Other 05-25-2022 18:40-0400Body xfizpkkyhos88.6 [degF]Flor Nicole Other [employer] Other 05-25-2022 18:40-0400Body .16 kgPamakenna Rivera Other [facility] Other 05-25-2022 18:40-0400Respiratory rate14 /minFlor Nicole Other [facility] Other 05-25-2022 18:40-1849XgZ5% (BldA) [Mass fraction]98 % Flor Garciamond Other [facility] Other Encounters Encounter DateEncounter [facility] ProviderFacilityStart: 01-30-2025 End: 89-99-7959Aytric flowsheetNancy Mueller PA Work Phone: [facility] MedinceStart: 01-30-2025 End: 26-81-2919Tnusyu flowsheetNancy GONZALEZ Work Phone: [facility] Sarahy Mac MedinceStart: 01-30-2025 End: 10-27-0705Fbhfgoq encounter procedureNancy GONZALEZ Work Phone: [facility] Sarahy Mac MedinceComment on above:Medicare annual wellness visit, subsequent (Primary Dx); ACP [...] Migraine without aura, not refractory; Morbid obesity ([facility] [facility] Other rosacea; Peripheral polyneuropathy; Chronic kidney disease, stage 3b ([facility]); Vitamin D deficiency; Mixed hyperlipidemiaStart: 01-30-2025 End: 88-95-8070vzywyfxofqESHILNikia Jennings AvailableStart: 12-11-2024 End: 99-09-4751Hwzhwl outpatient visit 15 minutesNancy GONZALEZ Work Phone: NOJW [place] Mac MedinceComment on above:Cellulitis of left hand (Primary Dx); Elevated uric acid in bloodStart: 12-11-2024 End: 26-71-3473koolqhclylIGHTZNikia Jennings AvailableStart: 10-08-2024 End: 92-89-5517Ysnnrk outpatient visit 15 minutesNancy GONZALEZ Work Phone: NOTX CI FMComment on above:Type 2 diabetes mellitus with other specified complication, without long-term current use of insulin (HCC) (Primary Dx); Essential hypertension, benign ; Morbid obesity ([facility])Start: 10-08-2024 End: 96-29-3626qdhqwzihorBAVZJNikia Jennings AvailableStart: 10-08-2024 End: 77-27-4173Fbshdz Zain Rangel Hemmer PA Work Phone: NOM[facility] CI FMStart: 10-08-2024 End: 59-94-7569Hhyjyr Zain Rangel Hemmer PA Work Phone: [facility] CI FMStart: 08-06-2024 End: 24-29-6388Niiexw outpatient visit 25 minutesMynorclaudio Rangel Hemmer PA Work Phone: [phone] CI FMComment on above:Type 2 diabetes mellitus with other specified complication, without long-term current use of insulin (Primary Dx); Essential hypertension, benign (CMS/HCC); Morbid obesity (CMS/HCC); BMI 35.0-35.9,adultStart: 08-06-2024 End: 64-98-2955stozlqxwgqQIKNK M HEMMERNot AvailableStart: 08-06-2024 End: 20-97-6732Xvaain Zain Rangel Hemmer PA Work Phone: [phone] CI FMStart: 08-06-2024 End: 86-88-1571Xhkdbb Zain Rangel Hemmer PA Work Phone: [phone] CI FMStart: 07-05-2024 End: 25-99-2313Deosaf outpatient visit 25 minutesNancy Mariemer PA Work Phone: NOMS CI FMComment on above:Type 2 diabetes mellitus with other specified complication, without long-term current use of insulin (CMS/HCC) (Primary Dx); Mixed hyperlipidemia (CMS/HCC); Idiopathic chronic gout of multiple sites without tophus; Hypercalcemia; Vitamin D deficiency; Chronic kidney disease, stage 3b (HCC) (CMS/HCC)Start: 07-05-2024 End: 67-88-9530pangbrpqrlOILUS M HEMMERNot AvailableStart: 07-05-2024 End: 42-57-3911Vrrclk Zain Rangel Hemmer PA Work Phone: [facility] CI FMStart: 07-05-2024 End: 87-02-2456Ajqhfz Zain Rangel Hemmer PA Work Phone: [facility] CI FMStart: 07-03-2024 End: 36-17-7528Dmpvdqfbm encounterNancy GONZALEZ Work Phone: [facility] CI FMStart: 07-02-2024 End: 52-67-5238tulhwsyvuxJDVDS M HEMMERNot AvailableStart: 03-07-2024 End: 23-38-5665Acaoyh outpatient visit 15 minutesNancy GONZALEZ Work Phone: NOMS CI FMComment on above:Left leg pain (Primary Dx) Start: 03-07-2024 End: 54-99-0602bhedskqasvNESEU M HEMMERNot AvailableStart: 03-07-2024 End: 14-77-8232Ynrjvp Zain Mueller PA Work Phone: NOM[facility] CI FMStart: 03-07-2024 End: 41-75-4491Urriwg Zain GONZALEZ Work Phone: [facility] CI FMStart: 01-10-2024 End: 99-07-2882Eyiocc Zain Mueller PA Work Phone: [facility] CI FMStart: 01-10-2024 End: 13-92-2573Jfqfmq Zain Mueller PA Work Phone: [facility] CI FMStart: 01-10-2024 End: 05-11-2937Dhwsazv encounter Marily GONZALEZ Work Phone: NOM[facility] CI FMComment on above:Medicare annual wellness visit, subsequent (Primary Dx); Essential hypertension (CMS/HCC); ACP (advance care planning); Elevated uric acid in blood; Degeneration of intervertebral disc of lumbar region with discogenic back pain; Peripheral polyneuropathy; Atelectasis; 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, stage 1 through stage 4 or unspecified chronic kidney disease, without heart failure (CMS/HCC); Gastro-esophageal reflux disease without esophagitis; Localized osteoporosis of [place] (CMS/HCC); Morbid obesity (CMS/HCC); Vitamin D deficiency; Actinic keratosis; Elevated alkaline phosphatase level; Elevated myoglobin level; Estrogen deficiency; Hypercalcemia; Idiopathic chronic gout of multiple sites without tophus; Menopausal and postmenopausal disorder; Migraine without aura, not refractory (CMS/HCC); Other rosacea; Pure hypercholesterolemia (CMS/HCC); Chronic kidney disease, stage 4 (severe) (CMS/HCC); BMI 36.0-36.9,adultStart: 01-04-2024 End: 99-49-0912Obzkhqrqb encounterDabritany Anand MD Work Phone: NORI CI FMStart: 09-02-2021 End: 12-27-3559qlkgmsjwweDngfzw Dymond Other [facility] [employer] Other Start: 91-89-1591Xhfocf outpatient visit 15 minutes Flor [facility] ClydeStart: 06-11-2021 End: 29-20-8249pgjnhzxzdoAX DANIEL BERRYFacility:Q3Ecexw: 06-02-2021 End: 31-24-5936ghuobsmqgfZB DANIEL BERRYFacility:F6Rwuaf: 10-21-2020 End: 65-85-8975qokywibqgmPT DANIEL BERRYFacility:D0Tsqmf: 07-01-2020 End: 17-12-6516vacakntpskRO DANIEL BERRYFacility:H1 Procedures DateProcedureProcedure DetailPerforming ClinicianStart: 65-97-6919Gihcifomax glycosylated Trav GONZALEZ Work Phone: Plan of Treatment DateCare ActivityDetailAuthorStart: 10-22-2026Medicare Annual Wellness (AWV) Medicare Annual Wellness (AWV)[facility]OM[facility] HealthcareStart: 99-81-8190Filmkgkncvse Vaccine: 65+ Years (2 of 2 - PCV)Pneumococcal Vaccine: 65+ Years (2 of 2 - PCV) NOMS HealthcareComment on above:Postponed from 03/14/2020 (Patient Refused) Start: 48-89-1311Fnpph screening for proteinDiabetes: Urine Protein Screening NOM[facility] HealthcareStart: 81-25-5016Gcxnukbfz vaccinationInfluenza Vaccine (#1)NOMS HealthcareComment on above:Postponed from 12/10/2024 (Patient Refused)Start: 01-30-2025 End: 08-99-2999Ryvmegf encounter cyxereofp06/22/2025 1:30 PM EDT Office Visit NOMGustavo Mac Medince [address] [place] [address] Nancy Mueller PA [address] [place] [address] ArrivedNOMS [place] Mac MedinceComment on above:ArrivedStart: 01-23-2025 End: 35-19-5417Unjqcxq encounter gjemalfhv42/15/2025 10:00 AM EDT Office Visit N[facility] [place] Mac Med[facility] [address] [place] [address] Nancy Mueller PA [address] [facility] [address] [place] [address] NOMGustavo Mac MedinceStart: 01-09-2025 Medicare Annual Wellness (AWV)Medicare Annual Wellness (AWV)[facility] Start: 50-84-6263Tenrfecsuloe Vaccine: 65+ Years (2 of 2 - PCV)Pneumococcal Vaccine: 65+ Years (2 of 2 - PCV)NOMS HealthcareComment on above:Postponed from 03/14/2020 (Patient Refused)Start: 47-67-4341Crrazzuuan A1c measurementDiabetes: Hemoglobin Z6XRXHX HealthcareStart: 27-99-6515Yrncrrdfk vaccinationNORI HealthcareStart: 10-08-2024 End: 79-76-6726Aomlwbq encounter procedureNOMS CI FMComment on above:Arrived Start: 19-12-0405Kczqqzsae vaccinationInfluenza Vaccine (#1)[facility] Comment on above:Postponed from 12/11/2023 (Patient Refused)Start: 10-02-2024 Hemoglobin A1c measurementDiabetes: Hemoglobin X0KUOIN HealthcareStart: 08-06-2024 End: 48-25-7428Foipwdj encounter procedureNOMS CI FMComment on above:Arrived Start: 08-06-2024 End: 24-80-1407Tviibxuntmuh/Creatinine panel in random UrineMicroalbumin / creatinine, urine ratio Lab Routine Type 2 diabetes mellitus with other specified complication, without long-term current use of insulin Expected: 08/06/2024 (Approximate), Expires: 08/06/2025[facility] Work Phone: Comment on above:Expected: 08/06/2024 (Approximate), Expires: 08/06/2025Start: 07-05-2024 End: 52-03-3316Gpdczso encounter procedureNOMS CI FMComment on above:Arrived Start: 03-07-2024 End: 88-19-1849Tznnkuj encounter yrvcblxji48/27/2024 4:00 PM EST Office Visit [facility] CI FM [address] [place] [address] Nancy Mueller PA [address] [place] [address] ArrivedNOMS CI FMComment on above:ArrivedStart: 01-10-2024 End: 376061-escdsmcyncrsll D3 [Mass/volume] in Serum or PlasmaVitamin D 25 hydroxy Total Lab Routine Medicare annual wellness visit, subsequent Vitamin D deficiency Expected: 01/10/2024 (Approximate), Expires: 01/09/2025NORI HealthcareComment on above:Expected: 01/10/2024 (Approximate), Expires: 01/09/2025Start: 01-10-2024 End: 96-93-3896YQC W Auto Differential panel - BloodCBC and differential Lab Routine Medicare annual wellness visit, subsequent Essential hypertension ( CMS/HCC) Chronic kidney disease, stage 4 (severe) (CMS/HCC) Expected: 01/10/2024 (Approximate), Expires: 01/09/2025[facility] Work Phone: Comment on above:Expected: 01/10/2024 (Approximate), Expires: 01/09/2025Start: 01-10-2024 End: 92-25-2459Rmxowyhlohwqq metabolic 2000 panel - Serum or PlasmaComprehensive metabolic panel Lab Routine Medicare annual wellness visit, subsequent Essential hypertension (CMS/HCC) Elevated alkaline phosphatase level Hypercalcemia Chronic kidney disease, stage 4(severe) (CMS/HCC) Expected: 01/10/2024 (Approximate), Expires: 01/09/2025NORI HealthcareComment on above: Expected: 01/10/2024 (Approximate), Expires: 01/09/2025Start: 01-10-2024 End: 30-73-2359Glkyj 1996 panel - Serum or PlasmaLipid panel Lab Routine Medicare annual wellness visit, subsequent Essential hypertension (CMS/HCC)Pure hypercholesterolemia (CMS/HCC) Expected: 01/10/2024 (Approximate), Expires: 01/09/2025NORI HealthcareComment on above:Expected: 01/10/2024 (Approximate), Expires: 01/09/2025Start: 01-10-2024 End: 90-83-9602Hbwybwx encounter /01/2024 2:00 PM EDT Office Visit [facility] [address] [facility] [address] [place] [phone] Nancy Mueller PA [address] [facility] [address] [place] [address] ArrivedNORI CI FMComment on above:ArrivedStart: 01-10-2024 End: 88-50-5404Iopkm [Mass/volume] in Serum or PlasmaUric acid Lab Routine Medicare annual wellness visit, subsequent Elevated uric acid in blood Idiopat hic chronic gout of multiple sites without tophus Expected: 01/10/2024 (Approximate), Expires: 01/09/2025NORI HealthcareComment on above:Expected: 01/10/2024 (Approximate), Expires: 01/09/2025Start: 84-27-9204Ntvopttur vaccinationInfluenza Vaccine (#1)[facility] HealthcareStart: 02-56-8422Ryvuxyqhzkvo Vaccine: 65+ Years (2 of 2 - PCV)Pneumococcal Vaccine: 65+ Years (2 of 2 - PCV) [facility] HealthcareStart: 94-88-0151Ufuju screening for proteinDiabetes: Urine Protein ScreeningNORI HealthcareStart: 42-83-4347Vmkjylrw screeningDiabetes: Retinopathy ScreeningCarondelet Health Immunizations Immunization DateImmunizationNotesCare FfsvluueMxiribjh25-82-3217sudmyyfoz, high dose seasonal, preservative-freeKaren Hemmer PA Work Phone: SxbbmBates County Memorial HospitalVikmmymwdc23-49-5988lmedzvqvk virus vaccine, unspecified formulationKaren Hemmer PA Work Phone: [phone] HealthFmdeaxkrgb88-93-6029ijtvxvwjunbr polysaccharide vaccine, 23 valentKaren Hemmer PA Work Phone: [phone] HealthJdkbohxxle29-01-0314lzhcjwdyg, high dose seasonal, preservative-freeKaren Hemmer PA Work Phone: [phone]-BarcodingCarondelet HealthCgiankychu99-01-7011plxpdmk toxoid, reduced diphtheria toxoid, and acellular pertussis vaccine, adsorbedKaren Hemmer PA Work Phone: [phone]-TagCarondelet HealthFyrgqjdiic41-59-6741vngjtnmy influenza, intradermal, preservative freeSt. Mary'S Hospitalen Hemmer PA Work Phone: [phone]-TagCarondelet Health Payers DatePayer CategoryPayerPolicy [id number] Health InsuranceAARP [id number] AARP [id number] 2022-Present [address] [place] [address] [id number] 2002Medicare [id number] [id number] 1960 [id number] 2.16.840.1.588986.3.579.2.593 [id number] 2.16.840.1.812271.3.57[id number] 2.16.840.1.272797.3.57[id number] 2.16.840.1.621398.3.57[id number] 2.16.840.1.605650.3.57[id number] 2.16.840.1.562005.3.57[id number] 2.16.840.1.607176.3.57[id number] 2.16.840.1.376898.3.57[id number] 2.16.840.1.809142.3.57[id number] 2.16.840.1.261064.3.57[id number] 2.16.840.1.519909.3.579.2.1259 Social History DateTypeDetailFacilityStart: 12-08-2022 End: 71-49-2586Taa Assigned At [facility] [employer] Other Start: 88-79-9124Wippyvf smoking status NHISNever smoked tobaccoNOMS HealthcareStart: 79-64-9723Yyedvxw use and exposureSmokeless tobacco non-userNORI HealthcareStart: 12-08-2022 End: 60-69-0150Qqhvaluwu beverage intakeLifetime non-drinker (finding)[facility] HealthcareStart: 12-08-2022 End: 71-82-5927Homwkka of Social functionCarondelet HealthStart: 31-79-2929Ghr assigned at birthNot on fileNORI HealthcareStart: 57-49-3610Pvw often do you need to have someone help you when you read instructions, pamphlets, or other written material from your doctor or pharmacy [SILS]RarelyS[facility] Healthcare Work Phone: Within the last year, have you been afraid of your partner or ex-partner?NoNOMS HealthcareAre you now , , , , never or living with a partner?MarriedNORI HealthcareHow often to you have a drink containing alcohol?NeverNOMS HealthcareDo you feel stress - tense, restless, nervous, or anxious, or unable to sleep at night because yourmind is troubled all the time - these days [OSQ]Not at allNOMS Healthcare(I/We) worried whether (my/our) food would run out before (I/we) got money to buy more.Never trueNOMS HealthcareHow often do you need to have someone help you when you read instructions, pamphlets, or other written material from your doctor or pharmacy [SILS][facility] Healthcare Work Phone: Medical Equipment Procedure CodeEquipment CodeEquipment Original TextEquipment IdentifierDates1 each by In Vitro route [id number]: each [id number]: 07-05-2024 Functional Status VnkuSfqkkshndlMzsvvkCewbiylu66-03-9531Uaurixf Health Questionnaire 2 item (PHQ- 2) [Reported]Carondelet HealthUwtrolvrqa23-71-2665Lwpaqgc Health Questionnaire 2 item (PHQ- 2) [Reported][facility]let HealthBpjkgtnwit31-36-0541Dxghnbn Health Questionnaire 2 item (PHQ- 2) [Reported][facility]let HealthUfciovxzgy50-48-6741Telfsiw Health Questionnaire 2 item (PHQ- 2) [Reported][facility] Clinical Notes 10-21-2020 to 01-30-2025 Note Date & DqmrIcesTqcctdsh12-44-3161 History of Present illness Narrative* CARLOS Howe - 01/30/2025 1:30 PM EDT Images from the original note were not included. HPI Med Refill Additional comments: Carvedilol, Triamterene-HCTZ Last edited by CARLOS Howe on 01/30/2025 1:45 PM. Subjective Patient ID: Esperanza Tellez is a 89 y.o. female who presents for Med Refill (Carvedilol, Triamterene-HCTZ) and Medicare Annual Wellness Visit Subsequent. Med Refill Pertinent negatives include no abdominal pain, arthralgias, chest pain, chills, congestion, coughing, fatigue, fever, nausea, numbness, rash, sore throat or vomiting. 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 Take with meals. Take with food.. 180 tablet 3 Glucose Blood (Blood Glucose Test) strip [...] with the patient today. Allergies Allergen Reactions Vitamin D3 [Cholecalciferol] Itching Social History Tobacco Use Smoking status: Never Smokeless tobacco: Never Vaping Use Vaping status: Never Used Substance Use Topics Alcohol use: Never Drug use: Never No family history on file. 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 The patient is not nervous/anxious. Objective Physical Exam Constitutional: General: She is [...] sensory deficit. Motor: No weakness. Gait: Gait abnormal (Straight cane for ambulation). Deep Tendon Reflexes: Reflexes normal. Psychiatric: Mood and Affect: Mood normal. Behavior: Behavior normal. Thought Content: Thought content normal. Judgment: Judgment normal. Assessment & Plan 1. Medicare annual wellness visit, subsequent (Primary) Reviewed all relevant preventative screenings with the patient in detail. Medicare Wellness form completed and will be scanned into patient's chart. All needed testing was ordered. Will continue withyearly Medicare Wellness exams. 2. ACP (advance care planning) Patient willing to discuss ACP. Pt has Living Will and DPOA in place. 3. Essential hypertension Patient's blood pressure was improved on recheck. Continue with current medications and I will continue to monitor. Goal BP remains less than 130/80. - triamterene-hydrochlorothiazide (Maxzide-25) 37.5-25 MG tablet; Take 1 tablet by mouth in the morning. Dispense: 90 tablet; Refill: 3 - carvedilol (Coreg) 25 MG tablet; Take 1 tablet (25 mg) by mouth in the morning and 1 tablet (25 mg) in the evening. Take with meals. Take with food. Dispense: 180 tablet; Refill: 3 4. Actinic keratosis Has seen Dermatology in the past. She is to follow up with them for any new or suspicious lesions. 5. Atelectasis This is a chronic medical condition that is stable since last assessment. No concerns at this time. 6. 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 Continue with current medications and I will continue to monitor. Goal BP remains less than 130/80. 7. Elevated alkaline phosphatase level This is a chronic medical condition that is stable since last assessment. Will continue to monitor with routine labs. 8. Elevated myoglobin level This is a chronic medical condition that is stable since last assessment. Will continue to monitor. 9. Elevated uric acid in blood This is a chronic medical condition that is stable since last assessment. Will continue to monitor with routine labs. 10. Estrogen deficiency This is a chronic medical condition that is stable since last assessment. Will continue to monitor with routine preventative labs. 11. Gastro-esophageal reflux disease without esophagitis This is a chronic medical condition that is stable since last assessment. OTC if needed. 12. Hypercalcemia This is a chronic medical condition that is stable since last assessment. Will continue to monitor with routine labs. 13. Idiopathic chronic gout of multiple sites without tophus This is a chronic medical condition that is stable since last assessment. No changes in treatment are suggested at this time. Continue Allopurinol as prescribed. 14. Localized osteoporosis of [place] This is a chronic medical condition that is stable since last assessment. Will continue to monitor with routine DEXA scans. 15. Degeneration of intervertebral disc of lumbar region with discogenic back pain This is a chronic medical condition that is stable since last assessment. OTC for pain as needed. 16. Menopausal and postmenopausal disorder This is a chronic medical condition that is stable since last assessment. Will continue to monitor with routine preventative labs. 17. Migraine without aura, not refractory This is a chronic medical condition that is stable since last assessment. OTC for pain as needed. 18. Morbid obesity ([facility]) Encouraged portion control, decrease simple sugars and carbohydrates, gradually increase activity level. Aim for gradual steady weight loss. 19. Other rosacea This is a chronic medical condition that is stable since last assessment. No specific treatment needed at this time. 20. Peripheral polyneuropathy This is a chronic medical condition that is stable since last assessment. No specific treatment needed at this time. 21. Chronic kidney disease, stage 3b ([facility]) This is a chronic medical condition that is stable since last assessment. Will continue to monitor with routine labs. 22. Vitamin D deficiency This is a chronic medical condition that is stable since last assessment. Will continue to monitor with routine labs. 23. Mixed hyperlipidemia This is a chronic medical condition that is stable since last assessment. Will continue to monitor with routine labs. Follow up with CARLOS Asif in 3 months (on 04/30/2025 Diabetes). Nancy Mueller MSBS, PAImeldaC documented in this encounterCarondelet HealthNqcipnkiqu80-04-0341 History of Present illness Narrative* CARLOS Howe - 12/11/2024 3:00 PM EDT Images from the original note were not included. HPI Med Refill Additional comments: Allopurinol. States if she takes it daily, but it causes her to lose her hair. Last edited by CARLOS Howe on 12/11/2024 3:24 PM. Subjective Patient ID: Esperanza Tellez is a 89 y.o. female who presents for hand swelling. Esperanza is present today for evaluation of hand swelling. Admits it is in her left hand. She did end up going to [facility] ER on 12/07/24 and they diagnosed her with Cellulitis and rx'd Cephalexin. It is stillswollen but has improved. Over the past 2 weeks, how often have you been bothered by any of the following problems? Little interest or pleasure in doing things: Not at all Feeling down, depressed, or hopeless: Not at all Patient Health Questionnaire-2 Score: 0 Current Outpatient Medications on File Prior to Visit Medication Sig Dispense Refill cephalexin (Keflex) 500 MG capsule Take 500 mg by mouth in the morning and 500 mg at noon and 500 mg in the evening and 500 mg before bedtime. carvedilol (Coreg) 25 MG tablet Take 1 tablet (25 mg) by mouth in the morning and 1 tablet (25 mg) in the evening. Take with meals. Take with food.. 180 tablet 3 Glucose Blood (Blood Glucose Test) strip 1 each by In Vitro route Daily 100 strip 3 Lancets 30G misc 1 each Daily 100 each 3 triamcinolone (Kenalog) 0.025 % cream Apply topically 2 (two) times a day 30 g 2 triamterene-hydrochlorothiazide (Maxzide-25) 37.5-25 MG tablet Take 1 tablet by mouth in the morning. 100 tablet 3 [DISCONTINUED] allopurinol (Zyloprim) 100 MG tablet Take 1 tablet (100 mg) by mouth every other day45 tablet 3 [DISCONTINUED] cholecalciferol (Vitamin D-3) 50 MCG (1999) capsule Take 1 capsule (50 mcg) by mouth Daily (Patient not taking: Reported on 12/11/2024) 100 capsule 3 No current facility-administered medications on file prior to visit. I have reviewed and reconciled the history and medication list with the patient today. Allergies Allergen Reactions Vitamin D3 [Cholecalciferol] Itching Social History Tobacco Use Smoking status: Never Smokeless tobacco: Never Vaping Use Vaping status: Never Used Substance Use Topics Alcohol use: Never Drug use: Never No family history on file. 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 Respiratory: Negative for cough, shortness of breath and wheezing. Cardiovascular: Negative for chest pain, palpitations and leg swelling. Gastrointestinal: Negative for abdominal pain, constipation, diarrhea, nausea and vomiting. Skin: See HPI Objective Physical Exam Constitutional: General: She is [...] Skin: General: Skin is warm and dry. Findings: Erythema present. Comments: Very minimal remaining erythema and increased warmth to touch dorsal aspect of left hand. Neurological: General: No focal deficit present. Mental Status: She is alert and oriented to person, place, and time. Gait: Gait abnormal. Psychiatric: Mood and Affect: Mood normal. Behavior: Behavior normal. Assessment/Plan Diagnoses and all orders for this visit: Cellulitis of left hand Finish Cephalexin as prescribed by the ER. It was listed as an allergy in her chart, but she is taking it without reaction at this time. Symptoms have been improving for her. Will request records from the [facility] ER from 12/07. Elevated uric acid in blood - allopurinol (Zyloprim) 100 MG tablet; Take 1 tablet (100 mg) by mouth every other day Refill provided on the above. Will continue with it every other day and continue to monitor. Follow up in about 5 weeks (around 01/14/2025) for Medicare Wellness Visit. documented in this encounterCarondelet [id number] History of Present illness Narrative* Nancy Mueller, CARLOS - 10/08/2024 3:00 PM EDT Images from the original note were not [...] tablet 3 cholecalciferol (Vitamin D-3) 50 MCG (2000 UT) capsule Take 1 capsule (50 mcg) [...] complication, without long-term current use of insulin ([facility]) - POCT Glycated hemoglobin, total Advised pt [...] Continue with current medications and I will continueto monitor. Goal BP remains less than 130/80. Morbid obesity Encouraged portion control, decrease simple sugars and carbohydrates, gradually increase activity level. Aim for gradual steady weight loss. Follow up in about 14 weeks (around 01/14/2025) for Medicare Wellness Visit. documented in this encounterCarondelet [id number] History of Present illness Narrative* CARLOS Howe - 08/06/2024 3:00 PM EDT Images from the original note were not [...] have gradually improved and are mostly between 110- 130's. Will recheck dFgpA7b in two months. Last HgbA1c was 7.1. Encouraged patient to monitor her glucose every other day, continuing to vary the time of day she checks it, did very well with monitoring it. Encouraged her to check her glucose if she ever has another episode of lightheadedness. Essential hypertension, benign (CMS/HCC) Patient's blood pressure is currently well controlled. Continue with current medications and I willcontinue to monitor. Goal BP remains less than 130/80. Morbid obesity (CMS/HCC) Has lost 5 pounds since her last appointment. Patient has clearly made some positive lifestyle modifications. Encouraged her to continue to aim for a balanced diet and avoid simple sugars. BMI 35.0-35.9,adult See above. Follow up in about 2 months (around 10/06/2024) for Diabetes. documented in this encounterCarondelet [id number] History of Present illness Narrative* CARLOS Howe - 07/05/2024 3:00 PM EDT Images from the original note were not [...] LDL-C. Kamran PARKINSON et al. JAKY. 2013;310(19): 4755-2841 (http://education.[employer]/faq/IIU807) CHOL/HDLC RATIO 07/02/2024 6.4 (H) <5.0 (calc) [...] D2 and D3 fractions is required, the Maxtena() 25-OH VIT D, (D2,D3), LC/MS/MS is recommended: order code 44062 (patients >2yrs). See Note 1 Note 1 For additional information, please refer to http://education.[employer]/faq/KTO659 (This link is being provided for informational/ [...] ordering physician or his or her authorized inbound customer service representative after contact with an employee of [employer]. Federal regulations require that we maintain on file written authorization for all laboratory testing. Accordingly we are asking that the ordering physician or his or her authorized inbound customer service representative sign a copy of this report and promptly return it to the client associate. Signature: COMMENT 07/02/2024 Final Comment: Please have the ordering physician or his or her authorized inbound customer service representative sign a copy of this report and promptly return it by faxing it to: [phone] or by returning the form to your research manager. Hemoglobin A1C 07/02/2024 7.1 (H) <5.7 % [...] complication, without long-term current use of insulin ([facility]) - Blood Glucose Monitoring Suppl (Blood Glucose [...] simple sugar intake. Recommend that patient switch tozero sugar Gatorade, and continue to work on increasing her water intake. Limit breads, pastas, anddeserts. Provided pt with hand out on low [...] 100. Nursing did demonstration and did review techniquefor checking glucose with the patient. Will see [...] recheck this after patient has been back onthe Vitamin D. Likely when she comes in [...] (around 08/02/2024) for Diabetes. documented in this encounterCarondelet [id number] Telephone encounter Note* Telephone Encounter - Serene Ortez - 07/04/2024 9:16 AM EDT Pt scheduled [facility] [id number] Miscellaneous Notes* Telephone Encounter - Serene Ortez - 07/04/2024 9:16 AM EDT Pt scheduled * Telephone Encounter - CARLOS Howe - 07/03/2024 12:52 PM EDT Please let pt know that her recent labs showed multiple abnormal results that will be easier to discuss in person. Nothing dangerous, but it is important that we get them addressed. Please help her get scheduled for an appointment to discuss the lab results at her convenience. documented in this encounterCarondelet [id number] Telephone encounter Note* Telephone Encounter - CARLOS Howe - 07/03/2024 12:52 PM EDT Please let pt know that her recent labs showed multiple abnormal results that will be easier to discuss in person. Nothing dangerous, but it is important that we get them addressed. Please help her get scheduled for an appointment to discuss the lab results at her convenience. [facility] [id number] History of Present illness Narrative* CARLOS Howe - 03/07/2024 4:00 PM EST Images from the original note were not included. Flowsheet Row Patient Outreach from 03/01/[address] [facility] with [facility] Information ED, Hospital or Residential Facility Discharge? ED Patient has been contacted within 1 week of being seen in the ED No [Pt contacted outside of 1 weekwindow] Have two attempts been made to contact the patient within one week of being seen in the ED? Yes Diagnosis left foot & knee pain, Arthritis, Gout Discharge Date 02/25/24 Discharged To: Home Setting Discharge Hospital [facility] Engagement Call Start Time 933 Admission Date 02/25/24 Medications Discharge medications reviewed and reconciled from hospital? No [[facility] nurse not available for med rec] Is [...] left foot and ankle pain. XRs completed. Pttreated with toradol, discharged home with rx tramadol, prednisone, and tylenol arthritis pain. Pt reports completing rx tramadol and prednisone. She did not take the Tylenol arthritis pain. Pt reports pain improved and she is able to ambulate without difficulty. Call End Time 0943 Subjective Patient ID: Esperanza Tellez is a 88 y.o. female who presents for a hospital follow up. Esperanza is in today for a hospital follow up from [facility] on 02/24 for left leg and foot [...] Up with Dr. Anand. 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 Will continue withyearly Medicare Wellness exams. - CBC and differential - Comprehensive metabolic panel - Lipid panel - Vitamin D 25 hydroxy Total - Uric acid 2. Essential hypertension ([facility]) Patient's blood pressure is currently well controlled. Continue with current medications and I willcontinue to monitor. Goal BP remains less than [...] unspecified chronic kidney disease, without heart failure ([facility]) This is a chronic medical condition that is stable since last assessment. No changes in treatment are suggested at this time. Will continue to monitor with routine labs. 9. Gastro-esophageal reflux disease without esophagitis This is a chronic medical condition that is stable since last assessment. No changes in treatment are suggested at this time. 10. Localized osteoporosis of [place] ([facility]) This is a chronic medical condition that is stable since last assessment. No changes in treatment are suggested at this time. 11. Morbid obesity ([facility]) Encouraged portion control, decrease simple sugars and [...] time. 20. Migraine without aura, not refractory ([facility]) This is a chronic medical condition that is stable since last assessment. No changes in treatment are suggested at this time. 21. Other rosacea This is a chronic medical condition that is stable since last assessment. No changes in treatment are suggested at this time. 22. Pure hypercholesterolemia (CMS/HCC) This is a chronic medical condition [...] on January 10, 2024 documented in this encounterCarondelet [id number] Telephone encounter Note* Telephone Encounter - Jeanette Sams - 01/04/2024 2:45 PM EDT LVM [facility] [id number] Miscellaneous Notes* Telephone Encounter - Jeanette Sams - 01/04/2024 2:45 PM EDT LVM * Telephone Encounter - Ashanti Miranda MA - 01/04/2024 2:07 PM EDT Pt has not been in office since 11/2022 and needs to make an a MAWV appt , at the appt she can get the placard * Telephone Encounter - Jeanette Sams - 01/04/2024 2:01 PM EDT Pt would like to have a handicap plaque if possible. Hers is expiring documented in this encounterCarondelet [id number] Telephone encounter Note* Telephone Encounter - Ashanti Miranda MA - 01/04/2024 2:07 PM EDT Pt has not been in office since 11/2022 and needs to make an a MAWV appt , at the appt she can get the placard [facility] [id number] Telephone encounter Note* Telephone Encounter - Jeanette Sams - 01/04/2024 2:01 PM EDT Pt would like to have a handicap plaque if possible. Hers is expiring [facility] [id number] Evaluation note* Encounter Date Diagnosis Assessment Notes Treatment Notes Treatment Clinical Notes August, Allergic rhinitis, u nspecified seasonality, unspecified trigger (ICD-10 - J30.9) Drink plenty fluids, get plenty of rest. Continue your home medications as prescribed. Continue to take your daily antihistamine. Use the Flonase inhaler as prescribed until your symptoms improve. Follow-up with your family physician if no improvement in 2 to 3 days. [employer] [facility] [employer] Other 07-13-2021 NotePROCEDURE: XR GI UPPER AIR [...] Electronically authenticated by: CHLOE HESTER Date: 2020-10-21 11:41[facility]07-13-2021 NotePROCEDURE: XR GI UPPER AIR KUB DUAL [...] Electronically authenticated by: CHLOE HESTER Date: 2020-10-21 11:41[facility]* Diagnosis Medicare annual wellness visit, subsequent- Primary Essential hypertension ([facility]/H[facility]) Unspecified essential hypertension ACP (advance care planning) Other specified counseling Elevated uric acid in blood Degeneration of intervertebral disc of lumbar region with discogenic back pain Peripheral polyneuropathy Atelectasis Pulmonary collapse 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, stage 1 through stage 4 or unspecified chronic kidney disease, without heart failure ([facility]/HCC) Gastro-esophageal reflux disease without esophagitis Localized osteoporosis of [place] ([facility]) Morbid obesity ([facility]) Morbid obesity Vitamin D deficiency Actinic keratosis Elevated alkaline phosphatase level Elevated myoglobin level Other abnormal blood chemistry Estrogen deficiency Other ovarian failure Hypercalcemia Idiopathic chronic gout of multiple sites without tophus Menopausal and postmenopausal disorder Unspecified menopausal and postmenopausal disorder Migraine without aura, not refractory (CMS/HCC) Other rosacea Pure hypercholesterolemia ([facility]/HCC) Pure hypercholesterolemia Chronic kidney disease, stage 4 (severe) (CMS/HCC) BMI 36.0-36.9,adult documented in this encounter [facility] HealthcareEvaluation note* Diagnosis Left leg pain- Primary Pain in soft tissues of limb documented in this encounter [facility] HealthcareEvaluation note* Diagnosis Vitamin D deficiency- Primary Idiopathic chronic gout of multiple sites without tophus Mixed hyperlipidemia (CMS/HCC) Mixed hyperlipidemia Impaired fasting glucose documented in this encounter [facility] HealthcareEvaluation note* Diagnosis Type 2 diabetes mellitus with other specified complication, without long-term current use of insulin ([facility])- Primary Mixed hyperlipidemia ([facility]/HCC) Mixed hyperlipidemia Idiopathic chronic gout of multiple sites without tophus Hypercalcemia Vitamin D deficiency Chronic kidney disease, stage 3b (HCC) ([facility]) documented in this encounter [facility] HealthcareEvaluation note* Diagnosis Type 2 diabetes mellitus with other specified complication, without long-term current use of insulin- Primary Essential hypertension, benign (CMS/HCC) Essential hypertension, benign Morbid obesity ([facility]) Morbid obesity BMI 35.0-35.9,adult documented in this encounter [facility] HealthcareEvaluation note* Diagnosis Type 2 diabetes mellitus with other specified complication, without long-term current use of insulin ([facility])- Primary Essential hypertension, benign Essential hypertension, benign Morbid obesity ([facility]) Morbid obesity documented in this encounter [facility] HealthcareEvaluation note* Diagnosis Cellulitis of left hand- Primary Elevated uric acid in blood documented in this encounter [facility] HealthcareEvaluation note* Diagnosis Medicare annual wellness visit, subsequent- Primary ACP (advance care planning) Other specified counseling Essential hypertension Unspecified essential hypertension Actinic keratosis Atelectasis Pulmonary collapse 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, stage 1 through stage 4 or unspecified chronic kidney disease, without heart failure Elevated alkaline phosphatase level Elevated myoglobin level Other abnormal blood chemistry Elevated uric acid in blood Estrogen deficiency Other ovarian failure Gastro-esophageal reflux disease without esophagitis Hypercalcemia Idiopathic chronic gout of multiple sites without tophus Localized osteoporosis of [place] Degeneration of intervertebral disc of lumbar region with discogenic back pain Menopausal and postmenopausal disorder Unspecified menopausal and postmenopausal disorder Migraine without aura, not refractory Morbid obesity ([facility]) Morbid obesity Other rosacea Peripheral polyneuropathy Chronic kidney disease, stage 3b ([facility]) Vitamin D deficiency Mixed hyperlipidemia documented in this encounter [facility] HealthcareHistory general Narrative - Reported* Type Description Date Medical History Hypertension Surgical Historycyst removal [employer] [facility] [employer] Other Summary Purpose Family History No Family History Records FoundNo Family History Records FoundNo Family History Records FoundNo Family History Records FoundNo Family History Records Found Advance Directives No Advanced Directives Records FoundDocuments on File TypeDate RecordedPatient RepresentativeExplanationPower of Attorney07/05/2024 4:04 PMHealthcare Power of AttorneyAdvance Directives and Living Will07/05/2024 4:03 PMLiving Will Declaration Additional Source Comments INFORMATION SOURCE (unrecogn ized section and content) DATE CREATED AUTHOR 04/25/2021 [facility] DATE CREATED AUTHOR AUTHOR'S ORGANIZ ATION 06/03/2021 [facility] [employer] DATE CREATED AUTHOR AUTHOR'S ORGANIZ ATION 06/13/2021 [facility] DATE CREATED AUTHOR AUTHOR'S ORGANIZ ATION 10/13/2024 [facility] DATE CREATED AUTHOR AUTHOR'S ORGANIZ ATION 02/01/2025 [facility] EPIC REASON FOR VISIT (unrecogniz ed section and content) ReasonCommentsMed RefillAllopurinol, Carvediolol, Triamterene- hydrochlorothiazide, handicap placardReasonCommentsMed RefillAllopurinol. States if she takes it daily, but it causes her to lose her hair.ReasonCommentsMed RefillCarvedilol, Triamterene-HCTZMedicare Annual Wellness Visit Subsequent Care Teams (unrecognized sec tion and content) Team MemberRelationshipSpecialtyStart DateEnd Date Phu Anand MD [address] [place] [address] PCP - [facility]09/02/22 Phu Anand MD [address] [place] [address] PCP - GeneralInternal Medicine08/17/22Team MemberRelationshipSpecialtyStart Date End Date Phu Anand MD [address] [place] [address] PCP - [facility]09/02/22 Phu Anand MD [address] [place] [address] PCP - GeneralInternal Medicine08/17/22Team MemberRelationshipSpecialtyStart Date End Date Phu Anand MD [address] [place] [address] PCP - O [facility]09/02/22 Phu Anand MD [address] [place] [address] [facility] - [facility]08/17/22Team MemberRelationshipSpecialtyStart Date End Date Phu Anand MD [address] [place] [address] [facility] - [facility]09/02/22 Phu Anand MD [address] [place] [address] [facility] - [facility]08/17/22Te MemberRelationshipSpecialtyStart Date End Date Phu Anand MD [address] [place] [address] PCP - [facility]09/02/22 Phu Anand MD [address] [place] [address] PCP - [facility]08/17/22 Mary Almonte LPN 06/29/24Team MemberRelationshipSpecialtyStart DateEnd Date Phu Anand MD [address] [place] [address] PCP - ACO [facility]09/02/22 Phu Anand MD [address] [place] [address] PCP - GeneralInternal Medicine08/17/22 Mary Almonte, [facility] 06/29/24Team MemberRelationshipSpecialtyStart DateEnd Date Phu Anand MD [address] [place] [address] PCP - [facility]09/02/22 Phu Anand MD [address] [place] [address] PCP - GeneralInternal Medicine08/17/22 Mary Almonte, [facility] 06/29/24Te MemberRelationshipSpecialtyStart DateEnd Date Phu Anand MD [address] [place] [address] PCP - [facility]09/02/22 Phu Anand MD [address] [place] [address] PCP - GeneralInternal Medicine08/17/22 Mary Almonte, [facility] 06/29/24Te MemberRelationshipSpecialtyStart DateEnd Date Phu Anand MD [address] [place] [address] PCP - [facility]09/02/22 Phu Anand MD [address] [place] [address] PCP - GeneralInternal Medicine08/17/22 Mary Almonte, [facility] 06/29/24Te MemberRelationshipSpecialtyStart DateEnd Date Phu Anand MD [address] [place] [address] PCP - ACO [facility]09/02/22 Phu Anand MD [address] [place] [address] PCP - GeneralInternal Medicine08/17/22 Mary Almonte LPN [address] [place] [address] 06/29/24Team MemberRelationshipSpecialtyStart DateEnd Date Phu Anand MD [address] [place] [address] PCP - ACO [facility]09/02/22 Phu Anand MD [address] [place] [address] PCP - GeneralInternal Medicine08/17/22 Mary Almonte LPN [address] [place] [address] 06/29/24Team MemberRelationshipSpecialtyStart DateEnd Date Phu Anand MD [address] [place] [address] PCP - O [facility]09/02/22 Phu Anand MD [address] [place] [address] PCP - GeneralInternal Medicine08/17/22 Mary Almonte LPN [address] [place] [address] 06/29/24Team MemberRelationshipSpecialtyStart DateEnd Date Phu Anand MD [address] [place] [address] PCP - [facility]09/02/22 Phu Anand MD [address] [place] [address] [facility] - [facility]08/17/22 Mary Almonte LPN [address] [place] [address] 06/29/24Team MemberRelationshipSpecialtyStart DateEnd Date Phu Anand MD [address] [place] [address] [facility]09/02/22 Phu Anand MD [address] [place] [address] [facility] - [facility]08/17/22 Mary Almonte LPN [address] [facility] [address] [place] [address] 06/29/24 FOR RECORDS PERTAINING TO PATIENTS WHO [...] BE BASED ON THE PRIMARY CLINICAL RECORDS. [employer] [facility]. provides no warranty or guarantee of the accuracy or completeness of information in this document.
[2025-04-08] MEDS: ACETAMINOPHEN 500 MG TABLET 1000 MG PO (06:46)
[2025-04-08] MEDS: PREDNISONE 20 MG TABLET 40 MG PO (06:46)
[2025-04-08 06:51] LABS: Uric Acid 8.8 mg/dL (2.6-6.0)
[2025-04-08 07:35] LABS: Anion Gap 14.3; Blood Urea Nitrogen 35.0 mg/dL (7.0-18.0); Calcium 10.3 mg/dL (8.5-10.1); Carbon Dioxide 25.6 mmol/L (21.0-32.0); Chloride 103 mmol/L (98-107); Estimated GFR (African America 27 (>=60 mL/min/1.73m^2); Estimated GFR (Non-African Ame 22 (>=60 mL/min/1.73m^2); Glucose 206 mg/dL (74-106); Potassium 4.9 mmol/L (3.5-5.1); Sodium 138 mmol/L (136-145)
--- NOTE | 2025-04-08 09:20 | ED.GENADUL1 ---
HPI HPI - General Adult General Chief complaint: Extremity Problem, Nontraumatic Stated complaint: L LEG PAIN Time Seen by Provider: 04/08/25 06:03 Source: patient Mode of arrival: Wheelchair History of Present Illness HPI narrative: 89-year-old female presented to the emergency department and was initially seen by Dr. Soliman. Please see his full history and physical exam. Related Data Home Medications ?Medication ?Instructions ?Recorded ?Confirmed allopurinol 100 mg tablet 100 mg PO .every other day 02/25/24 04/08/25 carvedilol 25 mg tablet 25 mg PO BID 02/25/24 04/08/25 triamterene 37.5 1 tab PO QAM 02/25/24 04/08/25 mg-hydrochlorothiazide 25 mg tablet Previous Rx's ?Medication ?Instructions ?Recorded etodolac 300 mg capsule 300 mg PO Q8H PRN pain #20 caps 04/08/25 Allergies Allergy/AdvReac Type Severity Reaction Status Date / Time No Known Drug Allergies Allergy Verified 02/25/24 10:42 Opioid HPI Opioid Management Most Recent Opioid Data: Last Pain Scale 6 12/07/24, 15:33 PFSH PFS Medical History (Updated 04/08/25 @ 09:19 by Juan Tenorio MD) HTN (hypertension) ?I10 - Essential (primary) hypertension (ICD-10) Gout ?M10.9 - Gout, unspecified (ICD-10) Social History Little interest or pleasure in doing things: not at all Feeling down, depressed, or hopeless: not at all Exam Constitutional Vital Signs, click to edit/add: Last Vital Signs Temp 98.6 F 04/08/25 06:03 Pulse 77 04/08/25 06:03 Resp 18 04/08/25 06:03 BP 162/96 H 04/08/25 06:03 Pulse Ox 97 04/08/25 06:03 O2 Del Method Room Air 04/08/25 06:03 Course Vital Signs Vital signs: Vital Signs Temperature 98.6 F 04/08/25 06:03 Pulse Rate 77 04/08/25 06:03 Respiratory Rate 18 04/08/25 06:03 Blood Pressure 162/96 H 04/08/25 06:03 Pulse Oximetry 97 04/08/25 06:03 Oxygen Delivery Method Room Air 04/08/25 06:03 Temperature 98.6 F 04/08/25 06:03 Pulse Rate 77 04/08/25 06:03 Respiratory Rate 18 04/08/25 06:03 Blood Pressure 162/96 H 04/08/25 06:03 Pulse Oximetry 97 04/08/25 06:03 Oxygen Delivery Method Room Air 04/08/25 06:03 Medical Decision Making MDM Narrative Medical decision making narrative: X-ray findings are discussed with the patient. Blood work is nonspecific. On exam there is no erythema or sensitivity to touch. I have low suspicion of gout. Should be prescribed etodolac and follow-up with her PCP. We will avoid narcotics in this elderly patient. Treatment diagnosis and follow-up were discussed with the patient and her family. She was able to ambulate prior to discharge. Lab Data Lab results reviewed: Yes I reviewed the patient's lab results Labs: Lab Results 04/08/25 Range/Units 06:33 WBC 7.7 (4.0-11.0) 10^3/uL RBC 4.05 L (4.20-5.40) 10^6/uL Hgb 11.9 L (12.0-16.0) g/dL Hct 35.7 L (36.0-48.0) % MCV 88.1 (81.0-99.0) fL MCH 29.4 (26.7-34.0) pg MCHC 33.3 (29.9-35.2) g/dL RDW 13.5 (11.0-15.0) % Plt Count 258 (150-450) 10^3/uL MPV 10.4 (9.5-13.5) fL Neut % (Auto) 62.5 (43.0-75.0) % Lymph % (Auto) 25.3 (20.5-60.0) % [place] % (Auto) 8.0 (1.7-12.0) % Eos % (Auto) 2.6 (0.9-7.0) % Baso % (Auto) 0.3 (0.2-2.0) % Neut # (Auto) 4.8 (1.4-6.5) 10^3/uL Lymph # (Auto) 1.9 (1.2-3.8) 10^3/uL [place] # (Auto) 0.6 (0.3-0.8) 10^3/uL Eos # (Auto) 0.2 (0.0-0.7) 10^3/uL Baso # (Auto) 0.0 (0.0-0.1) 10^3/uL Abs Immat Gran (auto) 0.10 H (0.00-0.03) 10^3/uL Imm/Tot Granulo (auto) 1.3 H (0.0-0.5) % ESR 37 H (<=30) mm/hr Sodium 138 (136-145) mmol/L Potassium 4.9 (3.5-5.1) mmol/L Chloride 103 (98-107) mmol/L Carbon Dioxide 25.6 (21.0-32.0) mmol/L Anion Gap 14.3 BUN 35.0 H (7.0-18.0) mg/dL Creatinine 2.13 H (0.55-1.02) mg/dL Est GFR ( Amer) 27 L (>=60 mL/min/1.73m^2) Est GFR (Non-Af Amer) 22 L (>=60 mL/min/1.73m^2) BUN/Creatinine Ratio 16.4 Glucose 206 H (74-106) mg/dL Uric Acid 8.8 H (2.6-6.0) mg/dL Calcium 10.3 H (8.5-10.1) mg/dL C-Reactive Protein 2.75 H (<=0.50) mg/dL Imaging Data Knee x-ray: Radiologist's impression: ITS Impressions Knee X-Ray 04/08/25 06:20 IMPRESSION: OSTEOPENIA AND MILD DEGENERATIVE CHANGES. SMALL KNEE EFFUSION. NO ACUTE BONY FINDINGS. Impression dictated by: Nancy Cuevas M.D. 04/08/2025 9:02 AM Dictation Location: [facility]PagesMULT[facility]ITALCarefx Electronically authenticated by: [id number] Y Date: 04/08/2025 09:02 Discharge Plan Discharge Chief Complaint: Extremity Problem, Nontraumatic Clinical Impression: Acute pain of left knee Patient Disposition: Home, Self-Care Time of Disposition Decision: 09:19 Mode of Transportation: Private Vehicle Prescriptions / Home Meds: New etodolac 300 mg capsule 300 mg PO Q8H PRN (Reason: pain) Qty: 20 0RF No Action allopurinol 100 mg tablet 100 mg PO .every other day carvedilol 25 mg tablet 25 mg PO BID triamterene-hydrochlorothiazid 37.5-25 mg tablet 1 tab PO QAM Print Language: Croatian Instructions: Knee Pain (ED) Referrals: MYLES GUTIERREZ [Primary Care Provider, Internal Medicine] - 1 week
== END 2025-04-08 09:30 | disposition home or self-care (01) ==
PROVIDERS: Emergency Medicine; Emergency Provider Emergency Medicine; PCP Internal Medicine
DX: M25.562 Pain in left knee (principal)
CPT/HCPCS: 36415; 73564; 80048; 84550; 85025; 85652; 86140; 99283; J7512